=== PATIENT | female | born 1990 | race Caucasian/White ===

== ENCOUNTER 2021-01-16 22:30 | Emergency (ER) | payer MEDICAID, SELFPAY ==
[2021-01-16 23:06] VITALS: BP 112/66; PULSE 72; RESP 16; TEMP 37.3; O2SAT 96; BMI 32.8
[2021-01-17 00:06] LABS: Strep A Nucleic Acid Positive (Negative)
[2021-01-17] MEDS: Acetaminophen 325 MG TABLET 650 MG PO (00:45)
--- NOTE | 2021-01-17 00:45 | PC.NURSE ---
PT REQUESTING TYLENOL FOR PAIN.
[2021-01-17] MEDS: Amoxicillin/Potassium Clav 875 MG TABLET PO (00:56)
--- NOTE | 2021-01-17 00:56 | PC.NURSE ---
Medicated per MAR. Awaiting primary MD pinto.
--- NOTE | 2021-01-17 01:05 | PC.NURSE ---
at bedside for primary eval.
--- NOTE | 2021-01-17 01:07 | ED_ITS ---
HPI - General Adult General Chief complaint: General Medical Stated complaint: Tongue swelling Time Seen by Provider: 01/17/21 00:47 Source: patient Mode of arrival: ambulatory History of Present Illness HPI narrative: 30-year-old female with presentation for sore throat and concern for tongue swelling that started today with subjective fevers and chills but otherwise denies shortness of breath, chest pain/palpitations and denies any lip or facial swelling. Related Data Previous Rx's Medication Instructions Recorded amoxicillin-pot clavulanate 1 tab PO Q12H 10 Days #20 tab 01/17/21 [Augmentin] Allergies Allergy/AdvReac Type Severity Reaction Status Date / Time No Known Allergies Allergy Verified 01/16/21 23:05 Review of Systems Review of Systems: Pertinent positives and negatives as stated in HPI 10 point review of systems is otherwise negative. [facility] Past Medical History Source: nursing notes reviewed Medical History Anxiety Asthma Physical Exam Vital Signs: Vital Signs: Last Vital Signs Temp 99.2 F 01/16/21 23:06 Pulse 72 01/16/21 23:06 Resp 16 01/16/21 23:06 BP 112/66 01/16/21 23:06 Pulse Ox 96 01/16/21 23:06 Body Mass Index 32.8 VITAL SIGNS: Reviewed. GENERAL: Well developed, well nourished, in no acute distress. HEAD: Normocephalic/atraumatic EYES: PERRLA, EOMI EARS: Ext canals without abnormality, TMs non-bulging and non-erythematous NOSE: Nares patent bilateral OROPHARYNX: no oral lesions noted, posterior pharynx clear but noted tonsillar enlargement/erythema NECK: Supple, + adenopathy LUNGS: Normal breath sounds. No adventitious sounds or accessory muscle use. SpO2<96> CARDIOVASCULAR: Regular rate and rhythm without noted murmurs ABDOMEN: Soft, non-tender, non-distended with bowel sounds. SKIN: Inspection of the skin reveals no rashes NEUROLOGIC: Alert and oriented x 4. Strength and sensation to light touch were grossly intact x 4. Course Course Course Narrative: 30-year-old female with history and clinical presentation consistent with pharyngitis, doubt allergic reaction. And on review of all investigations patient is noted B strep positive. She received initial antibiotics and Tylenol here in the emergency room will be discharged home with remaining course of antibiotics. Medical Decision Making Lab Data Labs: Lab Results 01/16/21 Range/Units 23:17 S. pyogenes GrpA JAKE Positive A (Negative) Discharge Plan Discharge Clinical Impression: Strep pharyngitis Patient Disposition: Home, Self-Care Instructions: Strep Throat (ED) Additional Instructions: Follow-up with your primary care provider in the next 2-3 days for re-evaluation and further outpatient management. Return to the ER for acute worsening of symptoms. Prescriptions: New amoxicillin-pot clavulanate [Augmentin] 875-125 mg tablet 1 tab PO Q12H 10 Days Qty: 20 RF: 0 Referrals: Refugio Lynne MD [Primary Care Provider] - 2 days (Re-evaluation after being treated for strep pharyngitis)
== END 2021-01-17 01:31 | disposition home or self-care (01) ==
LOC: HO.ED 01-17 01:20
PROVIDERS: Emergency Provider Student in an Organized Health Care Education/Training Program; PCP Internal Medicine
DX: J02.0 Streptococcal pharyngitis (principal); J02.9 Acute pharyngitis, unspecified
CPT/HCPCS: 36415; 87651; 99283

== ENCOUNTER 2021-02-20 16:40 | Emergency (ER) | payer MEDICAID, SELFPAY ==
--- NOTE | ~2021-02-20 | CT_ITS ---
EXAMINATION: CT HEAD WITHOUT CONTRAST CLINICAL INFORMATION: Head injury and headache. COMPARISON: CT scan of the head dated 06/09/2012. TECHNIQUE: Contiguous axial imaging was performed from the skull base to vertex without intravenous administration of contrast. This CT examination was performed using dose optimization techniques as appropriate, variously including the following: *Automated exposure control *Adjustment of mA and/or kV according to patient size (this includes techniques or standardized protocols for targeted exams where dose is matched to indication/reason for exam; i.e. extremities or head) *Use of iterative reconstruction technique DLP: 733 mGy-cm FINDINGS: There is no evidence of acute intracranial hemorrhage or territorial infarction. No abnormal mass effect or midline shift is seen. Hendricks to white matter differentiation is well preserved. No extra-axial fluid collections are identified. The ventricles are normal in size. There is no abnormal attenuation within the brain parenchyma. The osseous structures and soft tissues are normal. Small mucous retention cyst is seen in the left maxillary sinus. The mastoid air cells and visualized portions of the paranasal sinuses are otherwise well aerated. CT/CT head/brain wo con IMPRESSION: No acute intracranial pathology.
[2021-02-20 17:05] VITALS: BP 102/70; PULSE 82; RESP 16; TEMP 36.7; O2SAT 98; BMI 31.8
[2021-02-20 18:00] VITALS: BP 116/68; PULSE 75; RESP 18; O2SAT 98
[2021-02-20] MEDS: Acetaminophen 325 MG TABLET 650 MG PO (18:42)
--- NOTE | 2021-02-20 19:29 | ED.FALL ---
HPI - Fall General Chief Complaint: Fall Stated Complaint: concussion? Time Seen by Provider: 02/20/21 19:27 Source: patient Mode of arrival: ambulatory Limitations: no limitations History of Present Illness HPI Narrative: 30-year-old female came in for evaluation after fell and hit her head. Patient was going down stair missed a step and fell backward hitting her head on the concrete stair, questionable LOC, patient was bleeding from laceration at the back of her head, patient now is feeling nauseous and headache. Patient declined any neck pain, patient reporting no other injuries. Related Data Previous Rx's Medication Instructions Recorded amoxicillin 875 mg-potassium 1 tab PO Q12H 10 Days #20 tab 01/17/21 clavulanate 125 mg tablet (Augmentin) Allergies Allergy/AdvReac Type Severity Reaction Status Date / Time No Known Allergies Allergy Verified 01/16/21 23:05 Review of Systems Review of Systems: All other systems are reviewed and are negative Constitutional: Reports as per HPI and Reports no additional constitutional complaints Eyes: Reports as per HPI and Reports no additional eye complaints Reports system reviewed and no additional complaints, except as documented Cardiovascular: Reports as per HPI and Reports no additional cardiovascular complaints Respiratory: Reports as per HPI and Reports no additional respiratory complaints Gastrointestinal: Reports as per HPI and Reports no additional gastrointestinal complaints Genitourinary: Reports no additional female genitourinary complaints Musculoskeletal: Reports no additional musculoskeletal complaints Skin/Breast: Reports system reviewed and no additional complaints, except as docu Psychiatric: Reports no additional psychiatric complaints Endocrine: Reports no additional endocrine complaints Hematologic/Lymphatic: Reports no additional hematologic/lymphatic complaints Allergic/Immunologic: Reports no additional allergic/immunologic complaints Reports system reviewed and no additional complaints, except as documented and Reports Abnormal speech present [facility] Past Medical History Medical History Anxiety Asthma Social History Social History Alcohol intake: unknown Patient Tobacco Use Status: Current everyday Tobacco user Use of substances other than those prescribed or required for medical reasons: No Physical Exam Vital Signs: Vital Signs: Last Vital Signs Temp 98.1 F 02/20/21 17:05 Pulse 82 02/20/21 17:05 Resp 16 02/20/21 17:05 BP 102/70 02/20/21 17:05 Pulse Ox 98 02/20/21 17:05 Body Mass Index 31.8 Vital signs have been reviewed as appeared to be correct. Blood pressure normal. Heart rate normal. Respiration rate normal. Temperature normal. Oxygen saturation normal. Appearance: Alert. Oriented X3. No acute distress. Head: Normal external exam. Normocephalic. 1cm single and superficial laceration at the occipital area of the head no active bleed No Walden signs noted. No raccoon eyes noted Eyes: PERRLA. EOMI. Conjunctiva and sclera normal. Eyelids normal. ENT: TM's Normal. Pharynx normal. Uvula midline. Moist mucous membranes. No trismus noted. No drooling noted. No muffled voice noted. Neck: Normal inspection. Neck supple. FROM. No adenopathy. Thyroid Normal. No meningeal signs. No neck mass noted. CVS: Normal heart rate and rhythm. Heart sound normal. No murmurs noted. Pulses normal throughout. Respiratory: No respiratory distress. Painless inspiration. Breath sounds normal. No wheezes/rales/rhonchi noted. Chest nontender. No accessory muscle usage noted or decreased air movement noted. Abdomen: Soft and nontender. Bowel sounds normal in all 4 quadrants. No distention noted. No organomegaly noted. No visible injury noted. Back: No CVA tenderness. Full range of motion noted. Skin: Skin warm and dry. Normal skin color. Normal skin turgor. No rashes/lesions/lacerations noted. Extremities: No lower extremity edema. Extremities exhibit normal range of motion. Extremities nontender. Neuro: Oriented X 3. Cranial nerve exam: II-XII are grossly intact No motor deficit. No sensory deficit. Reflexes normal. GCS of 15 Course Course Course Narrative: Assessment and plan. 30-year-old female came in after head injury, GCS of 15, head CT is negative, neuro exam is normal, patient up-to-date on her vaccination no tetanus shot is needed, small laceration on the occipital scalp area need no suturing no active bleeding. MDM - Fall Imaging Data CT scan - head: Radiologist's impression: No acute pathology. Discharge Plan Discharge Clinical Impression: Concussion with loss of consciousness Patient Disposition: Home, Self-Care Instructions: Concussion (ED) Prescriptions: No Action amoxicillin-pot clavulanate [Augmentin] 875-125 mg tablet 1 tab PO Q12H 10 Days Qty: 20 RF: 0 Referrals: Physician,Unknown [Primary Care Provider] - 2 days
[2021-02-20] MEDS: oxyCODONE HCl Immed Release 5 MG TABLET PO (21:34)
[2021-02-20] MEDS: Ondansetron ODT 4 MG TAB.RAPDIS TRANSLINGU (21:34)
== END 2021-02-20 22:21 | disposition home or self-care (01) ==
LOC: HO.ED 19:49
PROVIDERS: Emergency Provider Emergency Medicine
DX: S06.0X0A Concussion without loss of consciousness, initial encounter (principal); S01.01XA Laceration without foreign body of scalp, initial encounter; W10.8XXA Fall (on) (from) other stairs and steps, initial encounter; Y93.89 Activity, other specified; Y92.9 Unspecified place or not applicable; Y99.9 Unspecified external cause status
CPT/HCPCS: 70450; 99284; 99285

== ENCOUNTER → 2021-03-09 11:43 | Outpatient (BNVA) | payer MEDICAID, SELFPAY | PROVIDERS: Visit Provider Obstetrics & Gynecology ==

== ENCOUNTER 2021-03-10 15:26 | Outpatient (REF) | payer MEDICAID, SELFPAY | END 2021-03-10 15:27 | disposition home or self-care (01) | LOC: HO.LAB 15:26 | PROVIDERS: Visit Provider Internal Medicine | DX: Z20.822 Contact with and (suspected) exposure to COVID-19 (principal) | CPT/HCPCS: C9803; U0003; U0005 ==

== ENCOUNTER 2021-07-13 11:22 | Outpatient (REF) | payer MEDICAID, SELFPAY ==
[2021-07-13 13:03] LABS: Binax Internal Control QC Valid; Binax Now Covid-19 Ag Positive (Negative)
== END 2021-07-13 11:23 | disposition home or self-care (01) ==
LOC: HO.LAB 11:22
PROVIDERS: Visit Provider Internal Medicine
DX: Z20.822 Contact with and (suspected) exposure to COVID-19 (principal)
CPT/HCPCS: C9803

== ENCOUNTER 2021-08-23 22:06 | Emergency (ER) | payer MEDICAID, SELFPAY ==
--- NOTE | ~2021-08-23 | US_ITS ---
EXAMINATION: US OBSTETRICAL ULTRASOUND CLINICAL INFORMATION: Cramping with positive test COMPARISON: None. LMP: 07/05/2021. Gestational age by maternal dates is 7 weeks 0 day. Estimated date of delivery by maternal dates is 04/11/2022. TECHNIQUE: Transabdominal scanning was performed. FINDINGS: There is a single intrauterine gestational sac with visible yolk sac, embryo/fetus, and cardiac activity. There is no significant subchorionic hemorrhage or hematoma. The uterus measures 10.0 x 5.7 x 6.7 cm. HR: 120 beats per minute. CRL (crown rump length): 0.74 cm (6 weeks 5 days +/- 4 days). МАРИЯ (estimated date of delivery): 04/13/2022 +/- 4 days. MATERNAL ADNEXA: The right maternal ovary measures 4.1 x 2.5 x 1.5 cm. The left maternal ovary measures 3.4 x 1.8 x 2.7 cm. There is no significant maternal adnexal mass. No maternal pelvic ascites. US/US OB <= 14 weeks fetus IMPRESSION: 1. Single intrauterine gestation with ultrasound gestational age of 6 weeks 5 days +/- 4 days. 2. Estimated date of delivery is 04/13/2022 +/- 4 days. 3. No maternal adnexal mass or pelvic ascites.
--- NOTE | 2021-08-23 22:11 | ECG_ITS ---
Test Reason : SYNCOPE Blood Pressure : / mmHG Vent. Rate : 072 BPM Atrial Rate : 072 BPM P-R Int : 166 ms QRS Dur : 088 ms QT Int : 416 ms P-R-T Axes : 028 049 022 degrees QTc Int : 455 ms Normal sinus rhythm Normal ECG When compared with ECG of 24-JUL-2019 16:36, No significant change was found Referred By: Luz Whitfield Electronically Signed By:SUMMER HANEY
[2021-08-23 22:12] VITALS: BP 118/76; BP 97/56; PULSE 77; PULSE 80; RESP 18; TEMP 37.1; O2SAT 98; O2SAT 99; BMI 30.9
[2021-08-23 22:44] VITALS: BP 107/61; PULSE 66
[2021-08-23 22:44] LABS: MANUAL DIFF FLAG NO
[2021-08-23 22:45] VITALS: BP 105/65; PULSE 73
[2021-08-23 22:46] LABS: Basophils Absolute Auto 0.1 X10*3/uL (0.0-0.2); Basophils Percent Auto 0.6 % (0-2); Eosinophils Absolute Auto 0.2 X10*3/uL (0.0-0.4); Eosinophils Percent Auto 1.8 % (0-4); Hemoglobin 10.5 g/dl (12.0-16.0); Imm Gran Abs Auto 0.03 X10*3/uL (0.00-0.03); Imm Gran Pct Auto 0.3 % (0.0-0.4); Lymphocytes Absolute Auto 3.3 X10*3/uL (1.2-4.9); Lymphocytes Percent Auto 30.6 % (20-40); Mean Corpuscular HGB Conc 32.8 g/dl (31.0-35.0); Mean Corpuscular Hemoglobin 28.5 pg (27.0-33.0); Mean Corpuscular Volume 86.7 fL (80.0-98.0); Mean Platelet Volume 9.4 fL (9.4-12.3); Monocytes Absolute Auto 0.9 X10*3/uL (0.1-1.2); Monocytes Percent Auto 7.9 % (2-11); Neutrophils Absolute Auto 6.4 x10*3/uL (2.0-8.3); Neutrophils Percent Auto 58.8 % (45-73); Platelet Count 219 X10*3/uL (160-400); Red Blood Count 3.69 X10*6/uL (4.20-5.50); Red Cell Distribution Width 13.1 % (11.0-16.0); White Blood Count 10.9 X10*3/uL (4.8-10.8)
[2021-08-23 22:48] VITALS: BP 97/56; PULSE 64
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
[2021-08-23 23:01] LABS: Alanine Aminotransferase 11 U/L (0-31); Albumin Level 3.7 g/dL (3.5-5.0); Alkaline Phosphatase 53 U/L (39-117); Anion Gap 9 (12-20); Aspartate Amino Transferase 17 U/L (5-31); Bilirubin Total 0.2 mg/dL (0.0-1.0); Blood Urea Nitrogen 8 mg/dL (9-16); Calcium 9.1 mg/dL (8.4-10.2); Carbon Dioxide 29 mmol/L (22-29); Chloride 105 mmol/L (96-108); Creatinine Clr Calc Pharmacy 123.6; Estimated Glomerular Filt Rate > 60; Glucose Random 105 mg/dL (60-115); Potassium 3.4 mmol/L (3.3-5.1); Sodium 140 mmol/L (135-145); Total Protein 5.8 g/dL (6.5-8.0)
[2021-08-23 23:34] LABS: HCG Quantitative 14461 mIU/mL
[2021-08-24 00:18] VITALS: BP 93/53; PULSE 71; RESP 14; O2SAT 97
[2021-08-24] MEDS: 0.9 % Sodium Chloride 1,000 ML 999 ML IV (00:33)
== END 2021-08-24 01:04 | disposition home or self-care (01) ==
PROVIDERS: Emergency Provider Student in an Organized Health Care Education/Training Program
DX: O26.91 Pregnancy related conditions, unspecified, first trimester (principal); R55 Syncope and collapse; R10.9 Unspecified abdominal pain; F17.200 Nicotine dependence, unspecified, uncomplicated; Z71.6 Tobacco abuse counseling; Z3A.01 Less than 8 weeks gestation of pregnancy
CPT/HCPCS: 36415; 76801; 80053; 84702; 85025; 93005; 96360; 99284

== ENCOUNTER 2022-03-13 09:56 | Emergency (ER) | payer MEDICAID, SELFPAY ==
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
[2022-03-13 10:15] VITALS: BP 130/62; PULSE 66; RESP 16; TEMP 36.5; O2SAT 97; BMI 30.1
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
[2022-03-13] MEDS: Acetaminophen 325 MG TABLET 975 MG PO (10:43)
== END 2022-03-13 11:06 | disposition home or self-care (01) ==
PROVIDERS: Emergency Provider Emergency Medicine
DX: S00.33XA Contusion of nose, initial encounter (principal); R04.0 Epistaxis; F17.200 Nicotine dependence, unspecified, uncomplicated; Y04.8XXA Assault by other bodily force, initial encounter; Y93.9 Activity, unspecified; Y92.9 Unspecified place or not applicable; Y99.9 Unspecified external cause status; Z71.6 Tobacco abuse counseling; Z79.899 Other long term (current) drug therapy
CPT/HCPCS: 70160; 99283

== ENCOUNTER 2022-03-28 12:36 | Emergency (ER) | payer MEDICAID, SELFPAY ==
[2022-03-28 12:52] VITALS: BP 132/90; PULSE 111; O2SAT 97; BMI 28.8
[2022-03-28] MEDS: LORazepam 1 MG TABLET PO (12:59)
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
--- NOTE | 2022-03-28 13:44 | MHC.CARE ---
Pt presented to [facility] ED for anxiety and depression. Pt is currently followed by a therapist at [facility]. Pt feels she needs to be restarted on medications as they would be helpful in the past.? Pt does not endorse SI/HI/VH/AH. Pt expressed interest in group therapy and wants more support in help coping with life stressors.? CARE Team emailed [facility] to placed Pt on the list to see a psychiatrist at [facility]. CARE Team referred Pt to PHP at [facility]. CARE Team will provided Pt with a follow up call 1-[address] Cid in agreement with plan of care.
--- NOTE | 2022-03-31 09:37 | MHC.CARE ---
CARE Team left with Pt.
== END 2022-03-28 14:54 | disposition home or self-care (01) ==
PROVIDERS: Emergency Provider Emergency Medicine
DX: F41.9 Anxiety disorder, unspecified (principal); F32.A Depression, unspecified; F17.200 Nicotine dependence, unspecified, uncomplicated
CPT/HCPCS: 99283; 99284

== ENCOUNTER → 2022-04-06 13:34 | Outpatient (BNVA) | payer MEDICAID, SELFPAY | PROVIDERS: PCP Internal Medicine; Visit Provider Surgery | DX: K64.4 Residual hemorrhoidal skin tags (principal) | CPT/HCPCS: 46600; 99202 ==

== ENCOUNTER 2022-04-09 20:58 | Emergency (ER) | payer MEDICAID, SELFPAY ==
[2022-04-09 21:03] VITALS: BP 126/83; PULSE 75; RESP 18; TEMP 36.7; O2SAT 97; BMI 29.7
[2022-04-09] MEDS: Ondansetron ODT 4 MG TAB.RAPDIS TRANSLINGU (21:07)
[2022-04-09 22:37] LABS: COVID-19 Test Negative (Negative); IDNOW Serial# 55D5AD1C
== END 2022-04-10 00:03 | disposition left against medical advice (07) ==
PROVIDERS: Emergency Provider Emergency Medicine; PCP Internal Medicine
DX: R11.2 Nausea with vomiting, unspecified (principal); R19.7 Diarrhea, unspecified; Z20.822 Contact with and (suspected) exposure to COVID-19; F17.200 Nicotine dependence, unspecified, uncomplicated
CPT/HCPCS: 87635; 99281; 99283

== ENCOUNTER 2022-06-24 13:08 | Emergency (ER) | payer OTHER, SELFPAY ==
[2022-06-24 13:13] VITALS: BP 103/72; BP 140/90; PULSE 100; PULSE 73; RESP 18; TEMP 36.8; O2SAT 98; BMI 30.6
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
== END 2022-06-24 15:58 | disposition home or self-care (01) ==
PROVIDERS: Emergency Provider Student in an Organized Health Care Education/Training Program; PCP Internal Medicine
DX: S13.4XXA Sprain of ligaments of cervical spine, initial encounter (principal); R51.9 Headache, unspecified; M54.2 Cervicalgia; F17.210 Nicotine dependence, cigarettes, uncomplicated; V43.52XA Car driver injured in collision with other type car in traffic accident, initial encounter; Y93.9 Activity, unspecified; Y92.410 Unspecified street and highway as the place of occurrence of the external cause; Y99.9 Unspecified external cause status; Z79.899 Other long term (current) drug therapy; Z71.6 Tobacco abuse counseling
CPT/HCPCS: 70450; 72125; 99283; 99284

== ENCOUNTER 2022-07-12 07:08 | Day surgery (SDC) | payer OTHER, MEDICAID, SELFPAY ==
[2022-05-09 14:32] VITALS: BMI 29.6
--- NOTE | 2022-05-16 09:26 | HO.ANESPROP2 ---
HPI - Anesthesia Eval Consult details Narrative: 31yo F for EUA, Hemorrhoidectomy PMFSH Active Problems Active Problems: All Active Problems (Updated 05/09/22 @ 14:17 by Kristen Carey RN) Family planning (Acute) External hemorrhoids with complication (Acute) Past Medical History Medical History (Updated 05/09/22 @ 14:17 by Kristen Carey RN) Anxiety Asthma External hemorrhoids with complication History of COVID-19 Surgical History Surgical History (Updated 05/09/22 @ 14:19 by Kristen Carey RN) Hx of section Hx of dilation and curettage Tubal ligation status Social History Social History Alcohol intake: unknown Patient Tobacco Use Status: Current everyday Tobacco user Meds Allergies Allergy/AdvReac Type Severity Reaction Status Date / Time No Known Allergies Allergy Verified 04/09/22 21:03 Exam Exam Date and Time: May 16, 2022 0926 Height,Weight and Vital Signs: Height 5 ft 3 in Weight 75.863 kg Assessment and Plan Assessment Anesthesia Assessment: Chart Reviewed
--- NOTE | 2022-07-11 09:39 | HO.ANESPROP2 ---
Documented by User: Taniya Villatoro NP 07/11/22 09:39 HPI - Anesthesia Eval Consult details Narrative: 32yo F for EUA, Hemorrhoidectomy PMFSH Active Problems Active Problems: All Active Problems (Updated 06/25/22 @ 00:01 by Roe Vaz) Family planning (Acute) External hemorrhoids with complication (Acute) Past Medical History Medical History Anxiety Asthma External hemorrhoids with complication History of COVID-19 Surgical History Surgical History (Updated 05/09/22 @ 14:19 by Kristen Carey, RN) Hx of section Hx of dilation and curettage Tubal ligation status Social History Social History Alcohol intake: unknown Patient Tobacco Use Status: Current everyday Tobacco user Tobacco use type: Cigarette Cigarettes Per Day: 6 Use of substances other than those prescribed or required for medical reasons: Yes Advance Directives: No Advance Directives Information Provided: Yes Meds Allergies Allergy/AdvReac Type Severity Reaction Status Date / Time No Known Allergies Allergy Verified 06/24/22 13:20 Exam Exam Date and Time: July 11, 2022 0939 Height,Weight and Vital Signs: Height 5 ft 3 in Weight 75.863 kg Assessment and Plan Assessment Anesthesia Assessment: Chart Reviewed Documented by User: Lisa Oliva MD 07/12/22 09:45 [facility] Past Medical History Medical History Anxiety Asthma External hemorrhoids with complication History of COVID-19 Functional capacity: independent ambulation Patient : No Family History Family history of problems with anesthesia: No Surgical History Surgical History (Updated 05/09/22 @ 14:19 by Kristen Carey RN) Hx of section Hx of dilation and curettage Tubal ligation status Social History Social History Alcohol intake: unknown Patient Tobacco Use Status: Current everyday Tobacco user Tobacco use type: Cigarette Cigarettes Per Day: 6 Use of substances other than those prescribed or required for medical reasons: Yes Advance Directives: No Advance Directives Information Provided: Yes Meds Allergies Allergy/AdvReac Type Severity Reaction Status Date / Time No Known Allergies Allergy Verified 06/24/22 13:20 Exam Airway Mallampati Class: II TM Dist: >3cm Neck ROM: Full Heart: RRR Lungs: CtA Assessment and Plan Final Anesthetic Review Family History of Problems with Anesthesia: No ASA Class: II Final Preanesthetic Review: Meds/Allgs Chart Reviewed and Consent Obtained/Reviewed Patient Risk: Low Procedure Risk: Low Anesthetic Plan Anesthetic Plan: GA Disposition: Standard PACU
[2022-07-12] VITALS (9 sets, daily range): BP systolic 106–121; BP diastolic 61–76; PULSE 64–76; RESP 16–18; TEMP 36.2–36.8; O2SAT 99–100; BMI 28.8
[2022-07-12] MEDS: Lactated Ringers 1,000 ML 100 ML IVCONT (07:58)
--- NOTE | 2022-07-12 09:22 | W.PM.OPN ---
Operative Note Operative Note Date of Service: 07/12/22 Narrative: Preop diagnosis: Hemorrhoids with complication Postop diagnosis: Internal and external complications x2 Procedure: Exam under anesthesia, hemorrhoidectomy x2 columns Surgeon: Ihsan Dick MD Patient is a 32-year-old female has been complaining of chronic issues with pain, discomfort with her hemorrhoids. She was seen in the office. She was noted to have non bulky hemorrhoidal columns on both the left and right side. However she had wanted to proceed with hemorrhoidectomy because of her discomfort. She was aware of the risks, benefits, and alternatives. She was brought to the operating room. She was placed in prone malik-knife position under general anesthesia via endotracheal tube. The buttocks were retracted with wide tape laterally. The perianal area was prepped and draped in the usual sterile fashion. A surgical time-out was done. The patient received Cefotan 2 g IV preoperatively Examination of the ulnar feels revealed external hemorrhoid columns on both the left and right side. I inserted a Javi Avalos retractor. I examined the anal canal circumferentially. There was no fissure or induration. These appeared to be mixed internal and hemorrhoidal columns on both the left and the right. There were no other lesions seen. I applied a Doyle grasper at the hemorrhoidal column on the left to retract this out into the field. I placed a figure stitch at the pedicle using chromic 3-0. I made an incision around this hemorrhoidal column to the perianal skin using a blade 15. I excised this hemorrhoidal column above the plane of sphincters using Metzenbaum scissors. Again this appeared to be a mix of internal and external hemorrhoids. I closed the incision with a running chromic 3-0 stitch. Hemostatic [id number] sutures were placed for oozing areas. The the column on the right side was also retracted with a Doyle grasper. I made a figure of 8 stitch at the pedicle and made incision around this hemorrhoidal column to the perianal skin with a blade 15. I excised this hemorrhoidal column along this incision about the plane of sphincters using Metzenbaum scissors. I closed this incision with a running chromic 3-0 stitch. Hemostasis was confirmed. Once hemostasis was achieved, I infiltrated the perianal area with Marcaine 0.5% for postop analgesia. Dressings were applied. The procedure was completed. The patient tolerated well. There were no immediate complications. Initial and final counts of sponges and instruments were correct. Estimated blood loss about 15 cc The patient was extubated without difficulty and transferred to the recovery room with stable vital signs.
[2022-07-12] MEDS: Acetaminophen 1,000 MG/100 ML PIGGYBACK 400 MG IV (10:45)
--- NOTE | 2022-07-12 11:24 | HO.POSTANES ---
Post Anesthesia Evaluation Post Anesthesia Evaluation Vital Signs: Vital Signs Temp Pulse Resp BP Pulse Ox O2 Del Method 07/12/22 10:55 98.0 F 67 18 107/69 99 Room Air 07/12/22 10:40 68 18 114/65 99 Room Air 07/12/22 10:10 66 18 115/71 99 Room Air 07/12/22 09:55 68 16 121/76 99 Room Air 07/12/22 09:50 64 16 106/74 99 Room Air 07/12/22 09:45 71 16 116/75 99 Room Air 07/12/22 09:40 97.1 F 68 16 111/76 99 Room Air 07/12/22 07:40 97.5 F 76 16 108/61 100 Room Air Anesthesia: General Endotracheal-GETA Mental Status: Awake Pain Control: Satisfactory Nausea/Vomiting: None Hydration: Adequate Anesthesia-Related Issues: No Anes. Related Issues
== END 2022-07-12 12:15 | disposition home or self-care (01) ==
PROVIDERS: PCP Internal Medicine; Visit Provider Surgery
PROC: (CPT 46250; principal; 2022-07-12 08:40)
DX: K64.4 Residual hemorrhoidal skin tags (principal); F41.1 Generalized anxiety disorder; J45.909 Unspecified asthma, uncomplicated; Z79.899 Other long term (current) drug therapy; F17.210 Nicotine dependence, cigarettes, uncomplicated
CPT/HCPCS: 46250; 88304; J0131; J1100; J2250; J2405; J2795; J3010

== ENCOUNTER 2022-12-17 21:15 | Emergency (ER) | payer MEDICAID, SELFPAY ==
--- NOTE | ~2022-12-17 | XR_ITS ---
EXAMINATION: XR CHEST CLINICAL INFORMATION: Injury COMPARISON: 09.15.2019 TECHNIQUE: 2 views of the chest were obtained. FINDINGS: No significant abnormality is noted involving the heart, lungs, mediastinum, bony thorax or soft tissues. XR/XR chest 2V IMPRESSION: Unremarkable examination.
[2022-12-17 21:18] VITALS: BP 100/60; PULSE 92; RESP 18; TEMP 36.6; O2SAT 95; BMI 28.3
[2022-12-17 22:57] VITALS: BP 106/61; PULSE 68; RESP 18; TEMP 36.9; O2SAT 98
--- NOTE | 2022-12-17 23:07 | PC.NURSE ---
patient is in bed with eyes open patient stated the pain is a 10/10 patient vitals are stable patient is AAOX4 patient is waiting to be seen by the doctor patient will continue to be monitored for safety
--- NOTE | 2022-12-17 23:26 | ED.GENADULT ---
HPI - General Adult General Chief complaint: Dyspnea Stated complaint: rib cage injured, difficulty breathing Time Seen by Provider: 12/17/22 23:26 Source: patient Mode of arrival: ambulatory Limitations: no limitations History of Present Illness HPI narrative: Patient is a 32 year old assigned female at with no reported medical history presenting to the emergency department today with left rib pain. Patient states that she was messing around with her sister when she heard a crack on the left side of her rib cage. Patient states that it now hurts to take a deep breath. Patient denies any head strike or loss of consciousness, dizziness, lightheadedness, abdominal pain, nausea, vomiting, fever, chills, blurry vision, double vision, loss of vision, chest pain, difficulty breathing, shortness of breath, back pain, night sweats, pain with urination, increased urinary frequency, increased urinary urgency, blood in her urine or stool, syncope or a near syncopal episode, recent trauma or falls, bowel incontinence, bladder incontinence, bowel retention, bladder retention, or any other complaints at this time. Onset (ago): hour(s) Location: left (ribs) Radiation: non-radiation Severity: mild Severity scale (1-10): 2 Quality: aching Pain Consistency: constant Relieving factors: none Exacerbating factors: other (breathing) Associated symptoms: denies other symptoms Treatments prior to arrival: none Related Data Previous Rx's Medication Instructions Recorded hydroxyzine HCl 25 mg tablet 25 mg PO Q8H PRN anxiety #30 tabs 03/28/22 cyclobenzaprine 5 mg tablet 5 mg PO TID PRN muscle spasm #10 06/24/22 tabs ibuprofen 600 mg tablet 600 mg PO Q6H PRN pain #20 tabs 06/24/22 docusate sodium 100 mg capsule 100 mg PO BID #60 caps 07/12/22 (Colace) ibuprofen 600 mg tablet 600 mg PO Q6H PRN pain #30 tabs 07/12/22 oxycodone-acetaminophen 5 mg-325 1 tab PO Q4-6H PRN pain #30 tabs 07/12/22 mg tablet (Percocet) Allergies Allergy/AdvReac Type Severity Reaction Status Date / Time No Known Allergies Allergy Verified 06/24/22 13:20 Review of Systems Constitutional: Constitutional: Reports no additional constitutional complaints, Denies chills, Denies fever(s) and Denies night sweats Eyes: Eyes: Reports no additional eye complaints, Denies blurry vision, Denies change in vision, Denies diplopia, Denies eye discharge, Denies loss of vision and Denies eye pain ENT: Denies dizziness Cardiovascular: Cardiovascular: Reports no additional cardiovascular complaints, Denies chest pain, Denies lightheadedness, Denies Loss of Consciousness and Denies dyspnea Respiratory: Respiratory: Reports no additional respiratory complaints and Denies dyspnea Gastrointestinal: Gastrointestinal: Reports no additional gastrointestinal complaints, Denies abdominal pain, Denies melena, Denies hematochezia, Denies change in bowel habits and Denies change in stool character Genitourinary: Genitourinary: Denies hematuria, Denies urinary frequency, Denies dysuria, Denies urinary incontinence, Denies urinary hesitancy and Denies urinary urgency Musculoskeletal: Musculoskeletal: Reports no additional musculoskeletal complaints, Denies numbness and Denies tingling Comments: left rib pain Neurologic: Denies dizziness, Denies loss of vision, Denies numbness and Denies tingling Psychiatric: Psychiatric: Reports no additional psychiatric complaints Endocrine: Endocrine: Reports no additional endocrine complaints Hematologic/Lymphatic: Hematologic/Lymphatic: Reports no additional hematologic/lymphatic complaints Allergic/Immunologic: Allergic/Immunologic: Reports no additional allergic/immunologic complaints PMFSH Past Medical History Attestation statement: The following information was validated with the patient. Source: old records reviewed and nursing notes reviewed Medical History Anxiety Asthma External hemorrhoids with complication History of COVID-19 Surgical History Hx of section Hx of dilation and curettage Tubal ligation status Social History Social History Alcohol intake: current Alcohol intake frequency: holidays/special occasions only Alcohol type: hard liquor Patient Tobacco Use Status: Current everyday Tobacco user Tobacco use type: Cigarette Cigarettes Per Day: 6 Smoked in Last 30 Days: Yes Use of substances other than those prescribed or required for medical reasons: No Substance Use Type: Marijuana Substance Use Frequency: Chronic Longstanding Last Used Substance: Just Prior to Admission Any prior treatment program specific to substance use: No Advance Directives: No Advance Directives Information Provided: No Patient : No Physical Exam ED Vital Signs: Vital Signs - 24 hr 12/17/22 21:18 12/17/22 22:57 Temperature 98 F 98.4 F Pulse Rate 92 68 Respiratory Rate 18 18 Blood Pressure 100/60 106/61 Pulse Oximetry 95 98 Oxygen Delivery Method Room Air Room Air BMI result Body Mass Index 28.3 Const General: cooperative, no acute distress, alert and awake Nutritional Appearance: well nourished Orientation/consciousness: patient oriented x3 Limitations: no limitations HENMT Head: Yes normal to inspection and Yes atraumatic Ears: hearing grossly normal bilaterally and external ears normal General nose exam: Normal external nose present, no nasal discharge noted and no epistaxis Face and sinus: Yes normal facial exam, No abrasion and No laceration Mouth: Normal oral and palatal mucosa present, no drooling and no muffled voice Eyes General: appearance normal, both eyes and all related structures Periorbital: periorbital findings normal Eyelids: Yes eyelids normal Conjunctivae: conjunctivae normal Pupils: Equal, round and reactive pupils present EOM: EOMs intact bilaterally Neck Neck: Yes normal visual inspection, Yes full ROM and Yes no lymphadenopathy Chest Chest palpation & inspection: normal inspection of the chest Resp Effort & Inspection: normal respiratory effort and able to speak in complete sentences Auscultation: clear to auscultation bilaterally GI Inspection: Yes normal to inspection Neuro General: patient oriented x3 and moves all extremities Cranial nerves: Yes Equal, round and reactive pupils present Cognition (Neuro): normal cognition Motor exam (neuro): 5/5 motor strength present throughout Sensory Exam: Normal double simultaneous stimulation for sensation Coordination: [id number] test normal Extrem General: Yes normal to inspection, Yes full ROM and Yes capillary refill normal Psych Appearance: grossly normal Mental Status: mental status grossly normal Affect: normal affect Attitude: cooperative Thought process: Normal thought process present Thought content: Normal thought content present Insight: Good insight present (Psych) Medications Administered Discontinued Medications Generic Name Dose Route Start Last Admin Trade Name Freq PRN Reason Stop Dose Admin Ketorolac Tromethamine 15 mg 12/17/22 23:50 12/18/22 01:07 Ketorolac Tromethamine 15 Mg/Ml Vial IM 12/17/22 23:51 15 mg ONCE ONE Administration Medical Decision Making Medical Decision Making MDM Narrative: Patient is a 32 year old assigned female at with no reported medical history presenting to the emergency department today with left sided rib pain. Patient's physical exam was unremarkable. Patient's chest x-ray showed no acute process. I explained my physical exam findings as well as all test results to the patient. I answered all questions asked by the patient. Patient received IM Toradol which she stated helped her symptoms significantly. I stressed the importance of the patient taking her medication as prescribed. I stressed the importance of the patient following up with her primary care provider. I stressed the importance of the patient returning to the emergency department immediately if her symptoms were to worsen or if she were to develop any dizziness, shortness of breath, difficulty breathing, chest pain, blurry vision, loss of vision, nausea, vomiting, abdominal pain, fever, chills, back pain, or any other complaints. Patient verbalized agreement and understanding with this treatment plan and discharge. Differential Diagnosis Differential Diagnoses: The differential diagnosis associated with the presentation includes rib contusion, rib pain Independent Interpretation I performed an independent interpretation of an: Plain X-Ray Interpretation: My interpretation is in agreement with the radiologist's impression of this imaging study. EXAMINATION: XR CHEST CLINICAL INFORMATION: Injury COMPARISON: 09.15.2019 TECHNIQUE: 2 views of the chest were obtained. FINDINGS: No significant abnormality is noted involving the heart, lungs, mediastinum, bony thorax or soft tissues. XR/XR chest 2V IMPRESSION: Unremarkable examination. Dictated By: Shashank Calixto MD Signed By: Electronically signed by Shashank Calixto MD 12/17/22 8373 Discharge Plan Discharge Clinical Impression: Pain in rib Patient Disposition: Home, Self-Care Instructions: Chest Pain (DC) Additional Instructions: Follow up with your primary care provider. Return to the emergency department immediately if your symptoms worsen or if you develop any dizziness, shortness of breath, difficulty breathing, chest pain, blurry vision, loss of vision, nausea, vomiting, abdominal pain, fever, chills, back pain, or any other complaints. Prescriptions: No Action hydroxyzine HCl 25 mg tablet 25 mg PO Q8H PRN (Reason: anxiety) Qty: 30 0RF oxycodone-acetaminophen [Percocet] 5-325 mg tablet 1 tab PO Q4-6H PRN (Reason: pain) Qty: 30 0RF Rx Instructions: Partial Fill upon patient request. docusate sodium [Colace] 100 mg capsule 100 mg PO BID Qty: 60 2RF ibuprofen 600 mg tablet 600 mg PO Q6H PRN (Reason: pain) Qty: 30 0RF ibuprofen 600 mg tablet 600 mg PO Q6H PRN (Reason: pain) Qty: 20 0RF cyclobenzaprine 5 mg tablet 5 mg PO TID PRN (Reason: muscle spasm) Qty: 10 0RF Referrals: [facility] [Primary Care Provider] - Stand Alone Forms: Work/School Release Interventions: ED Discharge Assessment Last Done: 12/18/22 01:51 Discharge Date/Time: 12/18/22 01:51 Print Language: Haitian
[2022-12-18] MEDS: Ketorolac Tromethamine 15 MG/ML VIAL IM (01:07)
== END 2022-12-18 01:51 | disposition home or self-care (01) ==
PROVIDERS: Emergency Provider Emergency Medicine
DX: R07.81 Pleurodynia (principal); F17.210 Nicotine dependence, cigarettes, uncomplicated; F12.90 Cannabis use, unspecified, uncomplicated; Z79.899 Other long term (current) drug therapy
CPT/HCPCS: 71046; 96372; 99284; J1885

== ENCOUNTER 2022-12-18 10:29 | Emergency (ER) | payer MEDICAID, SELFPAY ==
--- NOTE | ~2022-12-18 | CT_ITS ---
EXAMINATION: CT CHEST WITHOUT CONTRAST CLINICAL INFORMATION: Trauma, evaluate for fracture. COMPARISON: Chest x-ray 12/17/2022. TECHNIQUE: Multidetector volumetric CT imaging of the chest was done. Axial MIP volume rendering provided. Sagittal and coronal reformatted images were obtained. This CT examination was performed using dose optimization techniques as appropriate, variously including the following: *Automated exposure control *Adjustment of mA and/or kV according to patient size (this includes techniques or standardized protocols for targeted exams where dose is matched to indication/reason for exam; i.e. 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 LUNGS: The lungs are well-expanded and clear of acute pneumonic process. There is a 3 mm nodule along the left major fissure axial image 249/9, likely fissure lymph node. No additional nodules visualized. . MEDIASTINUM: Thyroid lobes are symmetrical and normal. Central trachea and the bronchi widely patent. Heart size and great vessels are normal caliber. No pericardial effusion seen. No abnormal lymph nodes seen. CORONARY ARTERY CALCIFICATION: None visualized on this study. PLEURA: There is no pleural effusion. No pleural mass or thickening. AXILLA: No lymphadenopathy. UPPER ABDOMEN: Visualized liver, spleen, pancreas appears unremarkable. There is a 8 mm radiopaque stone midpole left kidney no caliectasis or hydronephrosis seen. OSSEOUS STRUCTURES: There is no aggressive lytic or sclerotic process seen. CT/CT chest wo IV con IMPRESSION: There is no acute left rib fracture seen.. There is a nonobstructive 8 mm radiopaque calculi mid pole left . Fleischner guidelines were followed.
[2022-12-18 10:35] VITALS: BP 116/75; BP 124/80; PULSE 65; PULSE 68; RESP 16; TEMP 35.9; O2SAT 98; O2SAT 99; BMI 29.2
--- NOTE | 2022-12-18 10:40 | ECG_ITS ---
Test Reason : RIB PAIN Blood Pressure : / mmHG Vent. Rate : 062 BPM Atrial Rate : 062 BPM P-R Int : 186 ms QRS Dur : 086 ms QT Int : 466 ms P-R-T Axes : 063 060 041 degrees QTc Int : 472 ms Normal sinus rhythm Normal ECG When compared with ECG of 23-AUG-2021 22:26, No significant change was found Referred By: Radha Ware Electronically Signed By:SUMMER HANEY
--- NOTE | 2022-12-18 10:42 | ED_ITS ---
HPI - General Adult General Chief complaint: General Medical Stated complaint: RIB PAIN,UNK IF INJURY, *NO AGE/SEX/GIVEN* Time Seen by Provider: 12/18/22 10:33 Source: patient and EMS Mode of arrival: EMS Limitations: no limitations History of Present Illness HPI narrative: This is a 32-year-old female who presents to the ER with complaints of left- sided rib pain which began yesterday. Patient reports she was wrestling with her sister and felt a cracking sensation in her left ribs. She was seen here in the ER and had x-rays of her left ribs which were negative for any bony abnormality. She was given a dose of Toradol and sent home with recommendations for supportive care. Patient reports today when she woke up she was walking to the bathroom and felt a lot of pain her left ribs as well as shortness of breath. The next thing she knew she woke up on the ground surrounded by her family. Denies pre fall symptoms of headache, dizziness or palpitations. She is concerned that she passed out. She reports increased pain to the left ribs which is worsened with movement breathing. She denies any cough, fevers, chills, abdominal pain, vomiting, diarrhea, leg swelling or leg pain. She does have some vaginal bleeding this morning which she tells me is early for her menses. Related Data Previous Rx's Medication Instructions Recorded hydroxyzine HCl 25 mg tablet 25 mg PO Q8H PRN anxiety #30 tabs 03/28/22 cyclobenzaprine 5 mg tablet 5 mg PO TID PRN muscle spasm #10 06/24/22 tabs ibuprofen 600 mg tablet 600 mg PO Q6H PRN pain #20 tabs 06/24/22 docusate sodium 100 mg capsule 100 mg PO BID #60 caps 07/12/22 (Colace) ibuprofen 600 mg tablet 600 mg PO Q6H PRN pain #30 tabs 07/12/22 oxycodone-acetaminophen 5 mg-325 1 tab PO Q4-6H PRN pain #30 tabs 07/12/22 mg tablet (Percocet) cyclobenzaprine 10 mg tablet 10 mg PO TID PRN muscle spasm #15 12/18/22 tabs ibuprofen 600 mg tablet 600 mg PO Q6H PRN pain #30 tabs 12/18/22 lidocaine 5 % topical patch 1 patch topical DAILY #15 ea 12/18/22 (Lidoderm) Allergies Allergy/AdvReac Type Severity Reaction Status Date / Time No Known Allergies Allergy Verified 06/24/22 13:20 Review of Systems Review of Systems: Yes all other systems are reviewed and are negative Constitutional: Constitutional: Reports no additional constitutional complaints, Denies body ache(s), Denies chills, Denies fever(s), Denies headache(s) and Denies weakness Eyes: Eyes: Reports no additional eye complaints and Denies change in vision ENT: Reports system reviewed and no additional complaints, except as documented, Denies dizziness, Denies headache(s), Denies nasal congestion, Denies nasal discharge and Denies neck pain Cardiovascular: Cardiovascular: Reports no additional cardiovascular complaints, Reports chest pain, Reports syncope, Denies leg edema and Reports dyspnea Respiratory: Respiratory: Reports no additional respiratory complaints, Denies cough and Reports dyspnea Gastrointestinal: Gastrointestinal: Reports no additional gastrointestinal complaints, Denies abdominal pain, Denies diarrhea, Denies nausea and Denies vomiting Genitourinary: Genitourinary: Reports no additional female genitourinary complaints and Denies urinary incontinence Musculoskeletal: Musculoskeletal: Reports no additional musculoskeletal complaints, Denies back pain, Denies arthralgias, Denies joint swelling, Denies neck pain, Denies numbness and Denies tingling Integumentary/Breasts: Skin/Breast: Reports system reviewed and no additional complaints, except as docu and Denies rash Neurologic: Reports system reviewed and no additional complaints, except as documented, Denies dizziness, Reports syncope, Denies headache(s), Denies numbness, Denies tingling and Denies weakness PMFSH Past Medical History Attestation statement: The following information was validated with the patient. Source: old records reviewed and nursing notes reviewed Medical History Anxiety Asthma External hemorrhoids with complication History of COVID-19 Surgical History Hx of section Hx of dilation and curettage Tubal ligation status Social History Social History Alcohol intake: current Alcohol intake frequency: holidays/special occasions only Alcohol type: hard liquor Patient Tobacco Use Status: Current everyday Tobacco user Tobacco use type: Cigarette Cigarettes Per Day: 6 Substance Use Type: Marijuana Advance Directives: No Advance Directives Information Provided: Yes Physical Exam ED Vital Signs: Vital Signs - 24 hr 12/18/22 10:35 12/18/22 11:57 12/18/22 11:58 Temperature 96.7 F L Pulse Rate 65 61 72 Respiratory Rate 16 Blood Pressure 116/75 123/61 116/79 Pulse Oximetry 98 Oxygen Delivery Method Room Air 12/18/22 11:58 Temperature Pulse Rate 63 Respiratory Rate Blood Pressure 115/68 Pulse Oximetry Oxygen Delivery Method BMI result Body Mass Index 29.2 Const General: cooperative, healthy appearing, comfortable and no acute distress Orientation/consciousness: patient oriented x3 Limitations: no limitations HENMT Head: Yes normal to inspection, No Walden's sign and No raccoon eyes Ears: hearing grossly normal bilaterally and TM's normal bilaterally General nose exam: Normal external nose present Throat: Yes posterior oropharynx normal, Yes tonsils normal and Yes uvula midline Eyes General: appearance normal, both eyes and all related structures Pupils: Equal, round and reactive pupils present Neck Neck: Yes normal visual inspection, Yes full ROM, Yes no lymphadenopathy and Yes no meningeal signs Chest Chest palpation & inspection: normal inspection of the chest and tenderness (Tenderness the left lateral and anterior chest wall with no ecchymosis or c) Resp Effort & Inspection: normal respiratory effort Auscultation: clear to auscultation bilaterally Cardio Rate: regular rate Rhythm: regular rhythm Peripheral pulses: Peripheral pulses 2+ throughout GI Inspection: Yes normal to inspection Palpation (GI): Soft to palpation and nontender General: Yes no CVA tenderness Back/Spine/Pelvis Back: no CVA tenderness Thoracic/Lumbar Spine: thoracic and lumbar spine normal to inspection Skin General skin exam: no rashes or lesions noted Neuro General: patient oriented x3, moves all extremities, no meningeal signs and Unable to assess gait Cranial nerves: Yes CN's II-XII intact bilaterally, Yes Equal, round and reac tive pupils present, Yes Bilaterally intact EOM present, Yes Nystagmus not present, Yes Normal facial strength present and Yes Midline tongue present Cognition (Neuro): normal cognition Gait exam (Neuro): Unable to assess gait Motor exam (neuro): 5/5 motor strength present throughout Sensory Exam: Normal double simultaneous stimulation for sensation Extrem General: Yes normal to inspection, Yes no pedal edema and Yes no calf tenderness Course Course Course Narrative: Labs are unremarkable. I doubt PE with no hypoxia, no tachypnea, no tachycardia, negative D-dimer. Will check CT chest without contrast to rule out fracture Reevaluation(s) Reevaluation #1: 1520-Patient wanted to go home prior to the results of the CT scan of the chest. She will leave against medical advice as the indication for imaging was to r/o fractures, pulmonary contusion. Medications Administered Discontinued Medications Generic Name Dose Route Start Last Admin Trade Name Glynnq PRN Reason Stop Dose Admin Acetaminophen 975 mg 12/18/22 11:53 12/18/22 12:04 Acetaminophen 325 Mg Tablet PO 12/18/22 11:54 975 mg ONCE ONE Administration Ketorolac Tromethamine 30 mg 12/18/22 10:40 12/18/22 10:55 Ketorolac Tromethamine 30 Mg/Ml Vial IVPUSH 12/18/22 10:41 30 mg ONCE ONE Administration Oxycodone HCl 5 mg 12/18/22 11:53 12/18/22 12:03 Oxycodone Hcl Immed Release 5 Mg Tablet PO 12/18/22 11:54 5 mg ONCE ONE Administration Medical Decision Making Medical Decision Making [facility] Narrative: 32-year-old female here with complaints of left-sided rib pain with an injury which occurred yesterday now with reports of increasing pain, episode of shortness of breath while walking and ? Syncope. On arrival patient is alert and oriented. She has a normal neurological exam. Her vitals are stable. She does have tenderness on palpation over the left anterior and lateral chest wall with no ecchymosis or crepitus. She has clear lung sounds. Patient had x-rays of her left ribs yesterday Will check labs, orthostatic vital signs, urine . Will provide analgesia. May consider advanced imaging Differential Diagnosis Differential Diagnoses: The differential diagnosis associated with the presentation includes Rib fracture, pneumothorax, PE, pneumonia Orthostatic hypotension, metabolic cause, ACS, anemia, Lab Data [facility] Lab Attestation statement: I reviewed the patient's lab results. 12/18/22 10:52 12/18/22 10:52 Labs: Lab Results 12/18/22 12/18/22 12/18/22 Range/Units 10:51 10:51 10:52 WBC 9.9 (4.8-10.8) X10*3/uL RBC 4.32 (4.20-5.50) X10*6/uL Hgb 12.5 (12.0-16.0) g/dl Hct 37.1 (37.0-47.0) % MCV 85.9 (80.0-98.0) fL MCH 28.9 (27.0-33.0) pg MCHC 33.7 (31.0-35.0) g/dl RDW 12.8 (11.0-16.0) % Plt Count 284 D (160-400) X10*3/uL MPV 9.7 (9.4-12.3) fL Immature Gran % (Auto) 0.2 (0.0-0.4) % Neut % (Auto) 64.6 (45-73) % Lymph % (Auto) 26.1 (20-40) % Lander % (Auto) 6.2 (2-11) % Eos % (Auto) 2.1 (0-4) % Baso % (Auto) 0.8 (0-2) % Lymph # (Auto) 2.6 (1.2-4.9) X10*3/uL Lander # (Auto) 0.6 (0.1-1.2) X10*3/uL Eos # (Auto) 0.2 (0.0-0.4) X10*3/uL Baso # (Auto) 0.1 (0.0-0.2) X10*3/uL Abs Immat Gran (auto) 0.02 (0.00-0.03) X10*3/uL Absolute Neuts (auto) 6.4 (2.0-8.3) x10*3/uL Absolute Nucleated RBC 0.000 (0.0-0.012) X10*3/uL Nucleated RBC % (auto) 0.0 (0.0-0.2) /100WBC PT (10.0-13.1) SEC INR (0.9-1.1) D-Dimer High Sensitivty NG/ML Sodium (135-145) mmol/L Potassium (3.3-5.1) mmol/L Chloride (96-108) mmol/L Carbon Dioxide (22-29) mmol/L Anion Gap (12-20) BUN (9-16) mg/dL Creatinine (0.5-1.4) mg/dL Estim Creat Clear Calc Estimated GFR Random Glucose (60-115) mg/dL Calcium (8.4-10.2) mg/dL Magnesium (1.6-2.6) mg/dL Total Bilirubin (0.0-1.0) mg/dL Direct Bilirubin (0.0-0.5) mg/dL AST (5-31) U/L ALT (0-31) U/L Alkaline Phosphatase (39-117) U/L Troponin I High Sens < 2.7 (<3.5-17.0) ng/L Total Protein (6.5-8.0) g/dL Albumin (3.5-5.0) g/dL Beta HCG, Quant < 2 mIU/mL 12/18/22 12/18/22 Range/Units 10:52 10:52 WBC (4.8-10.8) X10*3/uL RBC (4.20-5.50) X10*6/uL Hgb (12.0-16.0) g/dl Hct (37.0-47.0) % MCV (80.0-98.0) fL MCH (27.0-33.0) pg MCHC (31.0-35.0) g/dl RDW (11.0-16.0) % Plt Count (160-400) X10*3/uL MPV (9.4-12.3) fL Immature Gran % (Auto) (0.0-0.4) % Neut % (Auto) (45-73) % Lymph % (Auto) (20-40) % Lander % (Auto) (2-11) % Eos % (Auto) (0-4) % Baso % (Auto) (0-2) % Lymph # (Auto) (1.2-4.9) X10*3/uL Lander # (Auto) (0.1-1.2) X10*3/uL Eos # (Auto) (0.0-0.4) X10*3/uL Baso # (Auto) (0.0-0.2) X10*3/uL Abs Immat Gran (auto) (0.00-0.03) X10*3/uL Absolute Neuts (auto) (2.0-8.3) x10*3/uL Absolute Nucleated RBC (0.0-0.012) X10*3/uL Nucleated RBC % (auto) (0.0-0.2) /100WBC PT 12.7 (10.0-13.1) SEC INR 1.1 (0.9-1.1) D-Dimer High Sensitivty < 150 NG/ML Sodium 144 (135-145) mmol/L Potassium 3.5 (3.3-5.1) mmol/L Chloride 109 H (96-108) mmol/L Carbon Dioxide 25 (22-29) mmol/L Anion Gap 14 (12-20) BUN 13 (9-16) mg/dL Creatinine 0.73 (0.5-1.4) mg/dL Estim Creat Clear Calc 109.1 Estimated GFR > 60 Random Glucose 82 (60-115) mg/dL Calcium 9.3 (8.4-10.2) mg/dL Magnesium 1.9 (1.6-2.6) mg/dL Total Bilirubin 0.7 (0.0-1.0) mg/dL Direct Bilirubin 0.2 (0.0-0.5) mg/dL AST 21 (5-31) U/L ALT 11 (0-31) U/L Alkaline Phosphatase 57 (39-117) U/L Troponin I High Sens (<3.5-17.0) ng/L Total Protein 6.9 (6.5-8.0) g/dL Albumin 4.3 (3.5-5.0) g/dL Beta HCG, Quant mIU/mL Independent Interpretation I performed an independent interpretation of an: EKG Interpretation: I independently reviewed the EKG which shows NSR with rate 62, normal pr, normal qrs, dianna qt Independent Historian Clinical information obtained from an independent historian. History obtained fr om or confirmed by: EMS Discharge Plan Discharge Clinical Impression: Contusion of rib on left side Patient Disposition: Left Against Medical Advice Instructions: Against Medical Advice (ED), Rib Contusion (ED) Additional Instructions: We do not have the results of your CT scan. You may have rib fractures or a bruise on your lung which will be seen on CT scan. The recommendation would be for you to wait for your results but you chose to leave. Heat or ice to the area Gentle stretching Follow-up with your PCP for continued symptoms Prescriptions: New lidocaine [Lidoderm] 5 % adhesive patch,medicated 1 patch topical DAILY Qty: 15 0RF Rx Instructions: leave on most painful area for up to 12 hrs cyclobenzaprine 10 mg tablet 10 mg PO TID PRN (Reason: muscle spasm) Qty: 15 0RF ibuprofen 600 mg tablet 600 mg PO Q6H PRN (Reason: pain) Qty: 30 0RF No Action hydroxyzine HCl 25 mg tablet 25 mg PO Q8H PRN (Reason: anxiety) Qty: 30 0RF oxycodone-acetaminophen [Percocet] 5-325 mg tablet 1 tab PO Q4-6H PRN (Reason: pain) Qty: 30 0RF Rx Instructions: Partial Fill upon patient request. docusate sodium [Colace] 100 mg capsule 100 mg PO BID Qty: 60 2RF ibuprofen 600 mg tablet 600 mg PO Q6H PRN (Reason: pain) Qty: 30 0RF ibuprofen 600 mg tablet 600 mg PO Q6H PRN (Reason: pain) Qty: 20 0RF cyclobenzaprine 5 mg tablet 5 mg PO TID PRN (Reason: muscle spasm) Qty: 10 0RF Referrals: Physician,Unknown J [Primary Care Provider] - 1 week Stand Alone Forms: Against Medical Advice Interventions: ED Discharge Assessment Last Done: 12/18/22 15:24 Discharge Date/Time: 12/18/22 15:25
[2022-12-18] MEDS: Ketorolac Tromethamine 30 MG/ML VIAL IVPUSH (10:55)
[2022-12-18 11:01] LABS: MANUAL DIFF FLAG NO
[2022-12-18 11:03] LABS: Basophils Absolute Auto 0.1 X10*3/uL (0.0-0.2); Basophils Percent Auto 0.8 % (0-2); Eosinophils Absolute Auto 0.2 X10*3/uL (0.0-0.4); Eosinophils Percent Auto 2.1 % (0-4); Hematocrit 37.1 % (37.0-47.0); Hemoglobin 12.5 g/dl (12.0-16.0); Imm Gran Abs Auto 0.02 X10*3/uL (0.00-0.03); Imm Gran Pct Auto 0.2 % (0.0-0.4); Lymphocytes Absolute Auto 2.6 X10*3/uL (1.2-4.9); Lymphocytes Percent Auto 26.1 % (20-40); Mean Corpuscular HGB Conc 33.7 g/dl (31.0-35.0); Mean Corpuscular Hemoglobin 28.9 pg (27.0-33.0); Mean Corpuscular Volume 85.9 fL (80.0-98.0); Mean Platelet Volume 9.7 fL (9.4-12.3); Monocytes Absolute Auto 0.6 X10*3/uL (0.1-1.2); Monocytes Percent Auto 6.2 % (2-11); Neutrophils Absolute Auto 6.4 x10*3/uL (2.0-8.3); Neutrophils Percent Auto 64.6 % (45-73); Platelet Count 284 X10*3/uL (160-400); Red Blood Count 4.32 X10*6/uL (4.20-5.50); Red Cell Distribution Width 12.8 % (11.0-16.0); White Blood Count 9.9 X10*3/uL (4.8-10.8)
[2022-12-18 11:09] LABS: INTERNATIONAL NORM RATIO 1.1 (0.9-1.1); Prothrombin Time 12.7 SEC (10.0-13.1)
[2022-12-18 11:34] LABS: Alanine Aminotransferase 11 U/L (0-31); Albumin Level 4.3 g/dL (3.5-5.0); Alkaline Phosphatase 57 U/L (39-117); Anion Gap 14 (12-20); Aspartate Amino Transferase 21 U/L (5-31); Bilirubin Direct 0.2 mg/dL (0.0-0.5); Bilirubin Total 0.7 mg/dL (0.0-1.0); Blood Urea Nitrogen 13 mg/dL (9-16); Calcium 9.3 mg/dL (8.4-10.2); Carbon Dioxide 25 mmol/L (22-29); Chloride 109 mmol/L (96-108); Creatinine Clr Calc Pharmacy 109.1; Estimated Glomerular Filt Rate > 60; Glucose Random 82 mg/dL (60-115); Magnesium 1.9 mg/dL (1.6-2.6); Potassium 3.5 mmol/L (3.3-5.1); Sodium 144 mmol/L (135-145); Total Protein 6.9 g/dL (6.5-8.0)
[2022-12-18 11:44] LABS: HCG Quantitative < 2 mIU/mL; Troponin-I High Sensitivity < 2.7 ng/L (<3.5-17.0)
[2022-12-18 11:57] VITALS: BP 123/61; PULSE 61
[2022-12-18 11:58] VITALS: BP 115/68; BP 116/79; PULSE 63; PULSE 72
[2022-12-18] MEDS: oxyCODONE HCl Immed Release 5 MG TABLET PO (12:03)
[2022-12-18] MEDS: Acetaminophen 325 MG TABLET 975 MG PO (12:04)
[2022-12-18 12:29] LABS: D Dimer High Sensitivity < 150 NG/ML
== END 2022-12-18 15:25 | disposition left against medical advice (07) ==
PROVIDERS: Nurse Practitioner Family; Emergency Provider Student in an Organized Health Care Education/Training Program
DX: S20.212A Contusion of left front wall of thorax, initial encounter (principal); W50.0XXA Accidental hit or strike by another person, initial encounter; R06.02 Shortness of breath; F17.210 Nicotine dependence, cigarettes, uncomplicated; F12.90 Cannabis use, unspecified, uncomplicated; Y93.72 Activity, wrestling; Y92.039 Unspecified place in apartment as the place of occurrence of the external cause; Y99.9 Unspecified external cause status
CPT/HCPCS: 36415; 71250; 80048; 80076; 83735; 84484; 84702; 85025; 85379; 85610; 93005; 96374; 99284; J1885

== ENCOUNTER 2022-12-20 12:14 | Emergency (ER) | payer MEDICAID, SELFPAY ==
[2022-12-20 12:28] VITALS: BP 141/88; PULSE 74; RESP 18; TEMP 36.1; O2SAT 100; BMI 29.2
--- NOTE | 2022-12-20 12:31 | ED.GENADULT ---
HPI - General Adult General Chief complaint: General Medical Stated complaint: l side rib pain Time Seen by Provider: 12/20/22 12:31 Source: patient, RN notes reviewed and old records reviewed Mode of arrival: ambulatory Limitations: no limitations History of Present Illness HPI narrative: 32-year-old female presents for evaluation of left-sided rib pain. Patient was seen here twice that we can. She reports that she fell on her sister's foot She had x-rays and a CT scan of chest none of which showed any evidence of traumatic injury including rib fractures or pneumothorax She continues to have pain despite pain treated with lidocaine patch is, cyclobenzaprine, ibuprofen She reports pain with deep breathing and the pain is keeping her up at night Pain is 9/10, sharp, stabbing and worse with movement Related Data Previous Rx's Medication Instructions Recorded hydroxyzine HCl 25 mg tablet 25 mg PO Q8H PRN anxiety #30 tabs 03/28/22 cyclobenzaprine 5 mg tablet 5 mg PO TID PRN muscle spasm #10 06/24/22 tabs ibuprofen 600 mg tablet 600 mg PO Q6H PRN pain #20 tabs 06/24/22 docusate sodium 100 mg capsule 100 mg PO BID #60 caps 07/12/22 (Colace) ibuprofen 600 mg tablet 600 mg PO Q6H PRN pain #30 tabs 07/12/22 oxycodone-acetaminophen 5 mg-325 1 tab PO Q4-6H PRN pain #30 tabs 07/12/22 mg tablet (Percocet) cyclobenzaprine 10 mg tablet 10 mg PO TID PRN muscle spasm #15 12/18/22 tabs ibuprofen 600 mg tablet 600 mg PO Q6H PRN pain #30 tabs 12/18/22 lidocaine 5 % topical patch 1 patch topical DAILY #15 ea 12/18/22 (Lidoderm) tramadol 50 mg tablet 50 mg PO Q6H PRN pain #12 tabs 12/20/22 Allergies Allergy/AdvReac Type Severity Reaction Status Date / Time No Known Allergies Allergy Verified 12/20/22 12:31 Review of Systems Cardiovascular: Cardiovascular: Reports dyspnea Comments: Left chest wall pain Respiratory: Respiratory: Reports dyspnea PMFSH Past Medical History Medical History Anxiety Asthma External hemorrhoids with complication History of COVID-19 Surgical History Hx of section Hx of dilation and curettage Tubal ligation status Social History Social History Alcohol intake: current Alcohol intake frequency: holidays/special occasions only Alcohol type: hard liquor Patient Tobacco Use Status: Current everyday Tobacco user Tobacco use type: Cigarette Cigarettes Per Day: 6 Substance Use Type: Marijuana Physical Exam ED Vital Signs: Vital Signs - 24 hr 12/20/22 12:28 Temperature 96.9 F Pulse Rate 74 Respiratory Rate 18 Blood Pressure 141/88 H Pulse Oximetry 100 Oxygen Delivery Method Room Air BMI result Body Mass Index 29.2 Const General: healthy appearing, comfortable, no acute distress, alert and awake Nutritional Appearance: well nourished Orientation/consciousness: patient oriented x3 HENMT Head: Yes normocephalic and Yes atraumatic Eyes Eyelids: Yes eyelids normal Conjunctivae: conjunctivae normal Sclerae: sclerae normal Corneas: corneas normal Pupils: Equal, round and reactive pupils present EOM: EOMs intact bilaterally Neck Neck: Yes full ROM Chest Other: Tenderness to the left lateral and anterior chest wall without crepitus or deformity. Equal chest rise bilaterally Chest palpation & inspection: normal inspection of the chest Resp Effort & Inspection: normal respiratory effort, able to speak in complete sentences, no audible wheezes and not labored Auscultation: clear to auscultation bilaterally Cardio Rate: regular rate Rhythm: regular rhythm Skin General skin exam: no rashes or lesions noted and elasticity normal Neuro General: patient oriented x3 Cranial nerves: Yes Equal, round and reactive pupils present and Yes Bilaterally intact EOM present Cognition (Neuro): normal cognition Extrem Other: Moving all extremities well without any obvious deformities Medical Decision Making Medical Decision Making MDM Narrative: I reviewed the patient's recent workup. She had a CT scan chest that did not show any evidence of rib fracture or pneumothorax. There has been no additional injury clinic patient is well-appearing with stable vital signs. I do not see any occasion for further emergent workup. We will discharge the patient with a short course of tramadol in addition to her current pain regimen. Differential Diagnosis Rib contusion Chest wall pain Pneumothorax Rib fracture Discharge Plan Discharge Clinical Impression: Rib pain on left side Patient Disposition: Home, Self-Care Instructions: Rib Contusion (ED) Additional Instructions: Continue take the medications that were previously prescribed. You may also use tramadol up to 4 times daily as needed for severe or breakthrough pain. This may make you sleepy, do not drink alcohol or drive after taking it Prescriptions: New tramadol 50 mg tablet 50 mg PO Q6H PRN (Reason: pain) Qty: 12 0RF No Action hydroxyzine HCl 25 mg tablet 25 mg PO Q8H PRN (Reason: anxiety) Qty: 30 0RF oxycodone-acetaminophen [Percocet] 5-325 mg tablet 1 tab PO Q4-6H PRN (Reason: pain) Qty: 30 0RF Rx Instructions: Partial Fill upon patient request. docusate sodium [Colace] 100 mg capsule 100 mg PO BID Qty: 60 2RF ibuprofen 600 mg tablet 600 mg PO Q6H PRN (Reason: pain) Qty: 30 0RF ibuprofen 600 mg tablet 600 mg PO Q6H PRN (Reason: pain) Qty: 20 0RF cyclobenzaprine 5 mg tablet 5 mg PO TID PRN (Reason: muscle spasm) Qty: 10 0RF lidocaine [Lidoderm] 5 % adhesive patch,medicated 1 patch topical DAILY Qty: 15 0RF Rx Instructions: leave on most painful area for up to 12 hrs cyclobenzaprine 10 mg tablet 10 mg PO TID PRN (Reason: muscle spasm) Qty: 15 0RF ibuprofen 600 mg tablet 600 mg PO Q6H PRN (Reason: pain) Qty: 30 0RF Stand Alone Forms: Work/School Release
== END 2022-12-20 12:36 | disposition home or self-care (01) ==
PROVIDERS: Emergency Provider Emergency Medicine
DX: R07.81 Pleurodynia (principal); F17.210 Nicotine dependence, cigarettes, uncomplicated; Z71.6 Tobacco abuse counseling; Z79.899 Other long term (current) drug therapy
CPT/HCPCS: 99282; 99283

== ENCOUNTER 2022-12-26 12:14 | Emergency (ER) | payer MEDICAID, SELFPAY ==
--- NOTE | ~2022-12-26 | XR_ITS ---
EXAMINATION: XR CHEST CLINICAL INFORMATION: Left lower chest pain COMPARISON: 12/17/2022. TECHNIQUE: 2 views of the chest were obtained. FINDINGS: No significant abnormality is noted involving the heart, lungs, mediastinum, bony thorax or soft tissues. There appears to be slight blunting of left posterior sulcus which could reflect a minimal effusion or pleural reaction. XR/XR chest 2V IMPRESSION: Slight blunting of left posterior sulcus suggestive of a minimal effusion or pleural reaction. Remainder of examination unremarkable.
[2022-12-26 13:02] VITALS: BP 128/80; PULSE 69; RESP 17; TEMP 36.6; O2SAT 100; BMI 29.2
--- NOTE | 2022-12-26 13:02 | ED.GENADULT ---
HPI - General Adult General Chief complaint: General Medical Stated complaint: L rib pain Time Seen by Provider: 12/26/22 14:17 Source: patient Mode of arrival: ambulatory Limitations: no limitations History of Present Illness HPI narrative: Patient is a 32 year old assigned female at with no reported medical history presenting to the emergency department today with persistent left rib pain. Patient states that she got injured on 12/17/2022 and her left ribs still hurt. Patient denies any dizziness, lightheadedness, abdominal pain, nausea, vomiting, fever, chills, blurry vision, double vision, loss of vision, chest pain, difficulty breathing, shortness of breath, back pain, night sweats, pain with urination, increased urinary frequency, increased urinary urgency, blood in her urine or stool, syncope or a near syncopal episode, bowel incontinence, bladder incontinence, bowel retention, bladder retention, or any other complaints at this time. Onset (ago): day(s) (9) Severity: mild Severity scale (1-10): 2 Quality: aching and dull Pain Consistency: constant Relieving factors: none Exacerbating factors: movement Associated symptoms: denies other symptoms Treatments prior to arrival: none Related Data Previous Rx's Medication Instructions Recorded hydroxyzine HCl 25 mg tablet 25 mg PO Q8H PRN anxiety #30 tabs 03/28/22 cyclobenzaprine 5 mg tablet 5 mg PO TID PRN muscle spasm #10 06/24/22 tabs ibuprofen 600 mg tablet 600 mg PO Q6H PRN pain #20 tabs 06/24/22 docusate sodium 100 mg capsule 100 mg PO BID #60 caps 07/12/22 (Colace) ibuprofen 600 mg tablet 600 mg PO Q6H PRN pain #30 tabs 07/12/22 oxycodone-acetaminophen 5 mg-325 1 tab PO Q4-6H PRN pain #30 tabs 07/12/22 mg tablet (Percocet) cyclobenzaprine 10 mg tablet 10 mg PO TID PRN muscle spasm #15 12/18/22 tabs ibuprofen 600 mg tablet 600 mg PO Q6H PRN pain #30 tabs 12/18/22 lidocaine 5 % topical patch 1 patch topical DAILY #15 ea 12/18/22 (Lidoderm) tramadol 50 mg tablet 50 mg PO Q6H PRN pain #12 tabs 12/20/22 Allergies Allergy/AdvReac Type Severity Reaction Status Date / Time No Known Allergies Allergy Verified 12/26/22 13:02 Review of Systems Constitutional: Constitutional: Reports no additional constitutional complaints, Denies chills, Denies fever(s) and Denies night sweats Eyes: Eyes: Reports no additional eye complaints, Denies blurry vision, Denies change in vision, Denies diplopia, Denies eye discharge, Denies loss of vision and Denies eye pain ENT: Denies dizziness Cardiovascular: Cardiovascular: Reports no additional cardiovascular complaints, Denies chest pain, Denies lightheadedness, Denies Loss of Consciousness and Denies dyspnea Respiratory: Respiratory: Reports no additional respiratory complaints and Denies dyspnea Gastrointestinal: Gastrointestinal: Reports no additional gastrointestinal complaints, Denies abdominal pain, Denies melena, Denies hematochezia, Denies change in bowel habits and Denies change in stool character Genitourinary: Genitourinary: Denies hematuria, Denies urinary frequency, Denies dysuria, Denies urinary incontinence, Denies urinary hesitancy and Denies urinary urgency Musculoskeletal: Musculoskeletal: Reports no additional musculoskeletal complaints, Denies numbness and Denies tingling Comments: left rib pain Neurologic: Denies dizziness, Denies loss of vision, Denies numbness and Denies tingling Psychiatric: Psychiatric: Reports no additional psychiatric complaints Endocrine: Endocrine: Reports no additional endocrine complaints Hematologic/Lymphatic: Hematologic/Lymphatic: Reports no additional hematologic/lymphatic complaints Allergic/Immunologic: Allergic/Immunologic: Reports no additional allergic/immunologic complaints PMFSH Past Medical History Attestation statement: The following information was validated with the patient. Source: old records reviewed and nursing notes reviewed Medical History Anxiety Asthma External hemorrhoids with complication History of COVID-19 Surgical History Hx of section Hx of dilation and curettage Tubal ligation status Social History Social History Alcohol intake: current Alcohol intake frequency: holidays/special occasions only Alcohol type: hard liquor Patient Tobacco Use Status: Current everyday Tobacco user Tobacco use type: Cigarette Cigarettes Per Day: 6 Substance Use Type: Marijuana Advance Directives: No Advance Directives Information Provided: No Physical Exam ED Vital Signs: Vital Signs - 24 hr 12/26/22 13:02 Temperature 98 F Pulse Rate 69 Respiratory Rate 17 Blood Pressure 128/80 Pulse Oximetry 100 Oxygen Delivery Method Room Air BMI result Body Mass Index 29.2 Const General: cooperative, no acute distress, alert and awake Nutritional Appearance: well nourished Orientation/consciousness: patient oriented x3 Limitations: no limitations HENMT Head: Yes normal to inspection and Yes atraumatic Ears: hearing grossly normal bilaterally and external ears normal General nose exam: Normal external nose present, no nasal discharge noted and no epistaxis Face and sinus: Yes normal facial exam, No abrasion and No laceration Mouth: Normal oral and palatal mucosa present, no drooling and no muffled voice Eyes General: appearance normal, both eyes and all related structures Periorbital: periorbital findings normal Eyelids: Yes eyelids normal Conjunctivae: conjunctivae normal Pupils: Equal, round and reactive pupils present EOM: EOMs intact bilaterally Neck Neck: Yes normal visual inspection, Yes full ROM and Yes no lymphadenopathy Chest Chest palpation & inspection: normal inspection of the chest Resp Effort & Inspection: normal respiratory effort and able to speak in complete sentences Auscultation: clear to auscultation bilaterally Cardio Rate: regular rate Rhythm: regular rhythm GI Inspection: Yes normal to inspection Palpation (GI): Soft to palpation, not firm, nontender and no guarding Neuro General: patient oriented x3 and moves all extremities Cranial nerves: Yes Equal, round and reactive pupils present Cognition (Neuro): normal cognition Motor exam (neuro): 5/5 motor strength present throughout Sensory Exam: Normal double simultaneous stimulation for sensation Coordination: shufba-[id number]-ahte test normal Extrem General: Yes normal to inspection, Yes full ROM and Yes capillary refill normal Psych Appearance: grossly normal Mental Status: mental status grossly normal Affect: normal affect Attitude: cooperative Thought process: Normal thought process present Thought content: Normal thought content present Insight: Good insight present (Psych) Course Course Course Narrative: RME - 32 yo female presents to the ER for ongoing left lower rib pain s/p injury on 12/17. Had negative CT chest here on 12/18. Ongoing pain, difficulty taking a deep breath, SOB, unable to cough. [place] a pop today. Plan: repeat CXR, r/o PNA due to splinting Medications Administered Discontinued Medications Generic Name Dose Route Start Last Admin Trade Name Ramez PRN Reason Stop Dose Admin Ketorolac Tromethamine 15 mg 12/26/22 14:48 12/26/22 15:06 Ketorolac Tromethamine 15 Mg/Ml Vial IM 12/26/22 14:49 15 mg ONCE ONE Administration Medical Decision Making Medical Decision Making MDM Narrative: Patient is a 32 year old assigned female at with no reported medical history presenting to the emergency department today with left rib pain. Patient's physical exam was unremarkable. Patient's chest x-ray showed no acute kita process. I explained my physical exam findings as well as all test results to the patient. I answered all questions asked by the patient. I stressed the importance of the patient taking his medication as prescribed. I stressed the importance of the patient following up with his primary care provider and a pain specialist. I stressed the importance of the patient returning to the emergency department immediately if his symptoms were to worsen or if he were to develop any dizziness, shortness of breath, difficulty breathing, chest pain, blurry vision, loss of vision, nausea, vomiting, abdominal pain, fever, chills, back pain, or any other complaints. Patient verbalized agreement and understanding with this treatment plan and discharge. Differential Diagnosis Differential Diagnoses: The differential diagnosis associated with the presentation includes left rib pain costochondritis Independent Interpretation I performed an independent interpretation of an: Plain X-Ray Interpretation: My interpretation is in agreement with the radiologist's impression of this imaging study. EXAMINATION: XR CHEST CLINICAL INFORMATION: Left lower chest pain COMPARISON: 12/17/2022. TECHNIQUE: 2 views of the chest were obtained. FINDINGS: No significant abnormality is noted involving the heart, lungs, mediastinum, bony thorax or soft tissues. There appears to be slight blunting of left posterior sulcus which could reflect a minimal effusion or pleural reaction. XR/XR chest 2V IMPRESSION: Slight blunting of left posterior sulcus suggestive of a minimal effusion or pleural reaction. ? Remainder of examination unremarkable. Dictated By: eDx Antonio Signed By: Electronically signed by Dex?Paco 12/26/22 1447 Discharge Plan Discharge Clinical Impression: Pain in rib Patient Disposition: Home, Self-Care Instructions: Costochondritis (ED) Additional Instructions: Follow up with your primary care provider and a pain specialist. Return to the emergency department immediately if your symptoms worsen or if you develop any dizziness, shortness of breath, difficulty breathing, chest pain, blurry vision, loss of vision, nausea, vomiting, abdominal pain, fever, chills, back pain, or any other complaints. Prescriptions: No Action hydroxyzine HCl 25 mg tablet 25 mg PO Q8H PRN (Reason: anxiety) Qty: 30 0RF oxycodone-acetaminophen [Percocet] 5-325 mg tablet 1 tab PO Q4-6H PRN (Reason: pain) Qty: 30 0RF Rx Instructions: Partial Fill upon patient request. docusate sodium [Colace] 100 mg capsule 100 mg PO BID Qty: 60 2RF ibuprofen 600 mg tablet 600 mg PO Q6H PRN (Reason: pain) Qty: 30 0RF ibuprofen 600 mg tablet 600 mg PO Q6H PRN (Reason: pain) Qty: 20 0RF cyclobenzaprine 5 mg tablet 5 mg PO TID PRN (Reason: muscle spasm) Qty: 10 0RF lidocaine [Lidoderm] 5 % adhesive patch,medicated 1 patch topical DAILY Qty: 15 0RF Rx Instructions: leave on most painful area for up to 12 hrs cyclobenzaprine 10 mg tablet 10 mg PO TID PRN (Reason: muscle spasm) Qty: 15 0RF ibuprofen 600 mg tablet 600 mg PO Q6H PRN (Reason: pain) Qty: 30 0RF tramadol 50 mg tablet 50 mg PO Q6H PRN (Reason: pain) Qty: 12 0RF Referrals: [facility] [Provider Group] (Call to establish and follow up with a pain specialist. ) [facility] [Primary Care Provider] - Stand Alone Forms: Work/School Release Interventions: ED Discharge Assessment Last Done: 12/26/22 15:12 Discharge Date/Time: 12/26/22 15:13 Print Language: [place] Citizen
[2022-12-26] MEDS: Ketorolac Tromethamine 15 MG/ML VIAL IM (15:06)
== END 2022-12-26 15:13 | disposition home or self-care (01) ==
PROVIDERS: Emergency Provider Emergency Medicine
DX: R07.81 Pleurodynia (principal)
CPT/HCPCS: 71046; 96372; 99283; 99284; J1885

== ENCOUNTER → 2022-12-30 09:05 | Outpatient (BNVA) | payer MEDICAID, SELFPAY | PROVIDERS: PCP Registered Nurse; Visit Provider Internal Medicine | DX: G58.0 Intercostal neuropathy (principal); R06.02 Shortness of breath; M54.50 Low back pain, unspecified; M54.2 Cervicalgia; G89.29 Other chronic pain; F17.210 Nicotine dependence, cigarettes, uncomplicated | CPT/HCPCS: 99202 ==

== ENCOUNTER 2023-01-23 11:29 | Outpatient (AMB) | payer MEDICAID, SELFPAY ==
--- NOTE | 2023-01-23 11:31 | A.OFFVIS_ITS ---
Intake Vital Signs 01/23/23 11:32 Height 5 ft 3 in Weight 164 lb BMI 29.0 BP 109/67 Blood Pressure Location Lt brachial Position Sitting Respiration 14 Pulse 86 Pulse Source Pulse Oximeter Pulse Oximetry (%) 95 Oxygen Delivery Method Room Air Intake Visit Reasons: Left Dx T8-T9-T10 intercostal NB Allergies No Known Allergies Allergy (Verified 01/23/23 11:33) Medication List - Last Reconciled 01/23/23 by Yelena Hoover LPN cyclobenzaprine 10 mg PO TID PRN gabapentin 300 mg PO BEDTIME ibuprofen 600 mg PO Q6H PRN HPI Left Dx T8-T9-T10 intercostal NB HPI Details 32-year-old female presenting today for a left diagnostic T6 intercoastal nerve block. Patient presents for scheduled procedure. Denies any recent cough, cold, infection, fever or other significant changes in medical history since last office visit. [facility] Medical History (Updated 01/02/23 @ 14:20 by Macario Wolf MD) Anxiety Asthma Bipolar affective disorder, current episode depressed Chronic low back pain Chronic neck and back pain External hemorrhoids with complication Glossodynia History of COVID-19 Obesity Seasonal allergic rhinitis Well controlled intermittent asthma Surgical History Hx of section Hx of dilation and curettage Tubal ligation status Social History Alcohol intake: current Alcohol intake frequency: holidays/special occasions only Alcohol type: hard liquor Patient Tobacco Use Status: Current everyday Tobacco user Tobacco use type: Cigarette Cigarettes Per Day: 6 Substance Use Type: Marijuana Female Reproductive History Menstrual Age of Menarche: 12 Review of Systems Const All systems reviewed & are unremarkable except as noted in HPI and below Physical Exam Vital Signs: Last Vital Signs Pulse 86 01/23/23 11:32 Resp 14 01/23/23 11:32 BP 109/67 01/23/23 11:32 Pulse Ox 95 01/23/23 11:32 Oxygen Delivery Method Room Air 01/23/23 11:32 BMI result Body Mass Index 29.0 General: Appears afebrile. Alert and oriented. Mood and affect appropriate. Follows and participates in conversation appropriately. Respiratory effort is unlabored. Able to transition from sit to stand unassisted. Ambulates with bilaterally normal heel strike and toe off. Office Procedures Nerve Block Details: Left diagnostic T5-T6-T7 intercoastal nerve block, under ultrasound guidance. After obtaining written consent, pre-procedure time-out was completed. The patient was placed in a left lateral position. The relevant levels of the intercostal nerves were physically palpated corresponding to the patient's pain and marked. Using ultrasound, the appropriate landmarks including the rib, intercostal muscles and pleura were identified. The skin was anesthetized with 1% lidocaine. A 21 gauge 80 mm echostim needle was advanced under sonographic guidance in proximity to each of the the intercostal nerves. Aspiration was negative for heme and air. 2 cc of ropivacaine 0.5% was injected around each of the targeted nerves. The needle was removed, skin cleansed and a sterile bandage was applied. The patient tolerated the procedure well and no complications were encountered. Following the procedure the patient's vital signs and respiration were stable. The patient was discharged home in good condition with post-procedural instructions. Time Out: Immediately prior to the procedure, the following was verbally confirmed that there is a signed consent form and that the correct patient, planned procedure, site and side are consistent with documentation and that necessary equipment and/or blood products are available prior to the start of the case. Complications: none EBL: <1 cc Procedure code (CPT) selection complete Results Reviewed Results Reviewed: No imaging is available for review. 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 She did not have significant relief after the T7 level initially, so we did another round at T5 and T6 levels, and the patient reported 100% diagnostic pain relief. Patient tolerated procedure well and was discharged home in stable condition with discharge instructions. All questions were answered. We will follow-up in two weeks via telephone or in clinic to assess response to therapy. A follow-up appointment was made during today's visit. Scribed for Dr. Wolf by [place] Kimbrough, medical instrument cable fabricator, on 01/23/2023. I, Dr. Wolf, have personally reviewed and agree with the information entered by the scribe. 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
[2023-01-23 11:32] VITALS: BP 109/67; PULSE 86; RESP 14; O2SAT 95; BMI 29.0
== END 2023-01-23 12:45 | disposition home or self-care (01) ==
PROVIDERS: PCP Registered Nurse; Visit Provider Internal Medicine
DX: G58.8 Other specified mononeuropathies (principal)
CPT/HCPCS: 64420; 64421; 76942

== ENCOUNTER → 2023-01-23 11:29 | Outpatient (BNVA) | payer MEDICAID, SELFPAY | PROVIDERS: PCP Registered Nurse; Visit Provider Internal Medicine | DX: G58.8 Other specified mononeuropathies (principal); G89.4 Chronic pain syndrome; M54.50 Low back pain, unspecified; M54.2 Cervicalgia | CPT/HCPCS: 64420; 64421 ==

== ENCOUNTER 2023-03-02 11:46 | Outpatient (REF) | payer MEDICAID, SELFPAY ==
[2023-03-02 13:00] LABS: MANUAL DIFF FLAG NO
[2023-03-02 13:09] LABS: Basophils Absolute Auto 0.1 X10*3/uL (0.0-0.2); Basophils Percent Auto 0.9 % (0-2); Eosinophils Absolute Auto 0.1 X10*3/uL (0.0-0.4); Eosinophils Percent Auto 1.4 % (0-4); Hemoglobin 12.3 g/dl (12.0-16.0); Imm Gran Abs Auto 0.03 X10*3/uL (0.00-0.03); Imm Gran Pct Auto 0.3 % (0.0-0.4); Lymphocytes Absolute Auto 2.3 X10*3/uL (1.2-4.9); Mean Corpuscular HGB Conc 33.2 g/dl (31.0-35.0); Mean Corpuscular Hemoglobin 29.1 pg (27.0-33.0); Mean Corpuscular Volume 87.7 fL (80.0-98.0); Monocytes Absolute Auto 0.5 X10*3/uL (0.1-1.2); Monocytes Percent Auto 5.7 % (2-11); Neutrophils Percent Auto 66.7 % (45-73); Platelet Count 273 X10*3/uL (160-400); Red Blood Count 4.22 X10*6/uL (4.20-5.50); Red Cell Distribution Width 12.9 % (11.0-16.0)
[2023-03-02 13:18] LABS: Estimated Average Glucose 88 mg/dL; Hemoglobin A1c % 4.7 % (<6.0)
[2023-03-02 13:27] LABS: Alanine Aminotransferase 9 U/L (0-31); Albumin Level 4.4 g/dL (3.5-5.0); Alkaline Phosphatase 59 U/L (39-117); Anion Gap 10 (12-20); Aspartate Amino Transferase 17 U/L (5-31); Bilirubin Total 0.4 mg/dL (0.0-1.0); Blood Urea Nitrogen 8 mg/dL (9-16); Calcium 9.4 mg/dL (8.4-10.2); Carbon Dioxide 29 mmol/L (22-29); Chloride 106 mmol/L (96-108); Cholesterol 156 mg/dL (<200); Estimated Glomerular Filt Rate > 60; Glucose Random 90 mg/dL (60-115); HDL Cholesterol 56 mg/dL (>40); LDL Cholesterol Calculated 84 mg/dL (<100); Potassium 3.7 mmol/L (3.3-5.1); Sodium 141 mmol/L (135-145); Triglycerides 82 mg/dL (<150)
[2023-03-02 13:42] LABS: TSH reflex Free T4 0.64 uIU/mL (0.32-4.0); Vitamin D 25-OH Total 22.4 ng/mL (>30)
[2023-03-02 13:56] LABS: Folate 11.2 ng/mL (> or = 4.0); Vitamin B12 490 pg/mL (200-900)
[2023-03-02 15:14] LABS: CT PCR NOT DETECTED (Not Detect.); NG PCR NOT DETECTED (Not Detect.)
[2023-03-03 08:05] LABS: HBc Num1 0.09 S/CO (0.00-0.79); HBsAGNum1 0.28 S/CO (0.00-0.99); HIV AB/AG Nonreactive (Nonreactive); HIV Num 1 0.07 S/CO (0.00-0.99); Hepatitis B Core Antibody Nonreactive (Nonreactive); Hepatitis B Surface Antigen Negative (Negative); ~Hepatitis B Surface Antibody REACTIVE (Nonreactive)
[2023-03-03 08:12] LABS: ~HepC Num1 0.14 S/CO (0.00-0.79); ~Hepatitis C Antibody Nonreactive (Nonreactive)
[2023-03-03 08:32] LABS: Syphilis Screen Nonreactive (Nonreactive)
[2023-03-05 07:44] LABS: TS Negative Control Passed; TS Panel A 1; TS Panel B 0; TS Positive Control Passed; TSpotTB Negative (Negative)
== END 2023-03-02 11:47 | disposition home or self-care (01) ==
LOC: HO.HHCL 11:46
PROVIDERS: Visit Provider Student in an Organized Health Care Education/Training Program
DX: Z00.00 Encounter for general adult medical examination without abnormal findings (principal); Z11.4 Encounter for screening for human immunodeficiency virus [HIV]; Z11.1 Encounter for screening for respiratory tuberculosis; Z11.3 Encounter for screening for infections with a predominantly sexual mode of transmission
CPT/HCPCS: 0353U; 80053; 80061; 82306; 82607; 82746; 83036; 84443; 85025; 86481; 86704; 86706; 86780; 86803; 87340; 87389

== ENCOUNTER 2023-10-02 12:17 | Outpatient (REF) | payer MEDICAID, SELFPAY ==
[2023-10-02 13:31] LABS: Hematocrit 40.1 % (37.0-47.0); Hemoglobin 13.7 g/dl (12.0-16.0); Mean Corpuscular HGB Conc 34.2 g/dl (31.0-35.0); Mean Corpuscular Hemoglobin 29.4 pg (27.0-33.0); Mean Corpuscular Volume 86.1 fL (80.0-98.0); Mean Platelet Volume 10.3 fL (9.4-12.3); Platelet Count 357 X10*3/uL (160-400); Red Blood Count 4.66 X10*6/uL (4.20-5.50); Red Cell Distribution Width 12.6 % (11.0-16.0); White Blood Count 8.2 X10*3/uL (4.8-10.8)
[2023-10-02 14:14] LABS: Alanine Aminotransferase 11 U/L (0-31); Albumin Level 4.7 g/dL (3.5-5.0); Alkaline Phosphatase 60 U/L (39-117); Anion Gap 13 (12-20); Aspartate Amino Transferase 18 U/L (5-31); Bilirubin Total 0.5 mg/dL (0.0-1.0); Blood Urea Nitrogen 10 mg/dL (9-16); C Reactive Protein 0.16 mg/dL (< or = 0.50); Calcium 9.6 mg/dL (8.4-10.2); Carbon Dioxide 24 mmol/L (22-29); Chloride 108 mmol/L (96-108); Erythrocyte Sedimentation Rate 3 MM/HR (0-20); Estimated Glomerular Filt Rate > 60; Glucose Random 133 mg/dL (60-115); Lactate Dehydrogenase 166 U/L (122-220); Potassium 3.7 mmol/L (3.3-5.1); Sodium 141 mmol/L (135-145); Total Protein 7.9 g/dL (6.5-8.0)
[2023-10-02 15:24] LABS: CT PCR NOT DETECTED (Not Detect.); NG PCR NOT DETECTED (Not Detect.)
[2023-10-03 08:09] LABS: Syphilis Screen Nonreactive (Nonreactive)
[2023-10-03 08:40] LABS: HIV AB/AG Nonreactive (Nonreactive); HIV Num 1 0.05 S/CO (0.00-0.99); Hepatitis B Surface Antigen Negative (Negative); ~HepC Num1 0.24 S/CO (0.00-0.79); ~Hepatitis C Antibody Nonreactive (Nonreactive)
[2023-10-03 21:32] LABS: Prot Elec - Albumin 4.6 g/dL (3.8-4.8); Prot Elec - Alpha1 0.3 g/dL (0.2-0.3); Prot Elec - Alpha2 0.7 g/dL (0.5-0.9); Prot Elec - Beta 1 0.4 g/dL (0.4-0.6); Prot Elec - Beta 2 0.3 g/dL (0.2-0.5); Prot Elec - Gamma 1.1 g/dL (0.8-1.7); Prot Elec - Total Protein 7.4 g/dL (6.1-8.1)
[2023-10-04 13:09] LABS: IgA 165 mg/dL (47-310); IgG 1170 mg/dL (600-1640); IgM 137 mg/dL (50-300)
[2023-10-04 23:13] LABS: TS Negative Control Passed; TS Panel A 0; TS Panel B 0; TS Positive Control Passed; TSpotTB Negative (Negative)
== END 2023-10-02 12:18 | disposition home or self-care (01) ==
LOC: HO.HHCL 12:17
PROVIDERS: Visit Provider Student in an Organized Health Care Education/Training Program
DX: Z11.4 Encounter for screening for human immunodeficiency virus [HIV] (principal); Z11.1 Encounter for screening for respiratory tuberculosis; R61 Generalized hyperhidrosis; R20.0 Anesthesia of skin; R20.2 Paresthesia of skin
CPT/HCPCS: 0353U; 36415; 80053; 82784; 83615; 84165; 84443; 85027; 85652; 86140; 86334; 86481; 86780; 86803; 87340; 87389

== ENCOUNTER 2023-11-07 09:00 | Outpatient (REF) | payer MEDICAID, SELFPAY ==
--- NOTE | 2023-11-07 | EMG_ITS ---
Bilateral median and ulnar motor and sensory studies were performed. Bilateral median and lateral antecubital sensory studies were performed and paraspinal muscles were tested with a needle. IMPRESSION: Mild bilateral ulnar neuropathy across cubital tunnel. There was no evidence of median neuropathy. MD COLUMBA Montenegro/FRANCISCA / [phone]
== END 2023-11-07 09:01 | disposition home or self-care (01) ==
LOC: HO.NEURO 09:00
PROVIDERS: PCP Student in an Organized Health Care Education/Training Program; Visit Provider Student in an Organized Health Care Education/Training Program
DX: R20.0 Anesthesia of skin (principal); R20.2 Paresthesia of skin
CPT/HCPCS: 95886; 95913

== ENCOUNTER 2023-11-21 08:54 | Outpatient (REF) | payer MEDICAID, SELFPAY ==
--- NOTE | 2023-11-21 08:57 | EMG_ITS ---
Bilateral tibial and peroneal motor studies were performed. Bilateral sural, superficial peroneal, and medial and lateral plantar mixed studies were performed. Tibial H reflexes were obtained and paraspinal muscles were tested with a needle. 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 MD COLUMBA Montenegro/FRANCISCA / [phone]
== END 2023-11-21 08:55 | disposition home or self-care (01) ==
LOC: HO.NEURO 08:54
PROVIDERS: PCP Student in an Organized Health Care Education/Training Program; Visit Provider Student in an Organized Health Care Education/Training Program
DX: R20.0 Anesthesia of skin (principal); R20.2 Paresthesia of skin
CPT/HCPCS: 95886; 95913

== ENCOUNTER 2023-12-05 12:09 | Outpatient (REF) | payer MEDICAID, SELFPAY ==
[2023-12-05 13:31] LABS: Erythrocyte Sedimentation Rate 8 MM/HR (0-20)
[2023-12-05 13:51] LABS: Anion Gap 12 (12-20); Blood Urea Nitrogen 8 mg/dL (9-16); Calcium 9.4 mg/dL (8.4-10.2); Carbon Dioxide 27 mmol/L (22-29); Chloride 108 mmol/L (96-108); Estimated Glomerular Filt Rate > 60; Glucose Random 76 mg/dL (60-115); Potassium 3.6 mmol/L (3.3-5.1); Sodium 143 mmol/L (135-145)
[2023-12-05 14:09] LABS: T4 Thyroxine 5.8 ug/dL (4.5-12.0); Thyroid Stimulating Hormone 0.57 uIU/mL (0.32-4.0)
[2023-12-05 14:14] LABS: Folate 6.9 ng/mL (> or = 4.0); Vitamin B12 446 pg/mL (200-900)
[2023-12-06 22:14] LABS: Lyme Abs Screen <0.90 index
[2023-12-09 16:33] LABS: Anti Nuclear Antibody Screen POSITIVE (NEGATIVE); Anti Nuclear Antibody Titer 1:40 titer
== END 2023-12-05 12:10 | disposition home or self-care (01) ==
LOC: HO.LAB 12:09
PROVIDERS: PCP Student in an Organized Health Care Education/Training Program; Visit Provider Psychiatry & Neurology Neurology
DX: G62.9 Polyneuropathy, unspecified (principal)
CPT/HCPCS: 36415; 80048; 82607; 82746; 84436; 84443; 85652; 86038; 86039; 86617; 86618

== ENCOUNTER 2024-10-15 11:15 | Outpatient (REF) | payer MEDICAID, SELFPAY ==
[2024-10-15 13:27] LABS: Hematocrit 38.6 % (37.0-47.0); Hemoglobin 12.8 g/dl (12.0-16.0); Mean Corpuscular HGB Conc 33.2 g/dl (31.0-35.0); Mean Corpuscular Hemoglobin 29.4 pg (27.0-33.0); Mean Corpuscular Volume 88.7 fL (80.0-98.0); Mean Platelet Volume 10.1 fL (9.4-12.3); Platelet Count 337 X10*3/uL (160-400); Red Blood Count 4.35 X10*6/uL (4.20-5.50); Red Cell Distribution Width 12.8 % (11.0-16.0); White Blood Count 8.4 X10*3/uL (4.8-10.8)
[2024-10-15 13:39] LABS: Estimated Average Glucose 94 mg/dL; Hemoglobin A1C 104.6683 umol/L; Hemoglobin A1c % 4.9 % (<6.0); Total Hemoglobin (HGBA1C) 3452.4873 umol/L
--- OUTSIDE RECORDS SUMMARY | 2024-10-15 13:55 | XMS_ITS | Clinical Summary ---
Author Organization [facility] Address [address] [place] [address] Care Team Providers Care Engineering Program Analyst Name Role Phone Unavailable Primary Care Provider Unavailabl e Surgical History Surgery Date Site/Laterality Comments SECTION PROCEDURE: HISTORICAL DELIVERY TUBAL LIGATION 10/01/2021 PROCEDURE: HISTORICAL TUBAL LIGATION Medical History Medical History Date Comments Asthma DX:Asthma Bipolar 1 disorder (CMS/HCC V24, CMS/HCC V28) DX:Bipolar 1 disorder (HCC) Anxiety and depression DX:Anxiet y and depression PTSD (post-traumatic stress disorder) DX:PTSD (post-traumatic stress disorder) Family History Medical History Relation Name Comments Asthma Brother 1 Bipolar disorder Brother 1 Asthma Brother 2 Bipolar disorder Brother 2 Asthma Brother 3 Bipolar disorder Brother 3 Diabetes Father Hypertension Father Alzheimer's disease Maternal Grandmother Diabetes Mother Other: heart Mother Prostate cancer Paternal Grandfather Heart failure Paternal Grandmother Asthma Sister 1 Bipolar disorder Sister 1 Asthma Sister 2 Bipolar disorder Sister 2 Asthma Sister 3 Bipolar disorder Sister 3 Breast cancer Neg Hx Cervical cancer Neg Hx Ovarian cancer Neg Hx Uterine cancer Neg Hx Relation Name Status Comments Brother 1 Alive Brother 2 Alive Brother 3 Alive Father Alive Maternal Grandfather Alive Maternal Grandmother Alive Mother Alive Paternal Grandfather Paternal Grandmother Sister 1 Alive Sister 2 Alive Sister 3 Alive Social History Tobacco Use Types Packs/Day Years Used Date Smoking Tobacco: Some Days Smokeless Tobacco: Never Alcohol Use Standard Drinks/Week Comments Yes 0 (1 standard drink = 0.6 oz pur e alcohol) Comments Unknown Sex and Gender Information Value Date Recorded Sex Assigned at Not on file Legal Sex Female 2:25 AM EST Gender Identity Not on file Sexual Orientation Not on file Obstetrics History Last Filed Vital Signs Vital Sign Reading Time Taken Comments Blood Pressure 124/87 11/12/2021 2:05 PM EDT Pulse 69 11/12/2021 2:05 PM EDT Temperature - - Respiratory Rate - - Oxygen Saturation - - Inhaled Oxygen Concentration - - Weight 78.5 kg (173 lb) 11/12/2021 2:05 PM EDT Height 160 cm (5' 3 ) 11/12/2021 2:05 PM EDT Body Mass Index 30.65 11/12/2021 2:05 PM EDT Plan of Treatment Health Maintenance Due Date Last Done Comments Hepatitis B Vaccines (1 of 3 - 19+ 3-dose series) 2011 Pneumococcal Vaccine: Pediat rics (0 to 5 Years) and At-Risk Patients (6 to 64 Years) (1 of 2 - PCV) 2011 Depression Screening 06/05/2022 HIV Screening 06/05/2022 Hepatitis C Screening 06/05/2022 Social Influencers of Health Screening 06/05/2022 Cervical Cancer Screening: P ap Smear 01/28/2023 01/29/2020 COVID-19 Vaccine (2 - 2023-2 5 season) 2024 05/05/2021 Influenza Vaccine (Season Ended) 2025 DTaP,Tdap,and Td Vaccines (2 - Td or Tdap) 06/08/2030 06/08/2020 HIB Vaccines Aged Out No longer eligi ble based on patient's age to complete this topic HPV Vaccines Aged Out No longer eligi ble based on patient's age to complete this topic Hepatitis A Vaccines Aged Out No long er eligible based on patient's age to complete this topic IPV Vaccines Aged Out No longer eligi ble based on patient's age to complete this topic MMR Vaccines Aged Out No longer eligi ble based on patient's age to complete this topic Meningococcal ACWY Vaccine Aged Out N o longer eligible based on patient's age to complete this topic Meningococcal B Vaccine Aged Out No l onger eligible based on patient's age to complete this topic RSV Immunization Patients Un freddie 20 months Aged Out No longer eligible b ased on patient's age to complete this topic Varicella Vaccines Aged Out No longer eligible based on patient's age to complete this topic Procedures Procedure Name Priority Date/Time Associated Diagnosis Comments PAP SMEAR Routine 01/29/2020 from Last 3 Months or Most Recently Relevant to Health Maintenance Results * Pap smear (01/29/2020) 01/29/2020 Narrative HISTORICAL TESTING LAB RESULTING AGENCY - 02/05/2020 12:10 PM EDT [id number] THINPREP PAP, IMAGED: NEGATIVE FOR SQUAMOUS INTRAEPITHELIAL LESION AND MALIGNANCY . REACTIVE CELLULAR CHANGES. CLUE CELLS ARE PRESENT. SALENA SANCHEZ , CT(ASCP) (CASE SCREENED 01 31 2020) ROSELIA MEREDITH M.D. , PATHOLOGIST (CASE ELECTRONICALLY SIGNED 02 04 2020) ADEQUACY: SATISFACTORY ENDOCERVICAL/TRANSFORMATION ZONE COMPONENT PRESENT. SOURCE: THINPREP PAP HPV IF ASCUS, CERVICAL, IMAGED CLINICAL INFORMATION: HPV IF DIAGNOSIS OF ASCUS. , LMP 10/26/19, Z12.4 Zora Rivera CNM LAB CYTOLOGY ORDERABLES Final Result HISTORICAL TESTING LAB RESULTING AGENCY from Last 3 Months or Most Recently Relevant to Health Maintenance
[2024-10-15 14:01] LABS: Alanine Aminotransferase 11 U/L (0-31); Albumin Level 4.2 g/dL (3.5-5.0); Anion Gap 10 (12-20); Aspartate Amino Transferase 23 U/L (5-31); Bilirubin Total 0.3 mg/dL (0.0-1.0); Blood Urea Nitrogen 10 mg/dL (9-16); Calcium 9.2 mg/dL (8.4-10.2); Carbon Dioxide 27 mmol/L (22-29); Chloride 106 mmol/L (96-108); Cholesterol 171 mg/dL (<200); Estimated Glomerular Filt Rate > 60; Glucose Random 98 mg/dL (60-115); HDL Cholesterol 65 mg/dL (>40); LDL Cholesterol Calculated 95 mg/dL (<100); Potassium 3.9 mmol/L (3.3-5.1); Sodium 139 mmol/L (135-145); Total Protein 6.7 g/dL (6.5-8.0); Triglycerides 59 mg/dL (<150)
[2024-10-15 14:28] LABS: Folate 11.3 ng/mL (> or = 4.0); Vitamin B12 355 pg/mL (200-900)
[2024-10-15 14:33] LABS: Vitamin D 25-OH Total 17.5 ng/mL (>30)
[2024-10-15 15:27] LABS: CT PCR NOT DETECTED (Not Detect.); NG PCR NOT DETECTED (Not Detect.)
[2024-10-15 17:21] LABS: Alkaline Phosphatase 53 U/L (39-117)
[2024-10-16 04:58] LABS: Lyme Abs Screen <0.90 index
[2024-10-16 08:21] LABS: HBS Num1 209.01 mIU/mL (0-7.99); HBc Num1 0.12 S/CO (0.00-0.79); HBsAGNum1 0.29 S/CO (0.00-0.99); HIV AB/AG Nonreactive (Nonreactive); HIV Num 1 0.05 S/CO (0.00-0.99); Hepatitis B Core Antibody Nonreactive (Nonreactive); Hepatitis B Surface Antigen Negative (Negative); ~HepC Num1 0.19 S/CO (0.00-0.79); ~Hepatitis B Surface Antibody REACTIVE (Nonreactive); ~Hepatitis C Antibody Nonreactive (Nonreactive)
[2024-10-16 08:33] LABS: Syphilis Screen Nonreactive (Nonreactive)
== END 2024-10-15 11:16 | disposition home or self-care (01) ==
LOC: HO.HHCL 11:15
PROVIDERS: Visit Provider Student in an Organized Health Care Education/Training Program
DX: Z00.00 Encounter for general adult medical examination without abnormal findings (principal); G62.9 Polyneuropathy, unspecified; M79.2 Neuralgia and neuritis, unspecified
CPT/HCPCS: 80053; 80061; 82306; 82607; 82746; 83036; 84443; 85027; 86617; 86618; 86704; 86706; 86780; 86803; 87340; 87389; 87491; 87591

== ENCOUNTER 2024-12-12 16:15 | Outpatient (REF) | payer MEDICAID, SELFPAY ==
--- OUTSIDE RECORDS SUMMARY | 2024-12-12 18:15 | XMS_ITS | Encounter Summary ---
Author Organization [employer] Address [address] [place] [address] 7 [place] [address] Care Team Providers Care Digital Sales Assistant Name Role Phone Ruthie Hahn MD Primary Care Pro vider Dixie Sutton Unavailable Reason for Visit * Reason Onset Date Comments Med Refill 02/13/2024 Encounter Details Date Type Department Care Team (Late st Contact Info) Description 02/13/2024 Refill [facility] MEDICINE [address] [place], [place] [phone] Ruthie Hahn MD [address] [place] [address] Social History Tobacco Use Types Packs/Day Years Used Date Smoking Tobacco: Every Day Cigarettes Passive Smoke Exposure: Never Comments:Started 13 years of age ,stopped only during --smokes from 5 to 10 cigarettes a day . PQT calc 6.65 a year Alcohol Use Standard Drinks/Week Comments Yes 0 (1 standard drink = 0.6 oz pur e alcohol) social Depression Answer Date Recorded Patient Health Questionnaire-9 Score 17 03/07/2023 Housing Stability Answer Date Recorded What is your housing situation today? I have denys aide 04/17/[address] you li ve. Do you have problems with any of the following? None of the above 04/17/2023 Food Insecurity Answer Date Recorded Within the past 12 months, y ou worried that your food would run out before you got money to buy more: Never True 04/17/2023 Within the past 12 months,th e food you bought just didn't last and you didn't have enough money to get more: Never True Transportation Answer Date Recorded In the past 12 months, has l ack of transportation kept you from medical appts, meetings, work or from getting things needed for daily living? No 04/17/2023 Utilities Answer Date Recorded In the past 12 months, has t he electric, gas, oil or water company threatened to shut off services in your home? No 04/17/2023 Depression Answer Date Recorded Patient Health Questionnaire-2 Score 6 03/07/2023 Comments Unknown Sex and Gender Information Value Date Recorded Sex Assigned at Female 05/02/2022 10:23 AM EDT Legal Sex Female 10:23 AM EDT Gender Identity Female 05/02/2022 10:23 AM EDT Sexual Orientation Straight 03/02/2023 10 :34 AM EDT Occupation Industry Job Start Date Job End Date [employer] Not on file Not on file Not on file documented as of this encounter Plan of Treatment Upcoming Encounters Date Type Department Care Team (Late st Contact Info) Description 12/23/2024 2:30 PM EDT Office Visit [facility] OPTOMETRY [address] [place] [address] Orquidea Lafleur, OD [address] [place] [address] 01/07/2025 2:15 PM EDT Procedure Visit [facility] MEDICINE [address] [place] [address] Irina Michelle CNM [address] [place] [address] 03/14/2025 11:30 AM EDT Office Visit [facility] MEDICINE [address] [place] [address] Ruthie Hahn MD [address] [place] [address] documented as of this encounter Visit Diagnoses Not on filedocumented in this encounter Additional Health Concerns Assessment Noted Time PHQ-9 Depression Total Score: 17 023 9:18 AM EDT documented as of this encounter Care Teams Digital Sales Assistant Relationship Specialty Start Date End Date Ruthie Hahn MD [address] [place] [phone] PCP - General Internal Medicine 02/21/23 Dixie Sutton Community Health Worker 02/21/24 documented as of this encounter
[2024-12-17 14:24] LABS: PEU-Protein Creat Ratio Rand NOTE (0.024-0.184); PEU-Rand. Prot/Creat Ratio NOTE mg/g creat (24-184); PEU-Random Ur. Gamma Globulin 0 %; PEU-Random Urine A1 Globulin 0 %; PEU-Random Urine A2 Globulin 0 %; PEU-Random Urine Albumin 0 %; PEU-Random Urine Beta Globulin 0 %; PEU-Random Urine Creatinine 29 mg/dL (20-275); PEU-Random Urine Protein <4 mg/dL (5-24)
== END 2024-12-12 16:16 | disposition home or self-care (01) ==
LOC: HO.HHCLNP 16:15
PROVIDERS: Visit Provider Student in an Organized Health Care Education/Training Program
DX: G62.9 Polyneuropathy, unspecified (principal)
CPT/HCPCS: 82570; 84156; 84166

== ENCOUNTER 2025-01-07 15:03 | Outpatient (REF) | payer MEDICAID, SELFPAY ==
--- OUTSIDE RECORDS SUMMARY | 2025-01-07 15:45 | XMS_ITS | Clinical Summary ---
Author Organization [facility] Address [address] [place] [address] Care Team Providers Care Finance Intern Name Role Phone Unavailable Primary Care Provider [...] 5 Years) and At-Risk Patients (6 to 49 Years) (1 of 2 - PCV) 2011 Depression Screening 06/05/2022 HIV Screening 06/05/2022 Hepatitis C Screening 06/05/2022 Social Influencers of Health Screening 06/05/2022 Cervical Cancer Screening: P ap Smear 01/28/2023 01/29/2020 COVID-19 Vaccine (2 - 2023-2 5 season) 2024 05/05/2021 Influenza Vaccine (#1) 2025 DTaP,Tdap,and Td Vaccines (2 - Td [...] RESULTING AGENCY - 02/05/2020 12:10 PM EDT [id number] THINPREP PAP, IMAGED: NEGATIVE FOR SQUAMOUS INTRAEPITHELIAL [...]
--- OUTSIDE RECORDS SUMMARY | 2025-01-07 15:45 | XMS_ITS | Encounter Summary ---
Author Organization [employer] Address [address] [place] [address] 7 [place] [address] Care Team Providers Care Environmental Protection Forester Name Role Phone Ruthie Hahn MD Primary Care Pro vider Dixie Sutton Unavailable Reason for Visit * Reason Onset Date Comments Med Refill 02/13/2024 Encounter Details Date Type Department Care Team (Late st Contact Info) Description 02/13/2024 Refill [facility] MEDICINE [address] [place], [place] [phone] Ruthie Hahn MD [address] [place] [address] Social History Tobacco Use Types Packs/Day Years [...] Care Team (Late st Contact Info) Description 03/14/2025 11:30 AM EDT Office Visit [facility] MEDICINE [address] [place] [address] Ruthie Hahn MD [address] [place] [address] [phone] documented as of this encounter Visit Diagnoses Not on filedocumented in this encounter Additional Health Concerns Assessment Noted Time PHQ-9 Depression Total Score: 17 023 9:18 AM EDT documented as of this encounter Care Teams Environmental Protection Forester Relationship Specialty Start Date End Date Ruthie Hahn MD [address] [place] [id number] PCP - General Internal Medicine 02/21/23 Dixie Sutton Community Health Worker 02/21/24 documented as of this encounter
[2025-01-07 18:03] LABS: Alanine Aminotransferase 15 U/L (0-31); Albumin Level 4.5 g/dL (3.5-5.0); Alkaline Phosphatase 52 U/L (39-117); Aspartate Amino Transferase 22 U/L (5-31); Estimated Glomerular Filt Rate > 60; Total Protein 6.6 g/dL (6.5-8.0)
[2025-01-08 03:20] LABS: Syphilis Screen Nonreactive (Nonreactive)
[2025-01-08 03:40] LABS: HIV Num 1 0.04 S/CO (0.00-0.99); ~HepC Num1 0.14 S/CO (0.00-0.79); ~Hepatitis C Antibody Nonreactive (Nonreactive)
== END 2025-01-07 15:04 | disposition home or self-care (01) ==
LOC: HO.HHCL 15:03
PROVIDERS: PCP Student in an Organized Health Care Education/Training Program; Visit Provider Advanced Practice Midwife
DX: Z12.4 Encounter for screening for malignant neoplasm of cervix (principal); Z79.899 Other long term (current) drug therapy; Z11.3 Encounter for screening for infections with a predominantly sexual mode of transmission
CPT/HCPCS: 36415; 80076; 82565; 86780; 86803; 87389; 87491; 87591; 87626; 87661; 88175

== ENCOUNTER 2025-02-12 12:16 | Outpatient (AMB) | payer MEDICAID, SELFPAY ==
--- NOTE | 2025-02-12 12:19 | A.OFFVIS_ITS ---
Intake Visit Reasons: Neuropathy Allergies No Known Allergies Allergy (Verified 01/23/23 11:33) HPI Comments Details: This is a 33-year-old woman who first developed what sound like brain arthrogram and in her hands about 3 years ago. Throughout the day her fingers go numb off and on and feel swollen. They also hurt opening a bottle. Legs go tingly and go till she moves and changes position. Gets a lot of cramping in toes. When exposed to cold her hands would become very cold and pale and numb at the fingertips. After that, she started having more periods of numbness in the right hand, mostly the middle 3 fingers and to a lesser degree in the left hand. After that she developed brief periods of electrical shocklike sensation in the right leg and calf and thigh. During which time she cannot walk. She has chronic low back pain. The shocklike pins last about 20 min. and it for a few days a week. She has no symptoms the left lower extremity. She's also been getting frequent headaches 3-4 times a week without any triggers. She had an MRI of the brain on 10/04/23 that showed a left temporal subcortical white matter 6 mm lesion and a few other punctate subcortical lesions bilaterally and some periventricular lesions. 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 Nerve conduction studies of the lower extremit ies on 11/21/23 showed mild to moderately severe sensorimotor axonal and demyelinating peripheral neuropathy. She also complains of occasional pains in the shoulder and neck. Labs for neuropathy were normal. [facility] Medical History (Updated 02/12/25 @ 12:35 by Corie Paul MD) Lumbar disc disease Cerebral microvascular disease Peripheral neuropathy Chronic neck and back pain Well controlled intermittent asthma Seasonal allergic rhinitis Obesity Glossodynia Chronic low back pain Bipolar affective disorder, current episode depressed History of COVID-19 External hemorrhoids with complication Anxiety Asthma Surgical History Hx of dilation and curettage Tubal ligation status Hx of section Social History Alcohol intake: current Alcohol intake frequency: holidays/special occasions only Alcohol type: hard liquor Patient Tobacco Use Status: Current everyday Tobacco user Tobacco use type: Cigarette Cigarettes Per Day: 6 Substance Use Type: Marijuana Female Reproductive History Menstrual Age of Menarche: 12 Review of Systems Const Details: Sleep:? Difficulty getting to sleep?admits.? Difficulty maintaining sleep?admits .? Urge to move legs?denies.? Teeth grinding?denies.? Shouting or Kicking during sleep?denies.? Abnormal behavior during sleep?denies.? Excessive sleep?denies.? Snoring?denies.? Daytime sleepiness?denies.? ?? General/Constitutional:? Change in appetite?denies.? Chills?denies.? Fatigue?admits.? Fever?denies .? Weight gain?admits.? Weight loss?admits.? ?? Ophthalmologic:? Blurred vision?admits.? Diminished visual acuity?denies.? ?? ENT:? Stuffiness?denies.? Decreased hearing?denies.? Dry mouth?denies.? Ear pain?denies.? Nosebleed?denies.? Ringing in the ears?denies.? Sinus pain?admits .? Sore throat?denies.? Swollen glands?denies.? ?? Endocrine:? Cold intolerance?denies.? Excessive thirst?admits.? Frequent urination? denies.? Heat intolerance?admits.? ?? Respiratory:? Shortness of breath?denies.? Chest pain?denies.? Cough?denies.? ?? Breast:? Breast lump?denies.? Nipple discharge?denies.? ?? Cardiovascular:? Chest pain at rest?admits.? Chest pain with exertion?denies.? Claudication?denies.? Dizziness?denies.? Fluid accumulation in the legs?admits.? Irregular heartbeat?denies.? Palpitations?denies.? ?? Gastrointestinal:? Abdominal pain?denies.? Constipation?denies.? Diarrhea?denies.? Difficulty swallowing?denies.? Heartburn?denies.? Nausea?admits.? Rectal bleeding?denies.? ?? Hematology:? Easy bruising?denies.? Prolonged bleeding?denies.? ?? Genitourinary:? Frequent urination?denies.? Urgency?denies.? Incontinence?denies.? Erectile Dysfunction?denies.? ?? Musculoskeletal:? Neck pain?admits.? Back pain?admits.? Muscle aches?admits.? Painful joints?admits.? Sciatica?denies.? Weakness?denies.? ?? Podiatric:? Difficulty walking?denies.? Foot numbness?denies.? ?? Neurologic:? Difficulty swallowing?denies.? Balance difficulty?denies.? Coordination? normal.? Difficulty speaking?denies.? Dizziness?admits.? Fainting?denies.? Gait abnormality?denies.? Headache?admits.? Loss of strength?denies.? Loss of use of extremity?denies.? Low back pain?denies.? Memory loss?admits.? Seizures?denies.? Tics?denies.? Tingling/Numbness?denies.? Transient loss of vision?denies.? Tremo r?admits.? ?? Psychiatric:? Anxiety?admits.? Auditory/visual hallucinations?denies.? Delusions? excessive anger, agitation.? Depressed mood?admits.? Stressors?denies.? Substance abuse?denies.? Suicidal thoughts?denies.? ?? Physical Exam Neuro Other: Neurological: ? Abnormal neurological findings:??none.? Mental Status:?alert and oriented X 3,?Normal attention, orientation, memory and affect.? Cranial Nerves:?Pupils are equal, round and reactive to light. Fundoscopy shows normal disc bilaterally. External occular muscles are intact. Visual gomez are full, no ptosis. Face is symmetrical, no facial weakness or droop. Facial sensations are normal. Tongue protrudes in midline. Palate elevates symmetrically. Shoulder shrugging is normal..? Motor Examination:?Normal muscle tone, bulk and strength,?No atrophy or fasciculations,?No drift of the extended upper extremities,?Deep tendon reflexes are 0-1+?,?Plantars are flexor?.? Motor Strength:? Proximal Muscles (out of 5): ?5 ? Distal Muscles (out of 5): ?5 ? Neck Flexors (out of 5): ?5 ? Neck Extensors (out of 5): ?5 ? Deltoid (out of 5): ?5 ? Biceps (out of 5): ?5 ? Triceps (out of 5): ?5 ? Serratus Anterior (out of 5): ?5 ? Wrist Extensors (out of 5): ?5 ? APB (out of 5): ?5 ? Finger Spread (out of 5): ?5 ? Ileopsoas (out of 5): ?5 ? Quadriceps (out of 5): ?5 ? Hamstrings (out of 5): ?5 ? Tibialis Anterior (out of 5): ?5 ? Peronei (out of 5): ?5 ? EDB (out of 5): ?5 ? Gastrocnemius (out of 5): ?5 ? Straight Leg Raising:?90 degrees.? Sensory Exam:?Normal light touch, temperature, pinprick, vibration and joint-position sensations?,?Rhomberg sign is absent.? Coordination:?no ataxia,?no titubation,?ssikfc-sp-pkin, fpmv-joih-tnpo test and rapid alternating movements were normal.? Gait Exam:?Within normal limits.? Cerebellar Signs:?Wqhmgz-av-aobv and mffv-jx-yeny is normal,?no dysdiadochokinesia?.? Extrapyramidal System:?No tremor, rigidity with normal facial expressions,?No bradykinesia, no bradyphrenia. Normal arm swing and posture. No propulsion or retropulsion.? Speech:?Normal,?no dysphasia or dysarthria..? Mini Mental Status Exam: ? Level of Consciousness:?Alert.? Orientation:?Knows correct year, month, date, day and season,?Knows correct city, county and state. Knows correct location and floor.? Registration:?Able to register 3 objects.? Attention:?Serial 7's performed accurately.? Recall:?Able to recall 3 out of 3 objects.? Language:?Normal spontaneous speech, fluency, repetition,naming, comprehension, reading and writing.? Total Score:?30/30.? General Examination: ? GENERAL APPEARANCE:?normal,?in no acute distress.? HEAD:?normocephalic,?atraumatic.? EYES:?sclera non-icteric,?conjunctiva clear.? EARS:?auditory canal clear,?tympanic membrane intact, clear.? NOSE:?no lesions.? ORAL CAVITY:?gums normal,?mucosa moist,?no lesions.? THROAT:?clear.? NECK/THYROID:?no cervical lymphadenopathy,?thyroid normal,?neck supple, full range of motion,?no carotid bruit.? SKIN:?no rashes,?no significant birthmarks.? HEART:?S1, S2 normal,?no murmurs.? LUNGS:?clear anteriorly and posteriorly.? CHEST:?no gross rib deformity,?clear to auscultation.? BACK:?normal exam of spine.? EXTREMITIES:?no edema.? PERIPHERAL PULSES:?normal.? PSYCH:?alert, oriented,?cognitive function intact,?cooperative with exam.? Assessment & Plan Assessment & Plan (1) Demyelinating disease of central nervous system: Code(s): G37.9 - Demyelinating disease of central nervous system, unspecified Category: Medical (2) Peripheral neuropathy: Code(s): G62.9 - Polyneuropathy, unspecified Category: Medical Plan because of worsening sx, will repeat MRI brain and NCV/EMG Orders: Orders NE nerve conduction velocity Today G62.9 - Polyneuropathy, unspecified NE electromyogram (EMG) Today G62.9 - Polyneuropathy, unspecified MR head/brain wo/w con 4 Weeks G37.9 - Demyelinating disease of central nervous system, unspecified Coding Level of Care Code Est Pt Level 4 (34707) Diagnoses Demyelinating disease of central nervous system G37.9 Peripheral neuropathy G62.9
--- OUTSIDE RECORDS SUMMARY | 2025-02-12 12:56 | XMS_ITS | Clinical Summary ---
Author Organization [facility] Address [address] [place] [address] Care Team Providers Care Miller [employer] Name Role Phone Unavailable Primary Care Provider [...] Years) (1 of 2 - PCV) 2011 HIV Screening 06/05/2022 Hepatitis C Screening 06/05/2022 Social Influencers of Health Screening 06/05/2022 Cervical Cancer Screening: P ap Smear 01/28/2023 01/29/2020 COVID-19 Vaccine (2 - 2023-2 5 season) 2024 05/05/2021 Depression Screening 07/03/2024 Influenza Vaccine (#1) 2025 DTaP,Tdap,and Td Vaccines [...] RESULTING AGENCY - 02/05/2020 12:10 PM EDT [id number] THINPREP PAP, IMAGED: NEGATIVE FOR SQUAMOUS INTRAEPITHELIAL [...]
--- OUTSIDE RECORDS SUMMARY | 2025-02-12 12:56 | XMS_ITS | Encounter Summary ---
Author Organization [employer] Address [address] [place] [address] 7 [place] [address] Care Team Providers Care Cost Clerk Name Role Phone Ruthie Hahn MD Primary Care Pro vider Dixie Sutton Unavailable Reason for Visit * Reason Onset Date Comments Med Refill 02/13/2024 Encounter Details Date Type Department Care Team (Late st Contact Info) Description 02/13/2024 Refill [facility] MEDICINE [address] [place], [place] [phone] Ruthie Hahn MD [address] [place] [address] Social History Tobacco Use Types Packs/Day Years [...] Team (Late st Contact Info) Description 03/14/2025 11:15 AM EDT Office Visit [facility] MEDICINE [address] [place] [phone] Ruthie Hahn MD [address] [place] [address] [phone] documented as of this encounter Visit Diagnoses Not on filedocumented in this encounter Additional Health Concerns Assessment Noted Time PHQ-9 Depression Total Score: 17 023 9:18 AM EDT documented as of this encounter Care Teams Cost Clerk Relationship Specialty Start Date End Date Ruthie Hahn MD [address] [place] [phone] PCP - General Internal Medicine 02/21/23 Dixie Sutton Community Health Worker 02/21/24 documented as of this encounter
== END 2025-02-12 13:03 | disposition home or self-care (01) ==
PROVIDERS: PCP Student in an Organized Health Care Education/Training Program; Referring Provider Student in an Organized Health Care Education/Training Program; Visit Provider Psychiatry & Neurology Neurology
DX: G37.9 Demyelinating disease of central nervous system, unspecified (principal); G62.9 Polyneuropathy, unspecified
CPT/HCPCS: 99214

== ENCOUNTER → 2025-02-12 12:16 | Outpatient (BNVA) | payer MEDICAID, SELFPAY | PROVIDERS: PCP Student in an Organized Health Care Education/Training Program; Referring Provider Student in an Organized Health Care Education/Training Program; Visit Provider Psychiatry & Neurology Neurology | DX: G37.9 Demyelinating disease of central nervous system, unspecified (principal); G62.9 Polyneuropathy, unspecified | CPT/HCPCS: 99212 ==

== ENCOUNTER 2025-02-25 13:05 | Outpatient (REF) | payer MEDICAID, SELFPAY ==
--- NOTE | 2025-02-25 13:09 | EMG_ITS ---
POLYNEUROPATHY, ALEXANDER HAND WEAKNESS RT>LT, SECOND DIGIT CRAMPING, TINGLING IN LOWER EXTREMITIES NCV/EMG ALL FOUR EXTREMITIES. Impression: Normal motor and sensory nerve conduction velocities in the upper and lower extremities, except for borderline prolonged distal motor latencies in the lower extremities. Normal EMG of the right C5-T1, and left L4-S1 innervated muscles. Please look at the detailed neurophysiological report MTDD
--- OUTSIDE RECORDS SUMMARY | 2025-02-25 13:52 | XMS_ITS | Encounter Summary ---
Author Organization [employer] Address [address] [place] [address] 7t [place] [address] Care Team Providers Care Spike Driver Name Role Phone Ruthie Hahn MD Primary Care Pro vider Dixie Sutton Unavailable Encounter Details Date Type Department Care Team ([facility] st Contact Info) Description 01/10/2025 Results Follow-Up [facility] MEDICINE [address] [place] [address] Irina Michelle, AMMON [address] [place] [address] STI testing add on (NG, CT, Trich), Creatinine, Serum, Hepatitis C Antibody with Reflex to HCV, RNA, Quantitative, Real-Time PCR, Additional followed-up results: 4 Social History Tobacco Use Types Packs/Day Years Used Date Smoking Tobacco: Every Day Cigarettes Passive Smoke Exposure: Never Comments:Started 13 years of age ,stopped only during --smokes 3 cig a day <---- 5 to 10 cigarettes a day . PQT calc 6.65 a year Alcohol Use Standard Drinks/Week Comments Yes 0 (1 standard drink = 0.6 oz pur e alcohol) social Depression Answer Date Recorded Patient Health Questionnaire-9 Score 12 03/06/2024 Patient Health Questionnaire-9 Score 12 03/06/2024 Last PHQ-9: Questionnaire Data Not on file 0 03/06/2024 Housing Stability Answer Date Recorded What is your housing situation today? I have denys noble 02/20/[address] you li ve. Do you have problems with any of the following? Pests such as bugs, ants, or mice 02/20/2024 Food Insecurity Answer Date Recorded Within the [...] Answer Date Recorded Patient Health Questionnaire-2 Score 0 03/06/2024 Internet Access Answer Date Recorded Internet Access Q1 Yes 03/04/2024 Internet Access Q2 Not on file 03/04/2024 Comments Unknown Sex and Gender Information Value [...] on file documented as of this encounter Miscellaneous Notes * Result Encounter Note - Irina Michelle CNM - 01/13/2025 8:17 AM EDT Done! * Result Encounter Note - Irina Michelle CNM - 01/10/2025 11:21 AM EDT Interested in [employer]. Baseline labs good, Hep B immune. Has DoxyPEP rx. Please followup with her to review injections and let me know if/when you need rx. Thanks! documented in this encounter Plan of Treatment Upcoming Encounters Date Type Department Care Team (Late st Contact Info) Description 03/14/2025 11:15 AM EDT Office Visit [facility] MEDICINE [address] [place] [address] Ruthie Hahn MD [address] [place], [place] [phone] documented as of this encounter Visit Diagnoses Not on filedocumented in this encounter Additional Health Concerns Assessment Noted Time PHQ-9 Depression Total Score: 12 024 11:33 AM EDT documented as of this encounter Care Teams Spike Driver Relationship Specialty Start Date End Date Ruthie Hahn MD [address] [place], [place] [phone] PCP - General Internal Medicine 02/21/23 Dixie Sutton Community Health Worker 02/21/24 documented as of this encounter
--- OUTSIDE RECORDS SUMMARY | 2025-02-25 13:52 | XMS_ITS | Encounter Summary ---
Author Organization [employer] Address [address] [place] [address] 7t [place] [address] Care Team Providers Care Bag End Sewer Name Role Phone Ruthie Hahn MD Primary Care Pro vider Dixie Sutton Unavailable Reason for Visit * Reason Onset Date Comments Med Refill 12/05/2024 Encounter Details Date Type Department Care Team (Late st Contact Info) Description 12/05/2024 Refill [facility] ADULT DENTAL [address] [place] [address] Jan Kearney DDS [address] [place] [address] Odontalgia; Irreversible pulpitis; Severe dental caries Social History Tobacco Use Types Packs/Day Years [...] as of this encounter Miscellaneous Notes * Telephone Encounter - Jan Kearney DDS - 12/05/2024 3:09 PM EDT Ibuprofen documented in this encounter Plan of Treatment Upcoming Encounters Date Type Department Care Team (Late st Contact Info) Description 03/14/2025 11:15 AM EDT Office Visit [facility] MEDICINE [address] [place] [address] [phone] Ruthie Hahn MD [address] [place], [place] [phone] documented as of this encounter Visit Diagnoses Diagnosis Odontalgia Unspecified disorder of the teeth and supporting structures Irreversible pulpitis Severe dental caries documented in this encounter Additional Health Concerns Assessment Noted Time PHQ-9 Depression Total Score: 12 024 11:33 AM EDT documented as of this encounter Care Teams Bag End Sewer Relationship Specialty Start Date End Date Ruthie Hahn MD [address] [place] [address] PCP - General Internal Medicine 02/21/23 Dixie Sutton Community Health Worker 02/21/24 documented as of this encounter
--- OUTSIDE RECORDS SUMMARY | 2025-02-25 13:52 | XMS_ITS | Encounter Summary ---
Author Organization [employer] Address [address] [place] [address] 7 [place] [address] Care Team Providers Care Ice Grinder Name Role Phone Ruthie Hahn MD Primary Care Pro vider Dixie Sutton Unavailable Reason for Visit * Reason Onset Date Comments Nurse Triage 02/12/2024 Encounter Details Date Type Department Care Team ([facility] st Contact Info) Description 02/12/2024 Telephone [facility] [address] [place] [address] Ruthie Hahn MD [address] [place] [address] Nurse Triage Social History Tobacco Use Types Packs/Day Years [...] encounter Miscellaneous Notes * Telephone Encounter - Susana Palacios RN - 02/12/2024 12:49 PM EDT Triage call Pt reports numbness of roof of mouth, right hand pinky and ring fingers, right calf some weakness/heaviness felt in right arm for last 2 weeks. Pt does reports some garbled speech at times. Pt was prescribed gabapentin for neuropathy which is making me sick and not doing anything . Pt is requesting to see a provider. ASK apt with Dr. Jasso 02/13/24 @ 1130am. Pt agrees with disposition. Pt is advised to seek evaluation at closest ED if symptoms increase . Pt agrees. Insurance is verified as active prior to booking. Protocol Used: Neurologic Deficit (Adult) Protocol-Based Disposition: See in Office or Video Visit within 3 Days Video visit offer not recorded Positive Triage Questions: * Loss of speech or garbled speech is a chronic symptom (recurrent or ongoing problem lasting > 4 weeks) * Weakness of arm or leg is a chronic symptom (recurrent or ongoing problem lasting > 4 weeks) * Numbness or tingling in one or both hands is a chronic symptom (recurrent or ongoing problem lasting > 4 weeks) * All higher-acuity triage questions were negative Care Advice Discussed: * Reasons To Call Back - Symptoms do not go away within 10 to 15 minutes - You become worse * Telephone Encounter - Daniel Gallardo - 02/12/2024 11:59 AM EDT Symptom: Numbness mouth and fingers Outcome: Schedule an urgent appointment (within 1 hour) or talk to a nurse or provider soon Reason: Getting worse The caller accepted this outcome documented in this encounter Plan of Treatment Upcoming Encounters Date Type Department Care Team (Late st Contact Info) Description 03/14/2025 11:15 AM EDT Office Visit [facility] [address] [place] [address] Ruthie Hahn MD [address] [place] [phone] documented as of this encounter Visit Diagnoses Not on filedocumented in this encounter Additional Health Concerns Assessment Noted Time PHQ-9 Depression Total Score: 17 023 9:18 AM EDT documented as of this encounter Care Teams Ice Grinder Relationship Specialty Start Date End Date Ruthie Hahn MD [address] [place] [phone] PCP - General Internal Medicine 02/21/23 Dixie Sutton Community Health Worker 02/21/24 documented as of this encounter
--- OUTSIDE RECORDS SUMMARY | 2025-02-25 13:52 | XMS_ITS | Encounter Summary ---
Author Organization [employer] Address [address] [place] [address] Care Team Providers Care Side Door Man Name Role Phone Lorraine Soni Primary Care Provider Jean Kim Primary Care Provider Ruthie Santacruz MD Primary Care Pro vider Dixie Sutton Unavailable Encounter Details Date Type Department Care Team (Late Contact Info) Description 08/18/2022 Telephone [facility] [address] [place] [address] [phone] Lorraine Soni FNP Social History Tobacco Use Types Packs/Day Years Used Date Smoking Tobacco: Every Day Cigarettes Passive Smoke Exposure: Never Alcohol Use Standard Drinks/Week Comments Not Currently 0 (1 standard drink = 0.6 oz [...] Encounters Date Type Department Care Team (Late Contact Info) Description 03/14/2025 11:15 AM EDT Office Visit [facility] [address] [place] [address] [phone] Ruthie Hahn MD [address] [place], [place] [phone] documented as of this encounter Visit Diagnoses Not on filedocumented in this encounter Care Teams Side Door Man Relationship Specialty Start Date End Date Lorraine Soni FNP PCP - General Family Medicine 06/28/22 08/31/22 Jean Cohen AGNP PCP - General Family Medicine 09/01/22 02/20/23 Ruthie Hahn MD [address] [place] [address] PCP - General Internal Medicine 02/21/23 Dixie Sutton Community Health Worker 02/21/24 documented as of this encounter
--- OUTSIDE RECORDS SUMMARY | 2025-02-25 13:52 | XMS_ITS | Clinical Summary ---
Author Organization [employer] Address [address] [facility] [address] [place] [address] Care Team Providers Care Nutrition Instructor Name Role Phone Ruthie Hahn MD Primary Care Pro vider Dixie Sutton Unavailable Allergies No known active allergies Medications * This document contains information received from the source organization and may not represent a complete record from that organization. albuterol 108 (90 Base) MCG/ACT inhaler Inhale 2 puffs every 6 (six) hours if needed for wheezing. 18 g 2 4 Active acetaminophen (Tylenol 8 Hour) 650 MG ER tablet Take 1 tablet (650 mg) by mouth every 8 (eight) hours if needed for mild pain. Do not crush, chew, or split. 30 tablet 5 Active gabapentin (Neurontin) 100 MG capsule Take 1 capsule (100 mg) by mouth Once per day. 90 capsule 5 026 Active gabapentin (Neurontin) 600 MG tablet Take 1 tablet (600 mg) by mouth at bedtime. 90 tablet 5 026 Active QUEtiapine (SEROquel) 50 MG tablet Take 1 tablet (50 mg) by mouth at bedtime. 90 tablet 5 Active cholecalcifero l (Vitamin D-3) 25 MCG (1000 UT) tablet Take 1 tablet (25 mcg) by mouth Once per day. 90 tablet 1 5 Active doxycycline (Vibra-Tabs) 100 MG tablet Take two tablets together as directed as indicated 60 tablet 5 Active Cabotegravir ER (Apretude) 600 MG/3ML Suspension Extended Release Inject 1 each into the muscle See administration instructions. Ventrogluteal. Bring to office for injection. 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 Severe dental caries 07/15/2024 Tension headache 03/06/2024 Acute midline low back pain with bilateral sciat ica 11/21/2023 Neuralgia and neuritis 03/04/2023 Tobacco abuse 03/04/2023 Marijuana use 03/04/2023 Chronic neck and back pain 10/21/2022 Anxiety 07/06/2022 Well controlled intermittent asthma 07/06/2022 Bipolar affective disorder, current episode depr essed 05/29/2018 Obesity 05/29/2018 Resolved Problems Problem Noted Date Diagnosed Date Resolved Date 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 09/29/2023 Glossodynia 05/29/2018 03/04/2023 Encounters Date Type Department Care Team Description 02/12/2025 Telephone [facility] [address] [place] [phone] Adelaida Clement CNM April01/27/2025 9:15 AM EDT Office Visit [facility] [address] [place] [address] Davion, Elen, OD Myopia, bilateral (Primary Dx) 01/14/2025 Telephone [facility] [address] [place] [address] Verenice Travis RN 01/13/2025 Orders Only [facility] [address] [place] [phone] Adelaida Clement CNM 01/10/2025 Results Follow-Up [address] [phone] Adelaida Clement CNM STI testing add on (NG, CT, Trich), Creatinine, Serum, Hepatitis C Antibody with Reflex to HCV, RNA, Quantitative, Real-Time PCR, Additional followed-up results: 4 01/07/2025 2:15 PM EDT Procedure Visit [facility] [address] [place] [address] Adelaida Clement CNM Cervical cancer screening (Primary Dx); Screening examination for venereal disease; On mcfp drug therapy; Acute vaginitis 01/07/2025 Travel 01/06/2025 Travel 01/06/2025 Telephone [facility] [address] [place] [address] Ruthie Hahn MD Chart Prep 12/23/2024 2:30 PM EDT Office Visit [facility] [address] [place] [address] Tarka, Orquidea, OD Myopia, bilateral (Primary Dx) 12/23/2024 Travel 12/12/2024 10:30 AM EDT Office Visit [facility] [address] [place] [address] Ruthie Hahn MD Neuropathy (Primary Dx); Dietary counseling; Exercise counseling; Bipolar affective disorder, current episode depressed, current episode severity unspecified ([facility]); Well controlled intermittent asthma; Class 1 obesity due to excess calories without serious comorbidity with body mass index (BMI) of 32.0 to 32.9 in adult; Anxiety; Tobacco abuse 12/12/2024 Travel 12/11/2024 Telephone [facility] [address] [place] [address] Tawnya Davidson MA Chart Prep 12/05/2024 Refill [facility] [address] [place] [address] Ruthie Hahn MD 12/05/2024 Refill [facility] [address] [place] [address] Jan Kearney DDS Odontalgia; Irreversible pulpitis; Severe dental caries 12/05/2024 Patient Outreach [facility] [address] [place], [place] [phone] Ruthie Hahn MD Pre-visit Planning ([facility] unable to reach [facility] ) from Last 3 Months Immunizations Immunization Administration Dates Next Due DTaP 01/08/1998, 8,01/10/1994,1992,1992 HPV, Quadrivalent 10/31/2013 Hep B, Unspecified 10/31/2013, 3,1992,1992 HiB, unspecified 10/26/1993, 3,1992,1992 IPV 12/19/1997, 4,1992,1992 Influenza injectable quadriv alent IIV4 with preservative 05/29/2018 Influenza injectable quadriv alent preservative free 05/09/2023 MMR 10/31/2013,03/17/1997,10/26/1993 Pfizer Covid-19 Vaccine 12+ 09/28/2023,,04/14/2021 Pfizer Covid-19 Vaccine 12+ Bivalent 03/02/2023 Td (adult), 5 Lf tetanus tox oid, preservative free, adsorbed 06/09/2012 Td (adult), unspecified 03/09/2005 Tdap 06/08/2020 Varicella 08/14/2008 Family History Medical History Relation Name Comments Bipolar disorder Brother Multiple sclerosis Brother DM2 [Other], CHF, HTN Father Cancer Father's Sister unknown type Alzheimer's disease Maternal Grandmother DM2,depression,CHF Mother 3 sisters with Alzherimer Mother's Sister Prostate cancer Paternal Grandfather Bipolar disorder Sister Relation Name Status Comments Brother Father Father's Sister Maternal Grandmother Mother Mother's Sister Paternal Grandfather Sister Social History Tobacco Use Types Packs/Day Years Used Date Smoking Tobacco: Every Day Cigarettes Passive Smoke Exposure: Never Tobacco Cessation:Ready to Q uit: Not Asked; Counseling Given: Not Answered Comments:Started 13 years of age ,stopped only [...] Q2 Not on file 03/04/2024 Comments Unknown Intention Date Recorded No desire to become (finding) 0 01/07/2025 Sex and Gender Information Value Date Recorded Sex Assigned at Female 05/02/2022 10:23 AM EDT Legal Sex Female 10:23 AM EDT Gender Identity Female 05/02/2022 10:23 AM EDT Sexual Orientation Straight 03/02/2023 10 :34 AM EDT Occupation Industry Job Start Date Job End Date [employer] Not on file Not on file Not on file Last Filed Vital Signs Vital Sign Reading Time Taken Comments Blood Pressure 120/60 01/07/2025 2:45 PM EDT Pulse 73 01/07/2025 2:45 PM EDT Temperature 37.3 C (99.2 F) 01/07/2025 2:45 PM EDT Respiratory Rate 20 01/07/2025 2:45 PM EDT Oxygen Saturation 99% 12/12/2024 10:51 AM EDT Inhaled Oxygen Concentration - - Weight 83.6 kg (184 lb 6.4 oz) 01/07/2025 2:45 P M EDT Height 160 cm (5' 3 ) 01/07/2025 2:45 PM EDT Body Mass Index 32.66 01/07/2025 2:45 PM EDT Plan of Treatment Upcoming Encounters Date Type Department Care Team (Late st Contact Info) Description 03/14/2025 11:15 AM EDT Office Visit [facility] [address] [place], [place] [phone] Ruthie Hahn MD [address] [place], [place] [phone] Health Maintenance Due Date Last Done Comments Dental Oral Exam 1990 Dental Prophylaxis 1990 Pneumococcal Vaccine: Pediatrics (0 to 5 Years) and At-Risk Patients (6 to 49) Years (1 of 2 - PCV) 2011 HPV Vaccines (2 - 3-dose series) 11/28/2013 10/31/2013 COVID-19 Vaccine ( season) 2024 09/28/2023, 03/02/2023, 05/05/2021, Additional history exists Depression Monitoring 09/03/2024 03/06/2024, 024 SDOH Screening 02/19/2025 02/20/2024 Influenza Vaccine (#1) 2025 05/09/2023, 2017 Dental X-Ray: Bitewings 08/23/2025 08/22/2024 Alcohol/Substance Use Screening 12/12/2025 12/12/2024 Disability Screening 01/06/2026 01/06/2025 Family Planning (PISQ) 01/07/2026 01/07/2025 Tobacco Screening 01/07/2026 01/07/2025 Dental X-Ray: Full Mouth 10/04/2027 10/02/2024, 07/03 Lipid Panel 10/15/2029 10/15/2024, 02/02, 12/27/2021 Cervical Cancer Screening 01/07/2030 HPV/Cotest 01/07/2030 01/07/2025 Pap Smear 01/07/2030 01/07/2025, 01/29/2020 DTaP/Tdap/Td Vaccines (6 - Td or Tdap) 06/08/2030 06/08/2020, 06/09/2012, 03/09/2005, Additional history exists Zoster Vaccines (1 of 2) 2042 RSV Patients and Patients Aged 60 years or older (1 - 1-dose 75+ series) 2067 HIB Vaccines Completed 10/26/1993, 12/31, 1992, Additional history exists IPV Vaccines Completed 12/19/1997, 12/31, 1992, Additional history exists Hepatitis B Vaccines Completed 10/31/2013, 04/13/1993, 1992, Additional history exists HIV Screening Completed 01/07/2025, 10/01, 10/02/2023, Additional history exists Hepatitis C Screening Completed 01/07/2025 , 10/15/2024, 10/02/2023, Additional history exists Hepatitis A Vaccines Aged Out No long er eligible based on patient's age to complete this topic Meningococcal B Vaccine Aged Out No l onger eligible based on patient's age to complete this topic Meningococcal Vaccine Aged Out No geetha derrell eligible based on patient's age to complete this topic RSV under 20 months Aged Out No longe r eligible based on patient's age to complete this topic Rotavirus Vaccines Aged Out No longer eligible based on patient's age to complete this topic Procedures Procedure Name Priority Date/Time Associated Diagnosis Comments POCT WET MOUNT/MARIBEL Routine 01/07/2025 4: 27 PM EDT Acute vaginitis HEPATIC FUNCTION PANEL Routine 01/07/2025 3:08 PM EDT On buttermaker helper drug therapy SYPHILIS SCREEN Routine 01/07/2025 3:08 PM EDT Screening examination for venereal disease HIV 1/2 ANTIGEN/ANTIBODY, FOURTH GENERATION W/RFL Routine 01/07/2025 3:08 PM EDT Screening examination for venereal disease HEPATITIS C AB W/REFL TO HCV RNA, QN, PCR Routine 01/07/2025 3:08 PM EDT Screening examination for venereal disease CREATININE, SERUM Routine 01/07/2025 3:0 8 PM EDT On mcfp drug therapy CHLAMYDIA/N. GONORRHOEAE AND T. VAGINALIS RNA, QUAL,TMA Routine 01/07/2025 3:03 PM EDT Screening examination for venereal disease PAP SMEAR Routine 01/07/2025 3:03 PM EDT Cervical cancer screening HPV DNA, LOW/HIGH RISK Routine 01/07/2025 3:03 PM EDT PROTEIN, TOTAL AND PROTEIN ELECTROPHORESIS, RANDOM URINE Routine 12/12/2024 11:26 AM EDT LIPID PANEL, STANDARD Routine 10/15/2024 11:18 AM EDT Annual physical exam PANORAMIC RADIOGRAPHIC IMAGE Routine 10/02/2024 11:00 AM EDT BITEWING - SINGLE RADIOGRAPHIC IMAGE Routine 08/22/2024 2:30 PM EST from Last 3 Months or Most Recently Relevant to Health Maintenance Results * POCT fern test, vaginal fluid manually resulted (01/07/2025 4:27 PM EDT) MARIBEL Prep Positive Comment:pH 5.5, pos whiff, p os clue, neg trich, neg yeast, few wbc Vaginal Fluid Vaginal structure / Unknown 01/07/2025 4:27 PM EDT Adelaida VERDE POINT OF CARE TEST ENTER/ EDIT ORDERABLES Final Result * Syphilis Screen (01/07/2025 3:08 PM EDT) Syphilis Screen Nonreactive Nonreactive [facility] Blood Venous blood specimen / Unknown 01/07/2025 3:08 PM EDT 01/07/2025 5:13 PM EDT Adelaida Clement CNM LAB BLOOD ORDERABLES Destinee l Result [facility] [address] [place] [phone] * Creatinine, Serum (01/07/2025 3:08 PM EDT) Creatinine, Serum 0.67 0.5 - 1.4 mg/dL [facility] Estimated Glomerular Filt Rate >60 [facility] Comment:Chronic Kidney Disea se: Estimated GFR < 60 mL/min/1.35d2Egrply Kidney Disease: Estimated GFR < 15 mL/min/1.73m2 Blood 01/07/2025 3:08 PM EDT 01/07/2025 5:13 PM EDT [facility] BLOOD ORDERABLES Destinee l Result Performing Organization Address [facility]/ZIP Co de Phone Number [facility] [address] [place] [address] [phone] * Hepatitis C Antibody with Reflex to HCV, RNA, Quantitative, Real-Time PCR (01/07/2025 3:08 PM EDT) Hepatitis C Antibody Nonreactive Nonreactive [facility] Comment:Antibodies to HCV no t detected; does not exclude early acuteHCV infection. Blood Venous blood specimen / Unknown 01/07/2025 3:08 PM EDT 01/07/2025 5:13 PM EDT [facility] BLOOD ORDERABLES Destinee l Result [facility] [address] [place] [phone] [phone] * HIV-1/2 Antigen and Antibodies, Fourth Generation, with Reflexes (01/07/2025 3:08 PM EDT) HIV AB/AG Nonreactive Nonreactive [facility] Comment:HIV-1 p24 Ag and/or HIV-1/HIV-2 Ab not detected.A test result that is nonreactive does not exclude thepossibility of exposure to or infection with HIV-1 and/orHIV-2. Nonreactive results in this assay for individualswith prior exposure to HIV-1 and/or HIV-2 may be due toantigen and antibody levels that are below the limit ofdetection of this assay.The Shootit[employer] HIV Ag/Ab Combo assay result andsupplemental assay results should be interpreted inconjunction with the patient's clinical presentation,history and other laboratory results. If the results areinconsistent with clinical evidence, additional testing issuggested to confirm the result. Blood Venous blood specimen / Unknown 01/07/2025 3:08 PM EDT 01/07/2025 5:13 PM EDT Adelaida Clement [facility] LAB BLOOD ORDERABLES Destinee l Result Performing Organization Address [facility] Co de Phone Number [facility] [address] [place] [phone] * Hepatic Function Panel (01/07/2025 3:08 PM EDT) Bilirubin, Total 0.3 0.0 - 1.0 mg/dL [facility] Bilirubin, Direct 0.1 0.0 - 0.5 mg/dL [facility] Aspartate Amino Transferase 22 5 - 31 U/L [facility] Alanine Aminotransferase 15 0 - 31 U/L [facility] Total Protein 6.6 6.5 - 8.0 g/dL [facility] Albumin Level 4.5 3.5 - 5.0 g/dL [facility] Alkaline Phosphatase 52 39 - 117 U/L [facility] Blood Venous blood specimen / Unknown 01/07/2025 3:08 PM EDT 01/07/2025 5:13 PM EDT Adelaida [facility] LAB BLOOD ORDERABLES Destinee l Result Performing Organization Address [facility] Co de Phone Number [facility] [address] [place] [phone] * STI testing add on (NG, CT, Trich) (01/07/2025 3:03 PM EDT) Trichomonas (NAAT) NOT DETECTED NOT DETECTED [facility] Comment:The analytical perfo rmance characteristics of thisassay have been determined by [employer]. Themodifications have not been cleared or approved bythe FDA. This assay has been validated pursuant to theCLIA regulations and is used for clinical purposes.For additional information, please refer tohttp://education.Xunlei/faq/Trichomonastma(This link is being provided for information/educational purposes only.)THIS TEST WAS PERFORMED AT:[employer] [place] [phone] ANTONIO MEJIA MD CTNG Ref Lab NOT DETECTED NOT DETECTED [facility] NG Ref Lab NOT DETECTED NOT DETECTED [facility] ThinPrep vial Cervix uteri structure / Unknown 01/07/2025 3:03 PM EDT 01/08/2025 8:30 AM EDT Narrative [facility] - 01/10/2025 12:32 AM EDT Collection Date: [id number] by: RASHMI Wright: Cervix Adelaida Clement [facility] LAB CYTOLOGY ORDERABLES F inal Result [facility] [address] [place] [phone] * HPV DNA, Low/High Risk (01/07/2025 3:03 PM EDT) HPV High Risk Negative Negative [facility] HPV Genotype 16 Negative Negative [facility] HPV Genotype 18 Negative Negative [facility] Comment:HPV testing performe d at [facility] (CLIA#[id number]), [address] [place] [phone].Testing for HPV was performed using the Deandre KARTHIK [employer]system. The presence of HPV in the female genital tract isassociated with a number of diseases, including cervicalcarcinoma. The HPV DNA high risk pool tests for HPV 31, 33,35, 39, 45, 51, 52, 56, 58, 59, 66 and 68. The testing forHPV 16 and 18 genotypes has also been performed. A positiveresult indicates detection of nucleic acid sequences fromone or more subtypes, whereas a negative result indicatessuch sequences were not detected. 01/07/2025 3:03 PM EDT 01/08/2025 8:30 AM EDT us Adelaida Miguel Angel [facility] LAB BLOOD ORDERABLES Destinee l Result [facility] [address] [place] [phone] * Pap Smear (01/07/2025 3:03 PM EDT) Swab Cervix uteri structure / Unknown 01/07/2025 3:03 PM EDT 01/08/2025 8:30 AM EDT Narrative [facility] - 01/10/2025 12:53 PM EDT ----- ------- Name: Shyla Torres Age/Sex: 34/F : 1990 Unit#: [id number] Attend Dr: Re01/07/25 Status: PRE REF Location: [facility] Disch: ----- ------- SPEC : [id number] RECD: 01/08/25 STATUS: ROMANA YODER NUM: [id number] KIMI: 01/07/25-[address]: ADELAIDA CLEMENT CNM ENTERED: 01/08/25 SP TYPE: Pap Smr OTHR DR: ORDERED: Pap Smear Interpretation Satisfactory for evaluation. Negative for intraepithelial lesion or malignancy. Coccobacilli consistent with shift in vaginal jaiden. HPV High Risk: Negative HPV Genotyping 16: Negative HPV Genotyping 18: Negative Clinical Information LMP: Unknown date Previous PAP test: 2019, NIL Other history: Cervical cancer screening Material Received ThinPrep-Cervical PAP Disclaimer As of April 24, 2024, the technical services to include automated prescreening performed by the ThinPrep Imaging System, PAP screening and HPV testing will be performed at [facility] (CLIA #[id number]), [address] [place] [address]. Testing for HPV was performed using the [employer] system. The presence of HPV in the female genital tract is associated with a number of diseases, including cervical carcinoma. The HPV DNA high risk pool tests for HPV 31, 33, 35, 39, 45, 51, 52, 56, 58, 59, 66 and 68. The testing for HPV 16 and 18 genotypes has also been performed. A positive result indicates detection of nucleic acid sequences from one or more subtypes, whereas a negative result indicates such sequences were not detected. All professional services are performed by [facility] ([address] [place] [id number]; ; CLIA #[id number]). The PAP Test is a screening procedure with the inherent possibility of both false negative and false positive results. Results should be interpreted in the context of historic and current clinical findings. Reliability of the PAP Test is enhanced by performing the test on a regular repetitive basis. CONTINUED ON NEXT PAGE ----- ------- Name: Shyla Torres Age/Sex: 34/F : 1990 Unit#: [id number] Attend Dr: Re01/07/25 Status: PRE REF Location: [facility] Disch: ----- ------- SPEC : [id number] RECD: 01/08/25 STATUS: ROMANA YODER NUM: [id number] KIMI: 01/07/25-1502 [facility] DR: ADELAIDA CLEMENT ENTERED: 01/08/25 SP TYPE: Pap Carlos SEARS DR: ORDERED: Pap Smear ----- ------- Signed (signature on file) RON Guido (ASC) 01/10/25 1253 ----- ------- END OF REPORT us Adelaida Clement [facility] LAB CYTOLOGY ORDERABLES F inal Result Performing Organization Address City/[facility]/ZIP Co de Phone Number [facility] [address] [place] [phone] * (ABNORMAL) Protein Electrophoresis and Total Protein, Random Urine (12/12/2024 11:26 AM EDT) PEU-Random Urine Creatinine 29 20 - 275 mg/dL [facility] PEU-Random Urine Protein <4(A) 5 - 24 mg/dL [facility] PEU-[place]. Prot/Creat Ratio NOTE 24 - 184 mg/g creat [facility] Comment:THE PROTEIN VALUE IS LESS THAN 4 MG/DLTHEREFORE WE ARE UNABLE TO CALCULATEEXCRETION AND/OR CREATININE RATIO. [facility]-Random Urine Albumin 0 % [facility] PEU-Random Urine A1 Globulin 0 % [facility] PEU-Random Urine A2 Globulin 0 % [facility] PEU-Random Urine Beta Globulin 0 % [facility] PEU-Random Ur. Gamma Globulin 0 % [facility] PEU Ran-Abn Protein Band 1 TNP [facility] Ran[facility]Abn Protein Band 2 [facility] Ran-Abn Protein Band 3 [facility] PEU-Random Urine Interpret. SEE NOTE [facility] Comment:Normal PatternTHIS T EST WAS PERFORMED AT:[facility] [place] [phone] ANTONIO MEJIA MD Protein/Creatinine Ratio NOTE 0.024 - 0.184 [facility] Comment:Result Units: mg/mg creat 12/12/2024 11:2 6 AM EDT 12/12/2024 4:16 PM EDT us Ruthie Clemens MD LAB URINE ORDERAB LES Final Result [facility] [address] [place] [phone] * Lipid Panel, Standard (10/15/2024 11:18 AM EDT) Triglycerides 59 <150 mg/dL [facility] Comment:Desirable Triglyceri de: less than 150 mg/dLBorderline High Triglyceride 150-199 mg/dLHigh Triglyceride: 200-499 mg/dLVery High Triglyceride: greater than or equal to 5OO mg/dL Cholesterol 171 <200 mg/dL [facility] Comment:Desirable Cholestero l: less than 200 mg/dLBorderline High Cholesterol: 200-239 mg/dLHigh Cholesterol: greater than 239 mg/dL LDL Cholesterol Calculated 95 <100 mg/dL [facility] Comment:Desirable LDL: less than 100 mg/dLNear Optimal/Above Optimal LDL: 110- 129 mg/dLBorderline High LDL: 130-159 mg/dLHigh LDL: 160-189 mg/dLVery High LDL: greater than or equal to 190 mg/dL HDL Cholesterol 65 >40 mg/dL [facility] Comment:Desirable HDL: great er than 40 mg/dL Note: This HDL assay may give artificially low results in patients with liver disease. Blood Venous blood specimen / Unknown 10/15/2024 11:18 AM EDT 10/15/2024 1:22 PM EDT us Ruthie Clemens MD LAB BLOOD ORDERAB LES Final Result [facility] [address] [place] [phone] from Last 3 Months or Most Recently Relevant to Health Maintenance Insurance [facility] [place] AD[place] Care Teams Nutrition Instructor Relationship Specialty Start Date End Date Ruthie Hahn MD [address] [place] [phone] PCP - General Internal Medicine 02/21/23 Dixie Sutton Community Health Worker 02/21/24
--- OUTSIDE RECORDS SUMMARY | 2025-02-25 13:52 | XMS_ITS | Encounter Summary ---
Author Organization [employer] Address [address] [place] [address] 7 [place] [address] Care Team Providers Care Diagrammer And Seamer Name Role Phone Ruthie Hahn MD Primary Care Pro vider Dixie Sutton Unavailable Reason for Visit * Reason Onset Date Comments Medication Question 10/02/2024 Encounter Details Date Type Department Care Team ([facility] st Contact Info) Description 10/02/2024 Telephone [facility] MEDICINE [address] [place] [address] Ruthie Hahn MD [address] [place] [address] Medication Question Social History Tobacco Use Types Packs/Day Years [...] encounter Miscellaneous Notes * Telephone Encounter - Pati Case RN - 10/03/2024 9:03 AM EDT Please review below message from pt. Cashier Payments Received checked [employer]. Pt last picked up a 30 day supply of gabapentin (Neurontin) 600 MG tablet on 12/06/23. Pt last picked up a 30 day supply of gabapentin (Neurontin) 100 MG capsule on 03/23/24. Prescription sent by MILENA Varma on 07/26/24. Pt attempted to have scripts transferred but was advised to have new script sent. TC placed to pharmacy to confirm. They stated that she needs new scripts as it is a controlled medication. Medications pended to PCP to review and advise. Tc from pt requesting medication gabapentin (Neurontin) 100 MG capsule and gabapentin (Neurontin) 600 MG tablet to be sent to [facility] pharmacy instead of the [facility]. Pt attempted pharmacyto pharmacy transfer but pharmacy advised to have new script sent. * Telephone Encounter - Sukhdev Edison - 10/02/2024 4:33 PM EDT Tc from pt requesting medication gabapentin (Neurontin) 100 MG capsule and gabapentin (Neurontin) 600 MG tablet to be sent to [facility] pharmacy instead of the [facility]. Pt attempted pharmacy to pharmacy transfer but pharmacy advised to have new script sent. If any questions you can contact pt at [phone]. documented in this encounter Plan of Treatment Upcoming Encounters Date Type Department Care Team (Late st Contact Info) Description 03/14/2025 11:15 AM EDT Office Visit [facility] MEDICINE [address] [place] [phone] Ruthie Hahn MD [address] [place] [address] [phone] documented as of this encounter Visit Diagnoses Not on filedocumented in this encounter Additional Health Concerns Assessment Noted Time PHQ-9 Depression Total Score: 12 024 11:33 AM EDT documented as of this encounter Care Teams Diagrammer And Seamer Relationship Specialty Start Date End Date Ruthie Hahn MD [address] [place] [address] [phone] PCP - General Internal Medicine 02/21/23 Dixie Sutton Community Health Worker 02/21/24 documented as of this encounter
--- OUTSIDE RECORDS SUMMARY | 2025-02-25 13:52 | XMS_ITS | Encounter Summary ---
Author Organization [employer] Address [address] [place] [address] 7 [place] [address] Care Team Providers Care Apparel Fashion Designer Name Role Phone Ruthie Hahn MD Primary Care Pro vider Dixie Sutton Unavailable Reason for Visit * Reason Onset Date Comments Med Refill 02/13/2024 Encounter Details Date Type Department Care Team (Late st Contact Info) Description 02/13/2024 Refill [facility] MEDICINE [address] [place], [place] [phone] Ruthie Hahn MD [address] [place] [address] Social History Tobacco Use Types Packs/Day Years [...] Description 03/14/2025 11:15 AM EDT Office Visit [facility] MEDICINE [address] [place] [phone] Ruthie Hahn MD [address] [place] [address] [phone] documented as of this encounter Visit Diagnoses Not on filedocumented in this encounter Additional Health Concerns Assessment Noted Time PHQ-9 Depression Total Score: 17 023 9:18 AM EDT documented as of this encounter Care Teams Apparel Fashion Designer Relationship Specialty Start Date End Date Ruthie Hahn MD [address] [place] [phone] PCP - General Internal Medicine 02/21/23 Dixie Sutton Community Health Worker 02/21/24 documented as of this encounter
--- OUTSIDE RECORDS SUMMARY | 2025-02-25 13:52 | XMS_ITS | Encounter Summary ---
Author Organization [employer] Address [address] [place] [address] 7 [place] [address] Care Team Providers Care Statistics Intern Name Role Phone Jean Cohen Primary Care Provider Unavail able Ruthie Hahn MD Primary Care Pro vider Dixie Sutton Unavailable Reason for Visit * Reason Onset Date Comments Referral 09/26/2022 Encounter Details Date Type Department Care Team (Late st Contact Info) Description 09/26/2022 Telephone [facility] MEDICINE [address] [place] [phone] Jean Cohen AGNP Referral Social History Tobacco Use Types Packs/Day Years [...] encounter Miscellaneous Notes * Telephone Encounter - Wellington Wright - 09/26/2022 2:32 PM EDT Tc noemí [place] with [facility] physical therapy requesting a new referral with diagnostics Please contact Christy at [phone] documented in this encounter Plan of Treatment Upcoming Encounters Date Type Department Care Team (Late st Contact Info) Description 03/14/2025 11:15 AM EDT Office Visit [facility] MEDICINE [address] [place] [address] Ruthie Hahn MD [address] [place], [place] [phone] documented as of this encounter Visit Diagnoses Not on filedocumented in this encounter Care Teams Statistics Intern Relationship Specialty Start Date End Date Jean Cohen AGNP PCP - General Family Medicine 09/01/22 02/20/23 Ruthie Hahn MD [address] [place], [place] [phone] PCP - General Internal Medicine 02/21/23 Dixie Sutton Community Health Worker 02/21/24 documented as of this encounter
--- OUTSIDE RECORDS SUMMARY | 2025-02-25 13:52 | XMS_ITS | Encounter Summary ---
Author Organization [employer] Address [address] [place] [address] 7 [place] [address] Care Team Providers Care Translator Interpreter Name Role Phone Ruthie Hahn MD Primary Care Pro vider Dixie Sutton Unavailable Encounter Details Date Type Department Care Team ([facility] st Contact Info) Description 10/03/2024 Orders Only [facility] MEDICINE [address] [place], [place] [phone] Ruthie Hahn MD [address] [place] [address] Social History Tobacco Use Types Packs/Day Years [...] Description 03/14/2025 11:15 AM EDT Office Visit [facility] MEDICINE [address] [place] [address] [phone] Ruthie Hahn MD [address] [place] [address] documented as of this encounter Procedures Procedure Name Priority Date/Time Associated Diagnosis Comments HPV DNA, LOW/HIGH RISK Routine 01/07/2025 3:03 PM EDT PROTEIN, TOTAL AND PROTEIN ELECTROPHORESIS, RANDOM URINE Routine 12/12/2024 11:26 AM EDT documented in this encounter Results * HPV DNA, Low/High Risk (01/07/2025 3:03 PM EDT) HPV High Risk Negative Negative [facility] HPV Genotype 16 Negative Negative [facility] HPV Genotype 18 Negative Negative [facility] Comment:HPV testing performe d at [facility] (CLIA#[id number]), [address] [place] [phone].Testing for HPV was performed using the Deandre KARTHIK 6800system. The presence of HPV in the female [...] PM EDT 01/08/2025 8:30 AM EDT us Irina Michelle [facility] BLOOD ORDERABLES Destinee lagunas Result [facility] [address] [place] [phone] * (ABNORMAL) Protein Electrophoresis and Total Protein, Random Urine (12/12/2024 11:26 AM EDT) [facility]Random Urine Creatinine 29 20 - 275 mg/dL [facility] PEU-Random Urine Protein <4(A) 5 - 24 mg/dL [facility] PEU-[place]terson. Prot/Creat Ratio NOTE 24 - 184 mg/g creat [facility] Comment:THE PROTEIN VALUE IS LESS THAN 4 MG/DLTHEREFORE WE ARE UNABLE TO CALCULATEEXCRETION AND/OR CREATININE RATIO. [facility]-Random Urine Albumin 0 % [facility] PEU-Random Urine A1 Globulin 0 % [facility] PEU-Random Urine A2 Globulin 0 % [facility] PEU-Random Urine Beta Globulin 0 % [facility] PEU-Random Ur. Gamma Globulin 0 % [facility] PEU Ran-Abn Protein Band 1 TNP [facility] PEU Ran-Abn Protein Band 2 TNP [facility] PEU Ran-Abn Protein Band 3 TNP [facility] PEU-Random Urine Interpret. SEE NOTE [facility] Comment:Normal PatternTHIS T EST WAS PERFORMED AT:[employer] [place] [id number] ANTONIO MEJIA MD Protein/Creatinine Ratio NOTE 0.024 - 0.184 [facility] Comment:Result Units: mg/mg creat 12/12/2024 11:2 6 AM EDT 12/12/2024 4:16 PM EDT us Ruthie Clemens MD LAB URINE ORDERAB LES Final Result [facility] [address] [place] [phone] [phone] documented in this encounter Visit Diagnoses Not on filedocumented in this encounter Additional Health Concerns Assessment Noted Time PHQ-9 Depression Total Score: 12 024 11:33 AM EDT documented as of this encounter Care Teams Translator Interpreter Relationship Specialty Start Date End Date Ruthie Hahn MD [address] [place] [address] PCP - General Internal Medicine 02/21/23 Dixie Sutton Community Health Worker 02/21/24 documented as of this encounter
--- OUTSIDE RECORDS SUMMARY | 2025-02-25 13:52 | XMS_ITS | Clinical Summary ---
Author Organization [employer] [facility] Address [address] [place] [address] Care Team Providers Care Manager E Commerce Name Role Phone Unavailable Primary Care Provider [...] of 3 - 19+ 3-dose series) 2011 Cervical Cancer Screening: P ap Smear 01/28/2023 [...] on patient's age to complete this topic Pneumococcal Vaccine: Pediat rics (0 to 5 Years) and At-Risk Patients (6 to 49 Years) Aged Out No longer eligi ble based [...] RESULTING AGENCY - 02/05/2020 12:10 PM EDT [id number] THINPREP PAP, IMAGED: NEGATIVE FOR SQUAMOUS INTRAEPITHELIAL LESION AND MALIGNANCY . REACTIVE CELLULAR CHANGES. CLUE CELLS ARE PRESENT. RON MA(ASCP) (CASE SCREENED 01 31 2020) ROSELIA MEREDITH M.D. , PATHOLOGIST (CASE ELECTRONICALLY SIGNED 02 04 2020) ADEQUACY: SATISFACTORY ENDOCERVICAL/TRANSFORMATION ZONE COMPONENT PRESENT. SOURCE: THINPREP PAP HPV IF ASCUS, CERVICAL, IMAGED CLINICAL INFORMATION: HPV IF DIAGNOSIS OF ASCUS. , LMP 10/26/19, Z12.4 [facility] CYTOLOGY ORDERABLES Final Result HISTORICAL TESTING LAB RESULTING AGENCY from Last 3 Months or Most Recently Relevant to Health Maintenance
== END 2025-02-25 13:06 | disposition home or self-care (01) ==
LOC: HO.NEURO 13:05
PROVIDERS: PCP Student in an Organized Health Care Education/Training Program; Visit Provider Psychiatry & Neurology Neurology
DX: G62.9 Polyneuropathy, unspecified (principal); R25.2 Cramp and spasm; R20.2 Paresthesia of skin
CPT/HCPCS: 95885; 95913

== ENCOUNTER → 2025-02-25 13:09 | Outpatient (BNV) | payer MEDICAID, SELFPAY | PROVIDERS: PCP Student in an Organized Health Care Education/Training Program; Visit Provider Psychiatry & Neurology Neurology | DX: R53.1 Weakness (principal); R20.2 Paresthesia of skin | CPT/HCPCS: 95886; 95913 ==

== ENCOUNTER 2025-03-12 12:55 | Outpatient (REF) | payer MEDICAID, SELFPAY ==
--- NOTE | ~2025-03-12 | MR_ITS ---
EXAMINATION: MR BRAIN WITHOUT AND WITH CONTRAST CLINICAL INFORMATION: Demyelinating disease. COMPARISON: Correlated to prior MRI report from an outside institution dated October 04, 2023 reporting nonenhancing lesions in the supratentorial compartment. TECHNIQUE: Multiplanar, multisequence MRI of the brain was obtained before and after the intravenous administration of 8.0 mL gadolinium based (Gadavist) without reported immediate complications.. FINDINGS: No restricted diffusion. No acute intracranial hemorrhage, mass effect, midline shift, hydrocephalus or herniation. Hendricks-white matter differentiation is normal. There is a 6 mm nonenhancing or restricted diffusion hyperintense T2 FLAIR signal in the subcortical white matter of the left parietal temporal lobes. No signal abnormality in the pericallosal interface. Posterior cranial fossa contents demonstrated old lacunar infarcts in the right cerebellum. Normal position of the cerebellar tonsils. There is a focal 8 mm bandlike shaped intrinsic hyperintense T1 signal in the right petrous apex. Flow-void signal within the main cerebral vessels is normal. Sellar/suprasellar region is normal. Midline structures are intact. No abnormal enhancement in the intra-axial or the extra-axial compartment of the cranium. Small retention cyst, left maxillary sinus. No signal abnormality or gross abnormal enhancement in the optic pathways. 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 MR/MR head/brain wo/w con IMPRESSION: No acute brain abnormality. No abnormal enhancement. Old lacunar infarcts, right cerebellum. Nonspecific 6 mm T2 FLAIR subcortical white matter signal, left temporoparietal. Electronically signed by: Wayne Bates MD 03/12/2025 02:09 PM EDT
--- OUTSIDE RECORDS SUMMARY | 2025-03-12 15:58 | XMS_ITS | Encounter Summary ---
Author Organization [employer] Address [address] [place] [address] 7 [place] [address] Care Team Providers Care Business Analytics Intern Name Role Phone Jean Cohen Primary Care Provider Unavail able Ruthie Hahn MD Primary Care Pro vider Dixie Sutton Unavailable Reason for Visit * Reason Onset Date Comments Referral 09/26/2022 Encounter Details Date Type Department Care Team (Late st Contact Info) Description 09/26/2022 Telephone [facility] MEDICINE [address] [place] [phone] Jean Cohen AGNP Referral Social History Tobacco [...] 2:32 PM EDT Tc noemí [place] with [facility] physical therapy requesting a new referral with diagnostics Please contact Christy at [phone] documented in this encounter Plan of Treatment Upcoming Encounters Date Type Department Care Team (Late st Contact Info) Description 03/14/2025 11:15 AM EDT Office Visit [facility] MEDICINE [address] [place] [address] Ruthie Hhan MD [address] [place], [place] [phone] documented as of this encounter Visit Diagnoses Not on filedocumented in this encounter Care Teams Business Analytics Intern Relationship Specialty Start Date End Date Jean Cohen AGNP PCP - General Family Medicine 09/01/22 02/20/23 Rtuhie Hahn MD [address] [place], [place] [phone] PCP - General Internal Medicine 02/21/23 Dixie Sutton Community Health Worker 02/21/24 documented as of this encounter
--- OUTSIDE RECORDS SUMMARY | 2025-03-12 15:58 | XMS_ITS | Encounter Summary ---
Author Organization [employer] Address [address] [place] [address] Care Team Providers Care Home Visitor Home Base Head Start Name Role Phone Lorraine Soni Primary Care Provider Jean Kim Primary Care Provider Ruthie Santacruz MD Primary Care Pro vider Dixie Sutton Unavailable Encounter Details Date Type Department Care Team (Late Contact Info) Description 08/18/2022 Telephone [facility] MEDICINE [address] [place] [address] [phone] Lorraine Soni FNP Social History Tobacco Use [...] Description 03/14/2025 11:15 AM EDT Office Visit [facility] MEDICINE [address] [place] [address] [phone] Ruthie Hahn MD [address] [place], [place] [phone] documented as of this encounter Visit Diagnoses Not on filedocumented in this encounter Care Teams Home Visitor Home Base Head Start Relationship Specialty Start Date End Date Lorraine Soni FNP PCP - General Family Medicine 06/28/22 08/31/22 Jean Cohen AGNP PCP - General Family Medicine 09/01/22 02/20/23 Ruthie Hahn MD [address] [place] [address] PCP - General Internal Medicine 02/21/23 Dixie Sutton Community Health Worker 02/21/24 documented as of this encounter
--- OUTSIDE RECORDS SUMMARY | 2025-03-12 15:58 | XMS_ITS | Encounter Summary ---
Author Organization [employer] Address [address] [place] [address] 7 [place] [address] Care Team Providers Care Commodities Manager Name Role Phone Ruthie Hahn MD Primary Care Pro vider Dixie Sutton Unavailable Reason for Visit * Reason Onset Date Comments Med Refill 02/13/2024 Encounter Details Date Type Department Care Team (Late st Contact Info) Description 02/13/2024 Refill [facility] MEDICINE [address] [place], [place] [phone] Ruthie Hahn MD [address] [place] [address] Social History Tobacco Use Types Packs/Day Years [...] Description 03/14/2025 11:15 AM EDT Office Visit [facility] MEDICINE [address] [place] [phone] Ruthie Hahn MD [address] [place] [address] [phone] documented as of this encounter Visit Diagnoses Not on filedocumented in this encounter Additional Health Concerns Assessment Noted Time PHQ-9 Depression Total Score: 17 023 9:18 AM EDT documented as of this encounter Care Teams Commodities Manager Relationship Specialty Start Date End Date Ruthie Hahn MD [address] [place] [phone] PCP - General Internal Medicine 02/21/23 Dixie Sutton Community Health Worker 02/21/24 documented as of this encounter
--- OUTSIDE RECORDS SUMMARY | 2025-03-12 15:59 | XMS_ITS | Encounter Summary ---
Author Organization [employer] Address [address] [place] [address] 7t [place] [address] Care Team Providers Care Scarfer Operator Name Role Phone Ruthie Hahn MD Primary Care Pro vider Dixie Sutton Unavailable Reason for Visit * Reason Onset Date Comments Med Refill 12/05/2024 Encounter Details Date Type Department Care Team (Late st Contact Info) Description 12/05/2024 Refill [facility] [address] [place] [address] Jan Kearney DDS [address] [place] [address] Odontalgia; Irreversible pulpitis; Severe dental caries Social [...] Description 03/14/2025 11:15 AM EDT Office Visit [facility] MEDICINE [address] [place] [address] [phone] Ruthie Hahn MD [address] [place], [place] [phone] documented as of this encounter Visit Diagnoses Diagnosis Odontalgia Unspecified disorder of the teeth and supporting structures Irreversible pulpitis Severe dental caries documented in this encounter Additional Health Concerns Assessment Noted Time PHQ-9 Depression Total Score: 12 024 11:33 AM EDT documented as of this encounter Care Teams Scarfer Operator Relationship Specialty Start Date End Date Ruthie Hahn MD [address] [place] [phone] PCP - General Internal Medicine 02/21/23 Dixie Sutton Community Health Worker 02/21/24 documented as of this encounter
--- OUTSIDE RECORDS SUMMARY | 2025-03-12 15:59 | XMS_ITS | Clinical Summary ---
Author Organization [employer] Address [address] [facility] [address] [place] [address] Care Team Providers Care Clay Digger Name Role Phone Ruthie Hahn MD Primary [...] instructions. Ventrogluteal. Bring to office for injection. Q5xuwdr for first two doses, then Q2m after [...] Encounters Date Type Department Care Team Description 03/12/2025 Orders Only [facility] External Provider, [facility] 02/26/2025 Telephone [facility] [address] [place] [address] Ruthie Hahn MD Call back requesting 02/12/2025 Telephone [facility] [address] [place] [address] Adelaida Clement CNM April01/27/2025 9:15 AM EDT Office Visit [facility] [address] [place] [address] Davion, Elen, OD Myopia, bilateral (Primary Dx) 01/14/2025 Telephone [facility] [address] [place] [address] Verenice Travis RN 01/13/2025 Orders Only [facility] [address] [place] [address] Adelaida Clement CNM 01/10/2025 Results Follow-Up [facility] [address] [place] [address] Adelaida Clement CNM STI testing add on (NG, CT, Trich), Creatinine, Serum, Hepatitis C Antibody with Reflex to HCV, RNA, Quantitative, Real-Time PCR, Additional followed-up results: 4 01/07/2025 2:15 PM EDT Procedure Visit [facility] [address] [place] [address] Adelaida Clement CNM Cervical cancer screening (Primary Dx); Screening examination for venereal disease; On terminal clerk drug therapy; Acute vaginitis 01/07/2025 Travel 01/06/2025 Travel 01/06/2025 Telephone [facility] [address] [place] [address] Ruthie Hahn MD Chart Prep 12/23/2024 2:30 PM EDT Office Visit [facility] [address] [place] [address] Orquidea Lafleur, OD Myopia, bilateral (Primary Dx) 12/23/2024 Travel 12/12/2024 10:30 AM EDT Office Visit [facility] [address] [place] [address] Ruthie Hahn MD Neuropathy (Primary Dx); Dietary counseling; Exercise counseling; Bipolar affective disorder, current episode depressed, current episode severity unspecified (CMS/HCC); Well controlled intermittent asthma; Class 1 obesity due to excess calories without serious comorbidity with body mass index (BMI) of 32.0 to 32.9 in adult; Anxiety; Tobacco abuse 12/12/2024 Travel 12/11/2024 Telephone [facility] [address] [place] [phone] Tawnya Davidson MA Chart Prep from Last 3 Months Immunizations Immunization Administration [...] Industry Job Start Date Job End Date [employer] Not on file Not [...] Description 03/14/2025 11:15 AM EDT Office Visit [facility] [address] [place] [phone] Ruthie Hahn MD [address] [place] [phone] Health Maintenance Due Date Last Done Comments Dental Oral Exam 1990 Dental Prophylaxis 1990 Pneumococcal Vaccine: Pediatrics (0 to 5 Years) and At-Risk Patients (6 to 49) Years (1 of 2 - PCV) 2011 HPV Vaccines (2 - 3-dose series) 11/28/2013 10/31/2013 Depression Monitoring 09/03/2024 03/06/2024, 024 SDOH Screening 02/19/2025 02/20/2024 COVID-19 Vaccine ( season) 2025 09/28/2023, 03/02/2023, 05/05/2021, Additional history exists Influenza Vaccine (#1) 2025 05/09/2023, 2017 Dental [...] Procedure Name Priority Date/Time Associated Diagnosis Comments MR BRAIN W AND WO CONTRAST Routine 03/12/2025 1:06 PM EDT POCT WET MOUNT/MARIBEL Routine 01/07/2025 4: 27 PM EDT Acute vaginitis HEPATIC FUNCTION PANEL Routine 01/07/2025 3:08 PM EDT On halfway drug therapy SYPHILIS SCREEN Routine 01/07/2025 3:08 PM EDT Screening examination for venereal disease HIV 1/2 ANTIGEN/ANTIBODY, FOURTH GENERATION W/RFL Routine 01/07/2025 3:08 PM EDT Screening examination for venereal disease HEPATITIS C AB W/REFL TO HCV RNA, QN, PCR Routine 01/07/2025 3:08 PM EDT Screening examination for venereal disease CREATININE, SERUM Routine 01/07/2025 3:0 8 PM EDT On terminal clerk drug therapy CHLAMYDIA/N. GONORRHOEAE AND T. VAGINALIS [...] Recently Relevant to Health Maintenance Results * Mr Brain w/ and w/o Contrast (03/12/2025 1:06 PM EDT) Anatomical Region Laterality Modality Brain Magnetic Resonan ce 03/12/2025 1:06 PM EDT Narrative 03/12/2025 2:12 PM EDT [place] [address] Magnetic Resonance Report Signed Patient: Shyla Torres MR#: [id number] 03 : 1990 Acct:[id number] Age/Sex: 34 / F ADM Date: 03/12/25 Loc: .MRI Attending Dr: Corie Paul MD Ordering Physician: Corie Paul MD Date of Service: 03/12/25 Procedure(s): MR head/brain wo/w con Accession Number(s): [id number] cc: Corie Paul MD; Ruthie Hahn MD Reason for Exam: G37.9 - Demyelinating disease of central nervous system, unspecified EXAMINATION: MR BRAIN WITHOUT AND WITH CONTRAST CLINICAL INFORMATION: Demyelinating disease. COMPARISON: Correlated to prior MRI report from an outside institution dated October 04, 2023 reporting nonenhancing lesions in the supratentorial compartment. TECHNIQUE: Multiplanar, multisequence MRI of the brain was obtained before and after the intravenous administration of 8.0 mL gadolinium based (Gadavist) without reported immediate complications.. FINDINGS: No restricted diffusion. No acute intracranial hemorrhage, mass effect, midline shift, hydrocephalus or herniation. Hendricks-white matter differentiation is normal. There is a 6 mm nonenhancing or restricted diffusion hyperintense T2 FLAIR signal in the subcortical white matter of the left parietal temporal lobes. No signal abnormality in the pericallosal interface. Posterior cranial fossa contents demonstrated old lacunar infarcts in the right cerebellum. Normal position of the cerebellar tonsils. There is a focal 8 mm bandlike shaped intrinsic hyperintense T1 signal in the right petrous apex. Flow-void signal within the main cerebral vessels is normal. Sellar/suprasellar region is normal. Midline structures are intact. No abnormal enhancement in the intra-axial or the extra-axial compartment of the cranium. Small retention cyst, left maxillary sinus. No signal abnormality or gross abnormal enhancement in the optic pathways. 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 MR/MR head/brain wo/w con IMPRESSION: No acute brain abnormality. No abnormal enhancement. Old lacunar infarcts, right cerebellum. Nonspecific 6 mm T2 FLAIR subcortical white matter signal, left temporoparietal. Electronically signed by: Wayne Bates MD 03/12/2025 02:09 PM EDT Dictated By: Wayne Carrera MD Signed By: <Electronically signed by Wayne Leon MD in OV> 03/12/25 1409 DD/ 1306 TD/TT: 03/12/25 1329 Advertising Writer: Procedure Note Donotuseinterpreter, Image - 03/12/2025 [place] [address] Magnetic Resonance Report Signed Patient: Elvie Torres#: [id number] 03 : 1990Acct:[id number] Age/Sex: 34 / FADM Date: 03/12/25 Loc: HO.MRI Attending Dr: Corie Paul MD Ordering Physician: Corie Paul MD Date of Service: 03/12/25 Procedure(s): MR head/brain wo/w con Accession Number(s): [id number] cc: Corie Paul MD; Ruthie Hahn MD Reason for Exam: G37.9 - Demyelinating disease of central nervous system,unspecified EXAMINATION: MR BRAIN WITHOUT AND WITH CONTRAST CLINICAL INFORMATION: Demyelinating disease. COMPARISON: Correlated to prior MRI report from an outside institution dated October 04, 2023 reporting nonenhancing lesions in the supratentorial compartment. TECHNIQUE: Multiplanar, multisequence MRI of the brain was obtained before and after the intravenous administration of 8.0 mL gadolinium based (Gadavist) without reported immediate complications.. FINDINGS: No restricted diffusion. No acute intracranial hemorrhage, mass effect, midline shift, hydrocephalus or herniation. Hendricks-white matter differentiation is normal. There is a 6 mm nonenhancing or restricted diffusion hyperintense T2 FLAIR signal in the subcortical white matter of the left parietal temporal lobes. No signal abnormality in the pericallosal interface. Posterior cranial fossa contents demonstrated old lacunar infarcts in the right cerebellum. Normal position of the cerebellar tonsils. There is a focal 8 mm bandlike shaped intrinsic hyperintense T1 signal in the right petrous apex. Flow-void signal within the main cerebral vessels is normal. Sellar/suprasellar region is normal. Midline structures are intact. No abnormal enhancement in the intra-axial or the extra-axial compartment of the cranium. Small retention cyst, left maxillary sinus. No signal abnormality or gross abnormal enhancement in the optic pathways. 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 MR/MR head/brain wo/w con IMPRESSION: No acute brain abnormality. No abnormal enhancement. Old lacunar infarcts, right cerebellum. Nonspecific 6 mm T2 FLAIR subcortical white matter signal, left temporoparietal. Electronically signed by: Wayne Bates MD 03/12/2025 02:09 PM EDT Dictated By: Wayne Carrera MD Signed By: <Electronically signed by Wayne Leon MDin OV> 03/12/25 1409 DD/ 1306 TD/TT: 03/12/25 1329 Advertising Writer: [facility] External Provider IMG MRI PROCEDURES Final Result * POCT fern test, vaginal fluid manually resulted (01/07/2025 4:27 PM EDT) MARIBEL Prep Positive Comment:pH 5.5, pos whiff, p os clue, neg trich, neg yeast, few wbc Vaginal Fluid Vaginal structure / Unknown 01/07/2025 4:27 PM EDT Result [facility] POINT OF CARE TEST ENTER/ EDIT ORDERABLES Final Result * Syphilis Screen (01/07/2025 3:08 PM EDT) Pathologist [facility] Syphilis Screen Nonreactive Nonreactive [facility] Blood Venous blood specimen / Unknown 01/07/2025 3:08 PM EDT 01/07/2025 5:13 PM EDT Result [facility] LAB BLOOD ORDERABLES Destinee l Result Performing Organization Address [facility]/ZIP Co de Phone Number [facility] [address] [place] [phone] * Creatinine, Serum (01/07/2025 3:08 PM EDT) Pathologist [facility] Creatinine, Serum 0.67 0.5 - 1.4 mg/dL [facility] Estimated Glomerular Filt Rate >60 [facility] Comment:Chronic Kidney Disea se: Estimated GFR < 60 mL/min/1.02e6Qqviwh Kidney Disease: Estimated GFR < 15 mL/min/1.73m2 Blood 01/07/2025 3:08 PM EDT 01/07/2025 5:13 PM EDT Result [facility] LAB BLOOD ORDERABLES Destinee l Result Performing Organization Address City/[facility]/ZIP Co de Phone Number [facility] [address] [place] [phone] * Hepatitis C Antibody with Reflex to HCV, RNA, Quantitative, Real-Time PCR (01/07/2025 3:08 PM EDT) Hepatitis C Antibody Nonreactive Nonreactive [facility] Comment:Antibodies to HCV no t detected; does not exclude early acuteHCV infection. Blood Venous blood specimen / Unknown 01/07/2025 3:08 PM EDT 01/07/2025 5:13 PM EDT [facility] LAB BLOOD ORDERABLES Destinee l Result Performing Organization Address [facility]/ZIP Co de Phone Number [facility] [address] [place] [phone] * HIV-1/2 Antigen and Antibodies, Fourth Generation, with Reflexes (01/07/2025 3:08 PM EDT) HIV AB/AG Nonreactive Nonreactive [facility] Comment:HIV-1 p24 Ag and/or HIV-1/HIV-2 Ab not detected.A test result that is nonreactive does not exclude thepossibility of exposure to or infection with HIV-1 and/orHIV-2. Nonreactive results in this assay for individualswith prior exposure to HIV-1 and/or HIV-2 may be due toantigen and antibody levels that are below the limit ofdetection of this assay.[employer] HIV Ag/Ab Combo assay result andsupplemental assay results should be interpreted inconjunction with the patient's clinical presentation,history and other laboratory results. If the results areinconsistent with clinical evidence, additional testing issuggested to confirm the result. Blood Venous blood specimen / Unknown 01/07/2025 3:08 PM EDT 01/07/2025 5:13 PM EDT [facility] LAB BLOOD ORDERABLES Destinee l Result Performing Organization Address [facility]/ZIP Co de Phone Number [facility] [address] [place] [phone] * Hepatic Function Panel (01/07/2025 3:08 PM EDT) Bilirubin, Total 0.3 0.0 - 1.0 mg/dL [facility] Bilirubin, Direct 0.1 0.0 - 0.5 mg/dL [facility] Aspartate Amino Transferase 22 5 - 31 U/L [facility] Alanine Aminotransferase 15 0 - 31 U/L [facility] Total Protein 6.6 6.5 - 8.0 g/dL [facility] Albumin Level 4.5 3.5 - 5.0 g/dL [facility] Alkaline Phosphatase 52 39 - 117 U/L [facility] Blood Venous blood specimen / Unknown 01/07/2025 3:08 PM EDT 01/07/2025 5:13 PM EDT Adelaida Clement [facility] LAB BLOOD ORDERABLES Destinee lagunas Result [facility] [address] [place] [phone] * STI testing add on (NG, CT, Trich) (01/07/2025 3:03 PM EDT) Pathologist [facility] Trichomonas (NAAT) NOT DETECTED NOT DETECTED [facility] Comment:The analytical perfo rmance characteristics of thisassay have been determined by [employer]. Themodifications have not been cleared or approved bythe FDA. This assay has been validated pursuant to theCLIA regulations and is used for clinical purposes.For additional information, please refer [email or web address]/Trichomonastma(This link is being provided for information/educational purposes only.)THIS TEST WAS PERFORMED AT:[employer] [place] [phone] ANTONIO MEJIA MD CTNG Ref Lab NOT DETECTED NOT DETECTED [facility] NG Ref Lab NOT DETECTED NOT DETECTED [facility] ThinPrep vial Cervix uteri structure / Unknown 01/07/2025 3:03 PM EDT 01/08/2025 8:30 AM EDT Narrative [facility] - 01/10/2025 12:32 AM EDT Collection Date: [id number] by: RASHMI Wright: Cervix Adelaida Clement [facility] CYTOLOGY ORDERABLES F inal Result Performing Organization Address [facility]/ZIP Co de Phone Number [facility] [address] [place] [phone] * HPV DNA, Low/High Risk (01/07/2025 3:03 PM EDT) HPV High Risk Negative Negative [facility] HPV Genotype 16 Negative Negative [facility] HPV Genotype 18 Negative Negative [facility] Comment:HPV testing performe d at [facility] (CLIA#[id number]), [address] [place] [address].Testing for HPV was performed using the Deandre [...] 3:03 PM EDT 01/08/2025 8:30 AM EDT Adelaida Clement [facility] LAB BLOOD ORDERABLES Destinee l Result Performing Organization Address [facility]/ZIP Co de Phone Number [facility] [address] [place] [phone] * Pap Smear (01/07/2025 3:03 PM EDT) Swab Cervix uteri structure / Unknown 01/07/2025 3:03 PM EDT 01/08/2025 8:30 AM EDT [facility] - 01/10/2025 12:53 PM EDT ----- ------- Name: Shyla Torres Age/Sex: 34/F : 1990 Unit#: [id number] Attend Dr: Re01/07/25 Status: PRE REF Location: [facility] Disch: ----- ------- SPEC : [id number] RECD: 01/08/25 STATUS: ROMANA YODER NUM: [id number] KIMI: 01/07/25-1503 [facility] DR: ADELAIDA CLEMENT CNM ENTERED: 01/08/25 SP TYPE: Pap Smr JAQUELIN DR: ORDERED: Pap Smear Interpretation Satisfactory for [...] and HPV testing will be performed at [facility] (CLIA #[id number])[address] [address]. Testing for HPV was performed using the Deandre KARTHIK 6800 system. The presence of HPV in the [...] detected. All professional services are performed by [facility] ([address] [place], [place] [id number]; ; CLIA #[id number]). The PAP Test is a screening procedure with the inherent possibility of both false negative and false positive results. Results should be interpreted in the context of historic and current clinical findings. Reliability of the PAP Test is enhanced by performing the test on a regular repetitive basis. CONTINUED ON NEXT PAGE ----- ------- Name: Shyla Torres Age/Sex: 34/F : 1990 Unit#: [id number] Wily Dr: Re01/07/25 Status: PRE ANA PAULA Location: .[facility] Disch: ----- ------- SPEC : [id number] RECD: 01/08/25 STATUS: ROMANA YODER NUM: [id number] KIMI: 01/07/25-[address]: ADELAIDA CLEMENT CNM ENTERED: 01/08/25-901 SP TYPE: Pap Carlos SEARS DR: ORDERED: Pap Smear ----- ------- Signed (signature on file) RON Guido (ASCP) 01/10/25 1253 ----- ------- END OF REPORT Adelaida Clement [facility] CYTOLOGY ORDERABLES F inal Result [facility] [address] [place] [phone] * (ABNORMAL) Protein Electrophoresis and Total Protein, Random Urine (12/12/2024 11:26 AM EDT) PEU-Random Urine Creatinine 29 20 - 275 mg/dL [facility] PEU-Random Urine Protein <4(A) 5 - 24 mg/dL [facility] PEU-[place]. Prot/Creat Ratio NOTE 24 - 184 mg/g creat [facility] Comment:THE PROTEIN VALUE IS LESS THAN 4 MG/DLTHEREFORE WE ARE UNABLE TO CALCULATEEXCRETION AND/OR CREATININE RATIO. PEU-Random Urine Albumin 0 % [facility] PEU-Random Urine A1 Globulin 0 % [facility] PEU-Random Urine A2 Globulin 0 % [facility] PEU-Random Urine Beta Globulin 0 % [facility] PEU-Random Ur. Gamma Globulin 0 % [facility] PEU Ran-Abn Protein Band 1 TNP [facility] PEU Ran-Abn Protein Band 2 TNP [facility] PEU Ran-Abn Protein Band 3 TNP [facility] PEU-Random Urine Interpret. SEE NOTE [facility] Comment:Normal PatternTHIS T EST WAS PERFORMED AT:[employer] [place] [phone] ANTONIO MEJIA MD Protein/Creatinine Ratio NOTE 0.024 - 0.184 [facility] Comment:Result Units: mg/mg creat 12/12/2024 11:2 6 AM EDT 12/12/2024 4:16 PM EDT Ruthie Clemens MD LAB URINE ORDERAB LES Final Result [facility] [address] [place] [phone] * Lipid Panel, Standard (10/15/2024 11:18 AM EDT) Triglycerides 59 <150 mg/dL [facility] Comment:Desirable Triglyceri de: less than 150 mg/dLBorderline High Triglyceride 150-199 mg/dLHigh Triglyceride: 200-499 mg/dLVery High Triglyceride: greater than or equal to 5OO mg/dL Cholesterol 171 <200 mg/dL [facility] Comment:Desirable Cholestero l: less than 200 mg/dLBorderline High Cholesterol: 200-239 mg/dLHigh Cholesterol: greater than 239 mg/dL LDL Cholesterol Calculated 95 <100 mg/dL [facility] Comment:Desirable LDL: less than 100 mg/dLNear Optimal/Above Optimal LDL: 110- 129 mg/dLBorderline High LDL: 130-159 mg/dLHigh LDL: 160-189 mg/dLVery High LDL: greater than or equal to 190 mg/dL HDL Cholesterol 65 >40 mg/dL [facility] Comment:Desirable HDL: great er than 40 mg/dL Note: This HDL assay may give artificially low results in patients with liver disease. Blood Venous blood specimen / Unknown 10/15/2024 11:18 AM EDT 10/15/2024 1:22 PM EDT Ruthie Clemens MD LAB BLOOD ORDERAB LES Final Result [facility] [address] [place] [phone] from Last 3 Months or Most Recently Relevant to Health Maintenance Insurance [facility] STANDARD DENTAL-[facility] MEDICAID STAND ADULT Care Teams Clay Digger Relationship Specialty Start Date End Date Ruthie Hahn MD [address] [place] [phone] PCP - General Internal Medicine 02/21/23 Dixie Sutton Community Health Worker 02/21/24
--- OUTSIDE RECORDS SUMMARY | 2025-03-12 15:59 | XMS_ITS | Clinical Summary ---
Author Organization [facility] Address [address] [place] [address] Care Team Providers Care Search Marketing Coordinator Name Role Phone Unavailable Primary Care Provider [...] Cancer Screening: P ap Smear 01/28/2023 01/29/2020 Depression Screening 07/03/2024 COVID-19 Vaccine (2 - 2024-2 6 season) 2025 05/05/2021 Influenza Vaccine (#1) 2025 DTaP,Tdap,and Td [...] RESULTING AGENCY - 02/05/2020 12:10 PM EDT [id number] THINPREP PAP, IMAGED: NEGATIVE FOR SQUAMOUS INTRAEPITHELIAL [...]
--- OUTSIDE RECORDS SUMMARY | 2025-03-12 15:59 | XMS_ITS | Encounter Summary ---
Author Organization [employer] Address [address] [place] [address] 7[address] [place] [address] Care Team Providers Care It Security Architect Name Role Phone Ruthie Hahn MD Primary Care Pro vider Dixie Sutton Unavailable Encounter Details Date Type Department Care Team ([facility] st Contact Info) Description 01/10/2025 Results Follow-Up [facility] [address] [place] [address] Irina Michelle, AMMON [address] [place] [address] STI testing add on (NG, CT, Trich), [...] Description 03/14/2025 11:15 AM EDT Office Visit [facility] [address] [place] [address] Ruthie Hahn MD [address] [place], [place] [phone] documented as of this encounter Visit Diagnoses Not on filedocumented in this encounter Additional Health Concerns Assessment Noted Time PHQ-9 Depression Total Score: 12 024 11:33 AM EDT documented as of this encounter Care Teams It Security Architect Relationship Specialty Start Date End Date Ruthie Hahn MD [address] [place], [place] [phone] PCP - General Internal Medicine 02/21/23 Dixie Sutton Community Health Worker 02/21/24 documented as of this encounter
--- OUTSIDE RECORDS SUMMARY | 2025-03-12 15:59 | XMS_ITS | Encounter Summary ---
Author Organization [employer] Address [address] [facility] 7t [place] [address] Care Team Providers Care Freight Representative Name Role Phone Ruthie Hahn MD Primary Care Pro vider Dixie Sutton Unavailable Encounter Details Date Type Department Care Team (Late st Contact Info) Description 03/12/2025 Orders Only [facility] External Provider, [facility] Social History Tobacco Use Types Packs/Day Years [...] Description 03/14/2025 11:15 AM EDT Office Visit [facility] MEDICINE [address] [place] [address] [phone] Ruthie Hahn MD [address] [place], [place] [phone] documented as of this encounter Procedures Procedure Name Priority Date/Time Associated Diagnosis Comments MR BRAIN W AND WO CONTRAST Routine 03/12/2025 1:06 PM EDT documented in this encounter Results * Mr Brain w/ and w/o Contrast (03/12/2025 1:06 PM EDT) Anatomical Region Laterality Modality Brain Magnetic Resonan ce 03/12/2025 1:06 PM EDT Narrative 03/12/2025 2:12 PM EDT [address] [address] Magnetic Resonance Report Signed Patient: Shyla Torres MR#: [id number] [birth year] : 1990 Acct:[id number] Age/Sex: 34 / F ADM Date: 03/12/25 Loc: HO.MRI Attending Dr: Corie Paul MD Ordering Physician: Corie Paul MD Date of Service: 03/12/25 Procedure(s): MR head/brain wo/w con Accession Number(s): [id number] cc: Corie Paul MD; Ruthie Hahn MD [...] 03/12/25 1409 DD/ 1306 TD/TT: 03/12/25 1329 Extras Casting Director: Procedure Note Donotuseinterpreter, Image - 03/12/2025 [place] [address] Magnetic Resonance Report Signed Patient: Elvie Torres#: [id number] 03 : 1990Acct:[id number] Age/Sex: 34 / FADM Date: 03/12/25 Loc: HO.MRI Attending Dr: Corie Paul MD Ordering Physician: Corie Paul MD Date of Service: 03/12/25 Procedure(s): MR head/brain wo/w con Accession Number(s): [id number] cc: Corie Paul MD; Ruthie Hahn MD [...] Wayne Bates MD 03/12/2025 02:09 PM EDT RP Dictated By: Wayne Carrera MD Signed By: <Electronically signed by Wayne Leon MDin OV> 03/12/25 1409 DD/ 1306 TD/TT: 03/12/25 1329 Extras Casting Director: [facility] External Provider IMG MRI PROCEDURES Final Result documented in this encounter Visit Diagnoses Not on filedocumented in this encounter Additional Health Concerns Assessment Noted Time PHQ-9 Depression Total Score: 12 024 11:33 AM EDT documented as of this encounter Care Teams Freight Representative Relationship Specialty Start Date End Date Ruthie Hahn MD [address] [place] [phone] PCP - General Internal Medicine 02/21/23 Dixie Sutton Community Health Worker 02/21/24 documented as of this encounter
--- OUTSIDE RECORDS SUMMARY | 2025-03-12 15:59 | XMS_ITS | Encounter Summary ---
Author Organization [employer] Address [address] [place] [address] 7 [place] [address] Care Team Providers Care Creasing And Cutting Press Feeder Name Role Phone Ruthie Hahn MD Primary Care Pro vider Dixie Sutton Unavailable Reason for Visit * Reason Onset Date Comments Nurse Triage 02/12/2024 Encounter Details Date Type Department Care Team ([facility] st Contact Info) Description 02/12/2024 Telephone [facility] MEDICINE [address] [place] [address] Ruthie Hahn MD [address] [place] [address] Nurse Triage Social History Tobacco Use Types [...] Description 03/14/2025 11:15 AM EDT Office Visit [facility] MEDICINE [address] [place] [address] Ruthie Hahn MD [address] [place] [phone] documented as of this encounter Visit Diagnoses Not on filedocumented in this encounter Additional Health Concerns Assessment Noted Time PHQ-9 Depression Total Score: 17 023 9:18 AM EDT documented as of this encounter Care Teams Creasing And Cutting Press Feeder Relationship Specialty Start Date End Date Ruthie Hahn MD [address] [place] [phone] PCP - General Internal Medicine 02/21/23 Dixie Sutton Community Health Worker 02/21/24 documented as of this encounter
--- OUTSIDE RECORDS SUMMARY | 2025-03-12 15:59 | XMS_ITS | Encounter Summary ---
Author Organization [employer] Address [address] [place] [address] 7 [place] [address] Care Team Providers Care Lab Animal Technician Name Role Phone Ruthie Hahn MD Primary Care Pro vider Dixie Sutton Unavailable Encounter Details Date Type Department Care Team ([facility] st Contact Info) Description 10/03/2024 Orders Only [facility] MEDICINE [address] [place], [place] [phone] Ruthie Hahn MD [address] [place] [address] Social History Tobacco Use Types Packs/Day Years [...] 11:15 AM EDT Office Visit [facility] MEDICINE [address] [place] [address] [phone] Ruthie Hahn MD [address] [place] [address] documented as of this encounter Procedures Procedure Name Priority Date/Time Associated Diagnosis Comments HPV DNA, LOW/HIGH RISK Routine 01/07/2025 3:03 PM EDT PROTEIN, TOTAL AND PROTEIN ELECTROPHORESIS, RANDOM URINE Routine 12/12/2024 11:26 AM EDT documented in this encounter Results * HPV DNA, Low/High Risk (01/07/2025 3:03 PM EDT) HPV High Risk Negative Negative [facility] HPV Genotype 16 Negative Negative [facility] HPV Genotype 18 Negative Negative [facility] Comment:HPV testing performe d at [facility] (CLIA#[id number]), [address] [place] [phone].Testing for HPV was performed using the Deandre [...] 01/08/2025 8:30 AM EDT us Irina Michelle [facility] LAB BLOOD ORDERABLES Destinee lagunas Result [facility] [address] [place] [phone] * (ABNORMAL) Protein Electrophoresis and Total Protein, Random Urine (12/12/2024 11:26 AM EDT) PEU-Random Urine Creatinine 29 20 - 275 mg/dL [facility] PEU-Random Urine Protein <4(A) 5 - 24 mg/dL [facility] PEU-[place]. Prot/Creat Ratio NOTE 24 - 184 mg/g creat [facility] Comment:THE PROTEIN VALUE IS LESS THAN 4 MG/DLTHEREFORE WE ARE UNABLE TO CALCULATEEXCRETION AND/OR CREATININE RATIO. PEU-Random Urine Albumin 0 % [facility] PEU-Random Urine A1 Globulin 0 % [facility] PEU-Random Urine A2 Globulin 0 % [facility] PEU-Random Urine Beta Globulin 0 % [facility] PEU-Random Ur. Gamma Globulin 0 % [facility] PEU Ran-Abn Protein Band 1 TNP [facility] PEU Ran-Abn Protein Band 2 TNP [facility] PEU Ran-Abn Protein Band 3 TNP [facility] PEU-Random Urine Interpret. SEE NOTE [facility] Comment:Normal PatternTHIS T EST WAS PERFORMED AT:[employer] [place] [phone] ANTONIO MEJIA MD Protein/Creatinine Ratio NOTE 0.024 - 0.184 [facility] Comment:Result Units: mg/mg creat 12/12/2024 11:2 6 AM EDT 12/12/2024 4:16 PM EDT us Ruthie Clemens MD LAB URINE ORDERAB LES Final Result [facility] [address] [place] [phone] documented in this encounter Visit Diagnoses Not on filedocumented in this encounter Additional Health Concerns Assessment Noted Time PHQ-9 Depression Total Score: 12 024 11:33 AM EDT documented as of this encounter Care Teams Lab Animal Technician Relationship Specialty Start Date End Date Ruthie Hahn MD [address] [place] [address] PCP - General Internal Medicine 02/21/23 Dixie Sutton Community Health Worker 02/21/24 documented as of this encounter
--- OUTSIDE RECORDS SUMMARY | 2025-03-12 15:59 | XMS_ITS | Encounter Summary ---
Author Organization [employer] Address [address] [place] [address] 7 [place] [address] Care Team Providers Care Wood Treating Inspector Name Role Phone Ruthie Hahn MD Primary Care Pro vider Dixie Sutton Unavailable Reason for Visit * Reason Onset Date Comments Medication Question 10/02/2024 Encounter Details Date Type Department Care Team ([facility] st Contact Info) Description 10/02/2024 Telephone [facility] MEDICINE [address] [place] [address] Ruthie Hahn MD [address] [place] [address] Medication Question Social History Tobacco Use Types [...] EDT Please review below message from pt. 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 Pt last picked up a [...] 600 MG tablet to be sent to [facility] instead of the [facility]. Pt attempted pharmacyto pharmacy transfer but pharmacy advised to have new script sent. * Telephone Encounter - Sukhdev Edison - 10/02/2024 4:33 PM EDT Tc from pt requesting medication gabapentin (Neurontin) 100 MG capsule and gabapentin (Neurontin) 600 MG tablet to be sent to [facility] pharmacy instead of the [facility]. Pt attempted pharmacy to pharmacy transfer but pharmacy advised to have new script sent. If any questions you can contact pt at [phone]. documented in this encounter Plan of Treatment Upcoming Encounters Date Type Department Care Team (Late st Contact Info) Description 03/14/2025 11:15 AM EDT Office Visit [facility] MEDICINE [address] [place] [address] Ruthie Hahn MD [address] [place] [address] [phone] documented as of this encounter Visit Diagnoses Not on filedocumented in this encounter Additional Health Concerns Assessment Noted Time PHQ-9 Depression Total Score: 12 024 11:33 AM EDT documented as of this encounter Care Teams Wood Treating Inspector Relationship Specialty Start Date End Date Ruthie Hahn MD [address] [place] [address] [phone] PCP - General Internal Medicine 02/21/23 Dixie Sutton Community Health Worker 02/21/24 documented as of this encounter
== END 2025-03-12 12:56 | disposition home or self-care (01) ==
LOC: HO.MRI 12:55
PROVIDERS: PCP Student in an Organized Health Care Education/Training Program; Visit Provider Psychiatry & Neurology Neurology
DX: G37.9 Demyelinating disease of central nervous system, unspecified (principal)
CPT/HCPCS: 70553; A9585

== ENCOUNTER → 2025-03-12 13:03 | Outpatient (BNV) | payer MEDICAID, SELFPAY | PROVIDERS: PCP Student in an Organized Health Care Education/Training Program; Visit Provider Radiology Diagnostic Radiology | DX: I63.89 Other cerebral infarction (principal); R90.82 White matter disease, unspecified | CPT/HCPCS: 70553 ==

== ENCOUNTER 2025-03-25 15:43 | Outpatient (AMB) | payer MEDICAID, SELFPAY ==
--- NOTE | 2025-03-25 15:45 | MHC.OFFVIS ---
Intake Visit Reasons: MRI review. Discuss results Allergies No Known Allergies Allergy (Verified 01/23/23 11:33) HPI Comments Details: This is a 33-year-old woman who first developed what sound like Raynaud's phenomena in her hands about 3 years ago. Throughout the day her fingers go numb off and on, and feel swollen. They also hurt opening a bottle. Legs go tingly and go till she moves and changes position. Gets a lot of cramping in toes. When exposed to cold,her hands would become very cold and pale and numb at the fingertips. After that, she started having more periods of numbness in the right hand, mostly the middle 3 fingers and to a lesser degree in the left hand. After that she developed brief periods of electrical shocklike sensation in the right leg and calf and thigh. During which time she cannot walk. She has chronic low back pain. The shocklike pains last about 20 min. and it for a few days a week. She has no symptoms the left lower extremity. She's also been getting frequent headaches 3-4 times a week without any triggers. She had an MRI of the brain on 10/04/23 that showed a left temporal subcortical white matter 6 mm lesion and a few other punctate subcortical lesions bilaterally and some periventricular lesions. 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 Nerve conduction studies of the lower extremities on 06/07/21 were normal except for absent right H-reflex. 11/21/23 showed mild to moderately severe sensorimotor axonal and demyelinating peripheral neuropathy. She also complains of occasional pains in the shoulder and neck. Labs for neuropathy were normal. No change in symptoms. [facility] Medical History (Updated 03/25/25 @ 16:04 by Corie Paul MD) Lumbar disc disease Cerebral microvascular disease Peripheral neuropathy Chronic neck and back pain Well controlled intermittent asthma Seasonal allergic rhinitis Obesity Glossodynia Chronic low back pain Bipolar affective disorder, current episode depressed History of COVID-19 External hemorrhoids with complication Anxiety Asthma Surgical History Hx of dilation and curettage Tubal ligation status Hx of section Social History Alcohol intake: current Alcohol intake frequency: holidays/special occasions only Alcohol type: hard liquor Patient Tobacco Use Status: Current everyday Tobacco user Tobacco use type: Cigarette Cigarettes Per Day: 6 Substance Use Type: Marijuana Female Reproductive History Menstrual Age of Menarche: 12 Review of Systems Const Details: Sleep:? Difficulty getting to sleep?admits.? Difficulty maintaining sleep?admits.? Urge to move legs?denies.? Teeth grinding?denies.? Shouting or Kicking during sleep?denies.? Abnormal behavior during sleep?denies.? Excessive sleep?denies.? Snoring?denies.? Daytime sleepiness?denies.? ?? General/Constitutional:? Change in appetite?denies.? Chills?denies.? Fatigue?admits.? Fever?denies.? Weight gain?admits.? Weight loss?admits.? ?? Ophthalmologic:? Blurred vision?admits.? Diminished visual acuity?denies.? ?? ENT:? Stuffiness?denies.? Decreased hearing?denies.? Dry mouth?denies.? Ear pain?denies.? Nosebleed?denies.? Ringing in the ears?denies.? Sinus pain?admits.? Sore throat?denies.? Swollen glands?denies.? ?? Endocrine:? Cold intolerance?denies.? Excessive thirst?admits.? Frequent urination?denies.? Heat intolerance?admits.? ?? Respiratory:? Shortness of breath?denies.? Chest pain?denies.? Cough?denies.? ?? Breast:? Breast lump?denies.? Nipple discharge?denies.? ?? Cardiovascular:? Chest pain at rest?admits.? Chest pain with exertion?denies.? Claudication?denies.? Dizziness?denies.? Fluid accumulation in the legs?admits.? Irregular heartbeat?denies.? Palpitations?denies.? ?? Gastrointestinal:? Abdominal pain?denies.? Constipation?denies.? Diarrhea?denies.? Difficulty swallowing?denies.? Heartburn?denies.? Nausea?admits.? Rectal bleeding?denies.? ?? Hematology:? Easy bruising?denies.? Prolonged bleeding?denies.? ?? Genitourinary:? Frequent urination?denies.? Urgency?denies.? Incontinence?denies.? Erectile Dysfunction?denies.? ?? Musculoskeletal:? Neck pain?admits.? Back pain?admits.? Muscle aches?admits.? Painful joints?admits.? Sciatica?denies.? Weakness?denies.? ?? Podiatric:? Difficulty walking?denies.? Foot numbness?denies.? ?? Neurologic:? Difficulty swallowing?denies.? Balance difficulty?denies.? Coordination?normal.? Difficulty speaking?denies.? Dizziness?admits.? Fainting?denies.? Gait abnormality?denies.? Headache?admits.? Loss of strength?denies.? Loss of use of extremity?denies.? Low back pain?denies.? Memory loss?admits.? Seizures?denies.? Tics?denies.? Tingling/Numbness?denies.? Transient loss of vision?denies.? Tremor?admits.? ?? Psychiatric:? Anxiety?admits.? Auditory/visual hallucinations?denies.? Delusions?excessive anger, agitation.? Depressed mood?admits.? Stressors?denies.? Substance abuse?denies.? Suicidal thoughts?denies.? ?? Physical Exam Neuro Other: Neurological: ? Abnormal neurological findings:??none.? Mental Status:?alert and oriented X 3,?Normal attention, orientation, memory and affect.? Cranial Nerves:?Pupils are equal, round and reactive to light. Fundoscopy shows normal disc bilaterally. External occular muscles are intact. Visual gomez are full, no ptosis. Face is symmetrical, no facial weakness or droop. Facial sensations are normal. Tongue protrudes in midline. Palate elevates symmetrically. Shoulder shrugging is normal..? Motor Examination:?Normal muscle tone, bulk and strength,?No atrophy or fasciculations,?No drift of the extended upper extremities,?Deep tendon reflexes are 0-1+?,?Plantars are flexor?.? Motor Strength:? Proximal Muscles (out of 5): ?5 ? Distal Muscles (out of 5): ?5 ? Neck Flexors (out of 5): ?5 ? Neck Extensors (out of 5): ?5 ? Deltoid (out of 5): ?5 ? Biceps (out of 5): ?5 ? Triceps (out of 5): ?5 ? Serratus Anterior (out of 5): ?5 ? Wrist Extensors (out of 5): ?5 ? APB (out of 5): ?5 ? Finger Spread (out of 5): ?5 ? Ileopsoas (out of 5): ?5 ? Quadriceps (out of 5): ?5 ? Hamstrings (out of 5): ?5 ? Tibialis Anterior (out of 5): ?5 ? Peronei (out of 5): ?5 ? EDB (out of 5): ?5 ? Gastrocnemius (out of 5): ?5 ? Straight Leg Raising:?90 degrees.? Sensory Exam:?Normal light touch, temperature, pinprick, vibration and joint-position sensations?,?Rhomberg sign is absent.? Coordination:?no ataxia,?no titubation,?kxpuxj-qf-smkv, abjr-azfq-jskj test and rapid alternating movements were normal.? Gait Exam:?Within normal limits.? Cerebellar Signs:?Cdwofi-dv-ijct and bzqm-by-wmve is normal,?no dysdiadochokinesia?.? Extrapyramidal System:?No tremor, rigidity with normal facial expressions,?No bradykinesia, no bradyphrenia. Normal arm swing and posture. No propulsion or retropulsion.? Speech:?Normal,?no dysphasia or dysarthria..? Mini Mental Status Exam: ? Level of Consciousness:?Alert.? Orientation:?Knows correct year, month, date, day and season,?Knows correct city, county and state. Knows correct location and floor.? Registration:?Able to register 3 objects.? Attention:?Serial 7's performed accurately.? Recall:?Able to recall 3 out of 3 objects.? Language:?Normal spontaneous speech, fluency, repetition,naming, comprehension, reading and writing.? Total Score:?30/30.? General Examination: ? GENERAL APPEARANCE:?normal,?in no acute distress.? HEAD:?normocephalic,?atraumatic.? EYES:?sclera non-icteric,?conjunctiva clear.? EARS:?auditory canal clear,?tympanic membrane intact, clear.? NOSE:?no lesions.? ORAL CAVITY:?gums normal,?mucosa moist,?no lesions.? THROAT:?clear.? NECK/THYROID:?no cervical lymphadenopathy,?thyroid normal,?neck supple, full range of motion,?no carotid bruit.? SKIN:?no rashes,?no significant birthmarks.? HEART:?S1, S2 normal,?no murmurs.? LUNGS:?clear anteriorly and posteriorly.? CHEST:?no gross rib deformity,?clear to auscultation.? BACK:?normal exam of spine.? EXTREMITIES:?no edema.? PERIPHERAL PULSES:?normal.? PSYCH:?alert, oriented,?cognitive function intact,?cooperative with exam.? Results Reviewed Results Reviewed: Mar 2025; MRI No acute brain abnormality.No abnormal enhancement.Old lacunar infarcts, right cerebellum.Nonspecific 6 mm T2 FLAIR subcortical white matter signal, left temporoparietal. 02/25/25 NCV/EMG: Normal motor and sensory nerve conduction velocities in the upper and lower extremities, except for borderline prolonged distal motor latencies in the lower extremities. Normal EMG of the right C5-T1, and left L4-S1 innervated muscles. Assessment & Plan Assessment & Plan (1) Demyelinating disease of central nervous system: Comment: possible. single left temporal perivent lesion 6mm and some subtle pinpoint hyperintensities. Code(s): G37.9 - Demyelinating disease of central nervous system, unspecified Category: Medical Plan Patient has been reassured. Nothing further to be done from my perspective. She should see a chief librarian extension department because of multiple Sx and Raynaud's Coding Level of Care Code Est Pt Level 4 (73277) Diagnoses Demyelinating disease of central nervous system G37.9
--- OUTSIDE RECORDS SUMMARY | 2025-03-25 18:25 | XMS_ITS | Encounter Summary ---
Author Organization [employer] Address [address] [place] [address] Care Team Providers Care Divisional Merchandising Manager Name Role Phone Ruthie Hahn MD Primary Care Pro vider Dixie Sutton Unavailable Reason for Visit * Reason Onset Date Comments Nurse Triage 02/12/2024 Encounter Details Date Type Department Care Team ([facility] st Contact Info) Description 02/12/[address] [facility] MEDICINE [address] [place], [place] [phone] Ruthie Hahn MD [address] [place] [address] Nurse Triage Social History Tobacco Use Types [...] is your housing situation today? I have denyskailash noble 04/17/[address] you li [...] documented in this encounter Plan of Treatment Not on file documented as of this encounter Visit Diagnoses Not on filedocumented in this encounter Additional Health Concerns Assessment Noted Time PHQ-9 Depression Total Score: 17 023 9:18 AM EDT documented as of this encounter Care Teams Divisional Merchandising Manager Relationship Specialty Start Date End Date Ruthie Hahn MD [address] [place] [phone] PCP - General Internal Medicine 02/21/23 Dixie Sutton Community Health Worker 02/21/24 documented as of this encounter
--- OUTSIDE RECORDS SUMMARY | 2025-03-25 18:25 | XMS_ITS | Encounter Summary ---
Author Organization [employer] Address [address] [place] [address] Care Team Providers Care Lens Coater Name Role Phone Ruthie Hahn MD Primary Care Pro vider Dixie Sutton Unavailable Reason for Visit * Reason Onset Date Comments Med Refill 02/13/2024 Encounter Details Date Type Department Care Team (Late st Contact Info) Description 02/13/2024 Refill [facility] MEDICINE [address] [place] [address] Ruthie Hahn MD [address] [place] [address] Social History Tobacco Use Types Packs/Day Years [...] as of this encounter Plan of Treatment Not on file documented as of this encounter Visit Diagnoses Not on filedocumented in this encounter Additional Health Concerns Assessment Noted Time PHQ-9 Depression Total Score: 17 023 9:18 AM EDT documented as of this encounter Care Teams Lens Coater Relationship Specialty Start Date End Date Ruthie Hahn MD [address] [place] [phone] PCP - General Internal Medicine 02/21/23 Dixie Sutton Community Health Worker 02/21/24 documented as of this encounter
--- OUTSIDE RECORDS SUMMARY | 2025-03-25 18:25 | XMS_ITS | Encounter Summary ---
Author Organization [employer] Address [address] [facility] [address] [address] Care Team Providers Care Chief Credit Officer Name Role Phone Jean Cohen Primary Care Provider Unavail able Ruthie Hahn MD Primary Care Pro vider Dixie Sutton Unavailable Reason for Visit * Reason Onset Date Comments Referral 09/26/2022 Encounter Details Date Type Department Care Team (Late st Contact Info) Description 09/26/2022 Telephone [facility] MEDICINE [address] [place] [address] Jean Cohen AGNP Referral Social History Tobacco [...] Industry Job Start Date Job End Date [employer] Not on file Not on file Not on file documented as of this encounter Miscellaneous Notes * Telephone Encounter - Wellington Wright - 09/26/2022 2:32 PM EDT Tc noemí Harrison with [facility] physical therapy requesting a new referral with diagnostics Please contact Christy at [phone] documented in this encounter Plan of Treatment Not on file documented as of this encounter Visit Diagnoses Not on filedocumented in this encounter Care Teams Chief Credit Officer Relationship Specialty Start Date End Date Jean Cohen AGNP PCP - General Family Medicine 09/01/22 02/20/23 Ruthie Hahn MD [address] [place] [phone] PCP - General Internal Medicine 02/21/23 Dixie Sutton Community Health Worker 02/21/24 documented as of this encounter
--- OUTSIDE RECORDS SUMMARY | 2025-03-25 18:25 | XMS_ITS | Encounter Summary ---
Author Organization [employer] Address 75 [facility] [address] [address] Care Team Providers Care Digital Operations Analyst Name Role Phone Lorraine Soni Primary Care Provider Jean Kim Primary Care Provider Unavail able Ruthie Hahn MD Primary Care Pro vider Dixie Sutton Unavailable Encounter Details Date Type Department Care Team (Late st Contact Info) Description 08/18/[address] [facility] MEDICINE [address] [place] [phone] Lorraine Soni FNP Social History Tobacco Use [...] on filedocumented in this encounter Care Teams Digital Operations Analyst Relationship Specialty Start Date End Date Lorraine Soni FNP PCP - General Family Medicine 06/28/22 08/31/22 Jean Cohen AGNP PCP - General Family Medicine 09/01/22 02/20/23 Ruthie Hahn MD [address] [place] [phone] PCP - General Internal Medicine 02/21/23 Dixie Sutton Community Health Worker 02/21/24 documented as of this encounter
--- OUTSIDE RECORDS SUMMARY | 2025-03-25 18:26 | XMS_ITS | Encounter Summary ---
Author Organization [employer] Address [address] [place] [address] Care Team Providers Care Washcoat Wiper Name Role Phone Ruthie Hahn MD Primary Care Pro vider Dixie Sutton Unavailable Reason for Visit * Reason Onset Date Comments Medication Question 10/02/2024 Encounter Details Date Type Department Care Team ([facility] st Contact Info) Description 10/02/2024 Telephone [facility] MEDICINE [address] [place], [place] [phone] Ruthie Hahn MD [address] [place], [place] [phone] Medication Question Social History Tobacco Use Types [...] Industry Job Start Date Job End Date [employer] Not on file Not on file Not on file documented as of this encounter Miscellaneous Notes * Telephone Encounter - Pati Case RN - 10/03/2024 9:03 AM EDT Please review below message from pt. 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 Pt last picked up a [...] 600 MG tablet to be sent to [facility] Pt attempted pharmacyto pharmacy transfer but pharmacy advised to have new script sent. * Telephone Encounter - Sukhdev Hogan - 10/02/2024 4:33 PM EDT Tc from pt requesting medication gabapentin (Neurontin) 100 MG capsule and gabapentin (Neurontin) 600 MG tablet to be sent to [facility]. Pt attempted pharmacy to pharmacy transfer but pharmacy advised to have new script sent. If any questions you can contact pt at [phone]. documented in this encounter Plan of Treatment Not on file documented as of this encounter Visit Diagnoses Not on filedocumented in this encounter Additional Health Concerns Assessment Noted Time PHQ-9 Depression Total Score: 12 024 11:33 AM EDT documented as of this encounter Care Teams Washcoat Wiper Relationship Specialty Start Date End Date Ruthie Hahn MD [address] [place] [phone] PCP - General Internal Medicine 02/21/23 Dixie Sutton Community Health Worker 02/21/24 documented as of this encounter
--- OUTSIDE RECORDS SUMMARY | 2025-03-25 18:26 | XMS_ITS | Clinical Summary ---
Author Organization [employer] Address 75 [facility] 7[place] [address] Care Team Providers Care Paint Striping Machine Operator Name Role Phone Ruthie Hahn MD [...] instructions. Ventrogluteal. Bring to office for injection. N1yagtm for first two doses, then Q2m after [...] Encounters Date Type Department Care Team Description 03/14/2025 Telephone [facility] MEDICINE [address] [place] [address] Ruthie Hahn MD Results 03/14/2025 Travel 03/12/2025 Orders Only [facility] External Provider, [facility] 02/26/2025 Telephone [facility] MEDICINE [address] [place] [address] Ruthie Hahn MD Call back requesting 02/12/2025 Telephone [facility] MEDICINE [address] [place] [address] Adelaida Clement CNM April01/27/2025 9:15 AM EDT Office Visit [facility] OPTOMETRY [address] [place] [address] Elen Ricardo, OD Myopia, bilateral (Primary Dx) 01/14/2025 Telephone [facility] MEDICINE [address] [place] [address] Verenice Travis RN 01/13/2025 Orders Only [facility] MEDICINE [address] [place] [address] Adelaida Clement CNM 01/10/2025 Results Follow-Up [facility] MEDICINE [address] [place] [address] Adelaida Clement CNM STI testing add on (NG, CT, Trich), Creatinine, Serum, Hepatitis C Antibody with Reflex to HCV, RNA, Quantitative, Real-Time PCR, Additional followed-up results: 4 01/07/2025 2:15 PM EDT Procedure Visit [facility] MEDICINE [address] [place] [address] Adelaida Clement CNM Cervical cancer screening (Primary Dx); Screening examination for venereal disease; On continuous churn buttermaker drug therapy; Acute vaginitis 01/07/2025 Travel 01/06/2025 Travel 01/06/2025 Telephone [facility] MEDICINE [address] [place] [address] Ruthie Hahn MD Chart Prep 12/23/2024 2:30 PM EDT Office Visit [facility] OPTOMETRY [address] [place] [address] Orquidea Lafleur, OD Myopia, bilateral (Primary Dx) 12/23/2024 Travel from Last 3 Months Immunizations Immunization Administration [...] 01/07/2025 2:45 PM EDT Plan of Treatment Health Maintenance [...] PM EDT POCT WET MOUNT/MARIBEL Routine 01/07/2025 4 :27 PM EDT Acute vaginitis HEPATIC FUNCTION PANEL Routine 01/07/2025 3:08 PM EDT On half-way drug therapy SYPHILIS SCREEN Routine 01/07/2025 3:08 PM EDT Screening examination for venereal disease HIV 1/2 ANTIGEN/ANTIBODY, FOURTH GENERATION W/RFL Routine 01/07/2025 3:08 PM EDT Screening examination for venereal disease HEPATITIS C AB W/REFL TO HCV RNA, QN, PCR Routine 01/07/2025 3:08 PM EDT Screening examination for venereal disease CREATININE, SERUM Routine 01/07/2025 3:0 8 PM EDT On half-way drug therapy CHLAMYDIA/N. GONORRHOEAE AND T. VAGINALIS RNA, QUAL,TMA Routine 01/07/2025 3:03 PM EDT Screening examination for venereal disease PAP SMEAR Routine 01/07/2025 3:03 PM EDT Cervical cancer screening HPV DNA, LOW/HIGH RISK Routine 01/07/2025 3:03 PM EDT LIPID PANEL, STANDARD Routine 10/15/2024 11:18 [...] PM EDT Narrative 03/12/2025 2:12 PM EDT [address] [address] Magnetic Resonance Report Signed Patient: Shyla Torres MR#: [id number] [birth year] : 1990 Acct:[id number] Age/Sex: 34 / F ADM Date: 03/12/25 Loc: HO.MRI Attending Dr: Corie Paul MD Ordering Physician: Corie Paul MD Date of Service: 03/12/25 Procedure(s): MR head/brain wo/w con Accession Number(s): [id number] cc: Corie Paul MD; Ruthie Hahn MD [...] 03/12/25 1409 DD/ 1306 TD/TT: 03/12/25 1329 Service Coordinator: Procedure Note Donotuseinterpreter, Image - 03/12/2025 [place] [address] Magnetic Resonance Report Signed Patient: Elvie Torres#: [id number] 03 : 1990Acct:[id number] Age/Sex: 34 / FADM Date: 03/12/25 Loc: HO.MRI Attending Dr: Corie Paul MD Ordering Physician: Corie Paul MD Date of Service: 03/12/25 Procedure(s): MR head/brain wo/w con Accession Number(s): [id number] cc: Corie Paul MD; Ruthie Hahn MD [...] 03/12/25 1409 DD/ 1306 TD/TT: 03/12/25 1329 Service Coordinator: [facility] External Provider IMG MRI PROCEDURES Final [...] Syphilis Screen (01/07/2025 3:08 PM EDT) Pathologist [facility] Syphilis Screen Nonreactive Nonreactive [facility] Blood Venous blood specimen / Unknown 01/07/2025 3:08 PM EDT 01/07/2025 5:13 PM EDT Adelaida Clement CNM LAB BLOOD ORDERABLES Destinee l Result Performing Organization Address [facility] Co de Phone Number [facility] [address] [place] [phone] * Creatinine, Serum (01/07/2025 3:08 PM EDT) Creatinine, Serum 0.67 0.5 - 1.4 mg/dL [facility] Estimated Glomerular Filt Rate >60 [facility] Comment:Chronic Kidney Disea se: Estimated GFR < 60 mL/min/1.55w3Cjllar Kidney Disease: Estimated GFR < 15 mL/min/1.73m2 Blood 01/07/2025 3:08 PM EDT 01/07/2025 5:13 PM EDT Adelaida Clement [facility] LAB BLOOD ORDERABLES Destinee l Result Performing Organization Address [facility] Co de Phone Number [facility] [address] [place] [phone] * Hepatitis C Antibody with Reflex to HCV, RNA, Quantitative, Real-Time PCR (01/07/2025 3:08 PM EDT) Pathologist [facility] Hepatitis C Antibody Nonreactive Nonreactive [facility] Comment:Antibodies to HCV no t detected; does not exclude early acuteHCV infection. Blood Venous blood specimen / Unknown 01/07/2025 3:08 PM EDT 01/07/2025 5:13 PM EDT Adelaida Rocaelg. v. [facility] LAB BLOOD ORDERABLES Destinee l Result Performing Organization Address [facility] Co de Phone Number [facility] [address] [place] [phone] * HIV-1/2 Antigen and Antibodies, Fourth Generation, with Reflexes (01/07/2025 3:08 PM EDT) Pathologist [facility] HIV AB/AG Nonreactive Nonreactive [facility] Comment:HIV-1 p24 Ag and/or HIV-1/HIV-2 Ab not detected.A test result that is nonreactive does not exclude thepossibility of exposure to or infection with HIV-1 and/orHIV-2. Nonreactive results in this assay for individualswith prior exposure to HIV-1 and/or HIV-2 may be due toantigen and antibody levels that are below the limit ofdetection of this assay.[facility] HIV Ag/Ab Combo assay result andsupplemental assay results should be interpreted inconjunction with the patient's clinical presentation,history and other laboratory results. If the results areinconsistent with clinical evidence, additional testing issuggested to confirm the result. Blood Venous blood specimen / Unknown 01/07/2025 3:08 PM EDT 01/07/2025 5:13 PM EDT Adelaida Clement [facility] LAB BLOOD ORDERABLES Destinee l Result Performing Organization Address [facility] Co de Phone Number [facility] [address] [place] [phone] * Hepatic Function Panel (01/07/2025 3:08 PM EDT) Bilirubin, Total 0.3 0.0 - 1.0 mg/dL [facility] Bilirubin, Direct 0.1 0.0 - 0.5 mg/dL [facility] Aspartate Amino Transferase 22 5 - 31 U/L [facility] Alanine Aminotransferase 15 0 - 31 U/L [facility] Total Protein 6.6 6.5 - 8.0 g/dL [facility] Albumin Level 4.5 3.5 - 5.0 g/dL [facility] Alkaline Phosphatase 52 39 - 117 U/L [facility] Blood Venous blood specimen / Unknown 01/07/2025 3:08 PM EDT 01/07/2025 5:13 PM EDT [facility] LAB BLOOD ORDERABLES Destinee l Result [facility] [address] [place] [phone] * STI testing add on (NG, CT, Trich) (01/07/2025 3:03 PM EDT) Trichomonas (NAAT) NOT DETECTED NOT DETECTED [facility] Comment:The analytical perfo rmance characteristics of thisassay have been determined by [employer]. Themodifications have not been cleared or approved bythe FDA. This assay has been validated pursuant to theCLIA regulations and is used for clinical purposes.For additional information, please refer tohttp://education.WhereNet/faq/Trichomonastma(This link is being provided for information/educational purposes only.)THIS TEST WAS PERFORMED AT:[employer] [place] [phone] ANTONIO MEJIA MD CTNG Ref Lab NOT DETECTED NOT DETECTED [facility] NG Ref Lab NOT DETECTED NOT DETECTED [facility] ThinPrep vial Cervix uteri structure / Unknown 01/07/2025 3:03 PM EDT 01/08/2025 8:30 AM EDT Narrative [facility] - 01/10/2025 12:32 AM EDT Collection Date: [id number] by: RASHMI Wright: Cervix us Adelaida VERDE LAB CYTOLOGY ORDERABLES F inal Result [facility] [address] [place] [phone] * HPV DNA, Low/High Risk (01/07/2025 3:03 PM EDT) HPV High Risk Negative Negative [facility] HPV Genotype 16 Negative Negative [facility] HPV Genotype 18 Negative Negative [facility] Comment:HPV testing performe d at [facility] (CLIA#[id number]), [address] [place] [phone].Testing for HPV was performed using the Deandre [...] EDT 01/08/2025 8:30 AM EDT us Adelaida Clement [facility] LAB BLOOD ORDERABLES Destinee lagunas Result [facility] [address] [place] [phone] * Pap Smear (01/07/2025 3:03 PM EDT) Swab Cervix uteri structure / Unknown 01/07/2025 3:03 PM EDT 01/08/2025 8:30 AM EDT Narrative [facility] - 01/10/2025 12:53 PM EDT ----- ------- Name: Shyla Torres Age/Sex: 34/F : 1990 Unit#: [id number] Attend Dr: Re01/07/25 Status: PRE REF Location: [facility] Disch: ----- ------- SPEC : [id number] RECD: 01/08/25 STATUS: ROMANA YODER NUM: [id number] KIMI: 01/07/251503 [facility] DR: ADELAIDA CLEMENT CNM ENTERED: 01/08/25 SP TYPE: Pap Smr OT DR: ORDERED: Pap Smear Interpretation Satisfactory for [...] and HPV testing will be performed at [facility] (CLIA #[id number]), [address] [place] [address]. Testing for HPV was performed using the [...] detected. All professional services are performed by [facility] ([address] [place] [address]; ; CLIA #[id number]). The PAP Test is a screening procedure with the inherent possibility of both false negative and false positive results. Results should be interpreted in the context of historic and current clinical findings. Reliability of the PAP Test is enhanced by performing the test on a regular repetitive basis. CONTINUED ON NEXT PAGE ----- ------- Name: Shyla Torres Age/Sex: 34/F : 1990 Unit#: [id number] Attend Dr: Re01/07/25 Status: PRE [facility] Dis[facility] ----- ------- SPEC : [id number] RECD: 01/08/25 STATUS: ROMANA YODER NUM: [id number] KIMI: 01/07/25-[address] [facility] [address]: ADELAIDA CLEMENT [facility] ENTERED: 01/08/25 SP TYPE: Pap Carlos SEARS DR: ORDERED: Pap Smear ----- ------- Signed (signature on file) RON Guido ([facility]) 01/10/25 9983 ----- ------- END OF REPORT Adelaida VERDE LAB CYTOLOGY ORDERABLES F inal Result Performing Organization Address [facility] Co de Phone Number [facility] [address] [place] [phone] * Lipid Panel, Standard (10/15/2024 11:18 AM EDT) Triglycerides 59 <150 mg/dL [facility] Comment:Desirable Triglyceri de: less than 150 mg/dLBorderline High Triglyceride 150-199 mg/dLHigh Triglyceride: 200-499 mg/dLVery High Triglyceride: greater than or equal to 5OO mg/dL Cholesterol 171 <200 mg/dL [facility] Comment:Desirable Cholestero l: less than 200 mg/dLBorderline High Cholesterol: 200-239 mg/dLHigh Cholesterol: greater than 239 mg/dL LDL Cholesterol Calculated 95 <100 mg/dL [facility] Comment:Desirable LDL: less than 100 mg/dLNear Optimal/Above Optimal LDL: 110- 129 mg/dLBorderline High LDL: 130-159 mg/dLHigh LDL: 160-189 mg/dLVery High LDL: greater than or equal to 190 mg/dL HDL Cholesterol 65 >40 mg/dL [facility] Comment:Desirable HDL: great er than 40 mg/dL Note: This HDL assay may give artificially low results in patients with liver disease. Blood Venous blood specimen / Unknown 10/15/2024 11:18 AM EDT 10/15/2024 1:22 PM EDT us Ruthie Clemens MD LAB BLOOD ORDERAB LES Final Result Performing Organization Address [facility]/ZIP Co de Phone Number [facility] [address] [place] [address] [phone] from Last 3 Months or Most Recently Relevant to Health Maintenance Insurance [facility] STANDARD DENTAL[facility] MEDICAID STAND ADULT Care Teams Paint Striping Machine Operator Relationship Specialty Start Date End Date Ruthie Hahn MD [address] [place] [phone] PCP - General Internal Medicine 02/21/23 Dixie Sutton Community Health Worker 02/21/24
--- OUTSIDE RECORDS SUMMARY | 2025-03-25 18:26 | XMS_ITS | Clinical Summary ---
Author Organization [employer] [facility] Address [address] [place] [address] Care Team Providers Care Referral Specialist Name Role Phone Unavailable Primary Care Provider [...] RESULTING AGENCY - 02/05/2020 12:10 PM EDT [id number] THINPREP PAP, IMAGED: NEGATIVE FOR SQUAMOUS INTRAEPITHELIAL LESION AND MALIGNANCY . REACTIVE CELLULAR CHANGES. CLUE CELLS ARE PRESENT. RON MA(ASCP) (CASE SCREENED 01 31 2020) ROSELIA MEREIDTH M.D. , PATHOLOGIST (CASE ELECTRONICALLY SIGNED 02 [...]
--- OUTSIDE RECORDS SUMMARY | 2025-03-25 18:26 | XMS_ITS | Encounter Summary ---
Author Organization [employer] Address [address] [place] [address] Care Team Providers Care [employer] Combination Teacher Name Role Phone Ruthie Hahn MD Primary Care Pro vider Dixie Sutton Unavailable Encounter Details Date Type Department Care Team ([facility] st Contact Info) Description 10/03/[address] [facility] MEDICINE [address] [place], [place] [phone] Ruthie Hahn MD [address] [place] [address] Social History Tobacco Use Types Packs/Day Years [...] on file documented as of this encounter Procedures Procedure Name Priority Date/Time Associated Diagnosis Comments HPV DNA, LOW/HIGH RISK Routine 01/07/2025 3:03 PM EDT PROTEIN, TOTAL AND PROTEIN ELECTROPHORESIS, RANDOM URINE Routine 12/12/2024 11:26 AM EDT documented in this encounter Results * HPV DNA, Low/High Risk (01/07/2025 3:03 PM EDT) HPV High Risk Negative Negative [facility] HPV Genotype 16 Negative Negative [facility] HPV Genotype 18 Negative Negative [facility] Comment:HPV testing performe d at [facility] (CLIA#[id number]), [address] [place] [phone].Testing for HPV was performed using the Deandre [...] 01/08/2025 8:30 AM EDT us Irina Michelle [facility] LAB BLOOD ORDERABLES Destinee janneth Result [facility] [address] [place] [address] [phone] * (ABNORMAL) Protein Electrophoresis and Total Protein, Random Urine (12/12/2024 11:26 AM EDT) PEU-Random Urine Creatinine 29 20 - 275 mg/dL [facility] PEU-Random Urine Protein <4(A) 5 - 24 mg/dL [facility] PEU-[place]. Prot/Creat Ratio NOTE 24 - 184 mg/g creat [facility] Comment:THE PROTEIN VALUE IS LESS THAN 4 MG/DLTHEREFORE WE ARE UNABLE TO CALCULATEEXCRETION AND/OR CREATININE RATIO. [facility]-Random Urine Albumin 0 % [facility] PEU-Random Urine A1 Globulin 0 % [facility] PEU-Random Urine A2 Globulin 0 % [facility] PEU-Random Urine Beta Globulin 0 % [facility] PEU-Random Ur. Gamma Globulin 0 % [facility] PEU Ran-Abn Protein Band 1 TNP [facility] PEU Ran-Abn Protein Band 2 TNP [facility] PEU Ran[facility]n [facility] 3 [facility]U-Random Urine Interpret. SEE NOTE [facility] Comment:Normal PatternTHIS T EST WAS PERFORMED AT:[facility] [place] [id number] ANTONIO MEJIA MD Protein/Creatinine Ratio NOTE 0.024 - 0.184 [facility] Comment:Result Units: mg/mg creat 12/12/2024 11:2 6 AM EDT 12/12/2024 4:16 PM EDT Ruthie Clemens MD LAB URINE ORDERAB LES Final Result [facility] [address] [place] [phone] [phone] documented in this encounter Visit Diagnoses Not on filedocumented in this encounter Additional Health Concerns Assessment Noted Time PHQ-9 Depression Total Score: 12 024 11:33 AM EDT documented as of this encounter Care Teams [employer] Combination Teacher Relationship Specialty Start Date End Date Ruthie Hahn MD [address] [place] [address] PCP - General Internal Medicine 02/21/23 Dixie Sutton Community Health Worker 02/21/24 documented as of this encounter
--- OUTSIDE RECORDS SUMMARY | 2025-03-25 18:26 | XMS_ITS | Encounter Summary ---
Author Organization [employer] Address [address] [facility] [address] [place] [address] Care Team Providers Care Pole Lift Operator Name Role Phone Ruthie Hahn MD Primary Care Pro vider Dixie Sutton Unavailable Reason for Visit * Reason Onset Date Comments Med Refill 12/05/2024 Encounter Details Date Type Department Care Team (Late st Contact Info) Description 12/05/2024 Refill [facility] ADULT DENTAL [address] [place] [address] Jan Kearney, DDS [address] [place] [address] Odontalgia; Irreversible pulpitis; Severe dental caries Social [...] documented as of this encounter Care Teams Pole Lift Operator Relationship Specialty Start Date End Date Ruthie Hahn MD [address] [place] [phone] PCP - General Internal Medicine 02/21/23 Dixie Sutton Community Health Worker 02/21/24 documented as of this encounter
== END 2025-03-25 16:41 | disposition home or self-care (01) ==
LOC: HO.HSM 15:44
PROVIDERS: PCP Student in an Organized Health Care Education/Training Program; Visit Provider Psychiatry & Neurology Neurology
DX: G37.9 Demyelinating disease of central nervous system, unspecified (principal)
CPT/HCPCS: 99214

== ENCOUNTER → 2025-03-25 15:43 | Outpatient (BNVA) | payer MEDICAID, SELFPAY | PROVIDERS: PCP Student in an Organized Health Care Education/Training Program; Visit Provider Psychiatry & Neurology Neurology | DX: G37.9 Demyelinating disease of central nervous system, unspecified (principal) | CPT/HCPCS: 99212 ==